=== PATIENT | female | born 1935 | race Caucasian/White ===

== ENCOUNTER → 2016-03-23 | Outpatient (CLI) | payer OTHER ==
[~2016-03-23] MED LIST: ASPI-808 PO; BENA10TA2 PO; BETAXOLOL; BNZ20T; CHOL10003 PO; IBUP-1773 PO; METO-270 PO
--- NOTE | 2016-03-23 14:13 | Diagnostic Imaging Report ---
PROCEDURE: CT abdomen and pelvis without contrast. TECHNIQUE: Multiple contiguous axial images were obtained through the abdomen and pelvis without the use of intravenous contrast. INDICATION: Gross hematuria. FINDINGS: The previous CT chest and abdomen exam performed on 05/03/2007 failed to show any sign of a renal mass or of an acute abnormality of either kidney. On this study, the kidneys appear similar to the prior exam. There is perinephric stranding about both kidneys but there is no evidence for hydronephrosis. There is no evidence for nephrolithiasis and there is no solid renal mass identified with certainty. In the interval since the previous study however, a very small 5 mm hyperdense nodule has developed along the anterior aspect of the inferior pole of the right kidney. This finding is most likely a benign process but ultrasound would be recommended to better characterize this density. There is no sign of urolithiasis. The urinary bladder is not well distended and consequently difficult to assess. There is no obvious bladder mass evident. The uterus is not enlarged. There are few diverticula in the sigmoid colon but there is no evidence for acute diverticulitis. As noted on the prior exam, the patient has undergone a right hemicolectomy. The anastomosis seems unchanged when compared to the previous study. Also, as noted on the prior exam, there has been a prior cholecystectomy. The proximal biliary tree is somewhat prominent but not significantly changed when compared to the prior study. There is no evidence for choledocholithiasis. The pancreas, the adrenals, the spleen, the aorta, and inferior vena cava show no sign of an acute abnormality. The stomach is not well distended and consequently difficult to assess. The lung bases are clear. The bone window show no evidence for fracture or for destructive lesion. IMPRESSION: 1. There is no sign of a solid renal mass or of hydronephrosis of either kidney to account for the patient's gross hematuria. The bladder is not well distended and consequently difficult to evaluate. There is no obvious bladder mass evident. If further study of the bladder is desired, then cystoscopy would be recommended. 2. The small 5 mm hyperdense nodule along the anterior aspect of the inferior pole of the right kidney is most likely a benign process. Ultrasound would be recommended for further study. 3. There is no acute abnormality of the abdomen or pelvis identified. Dictated by: Dictated on workstation # [id number]
== END ==
LOC: RAD 12:37
PROVIDERS: ATTEND Urology
DX: R31.0 Gross hematuria (principal)
CPT/HCPCS: 74176

== ENCOUNTER → 2016-03-29 | Outpatient (CLI) | payer OTHER ==
--- NOTE | 2016-03-29 15:21 | Diagnostic Imaging Report ---
Ultrasound of the right kidney. INDICATION: Focal lesion seen on CT scan in the right kidney. FINDINGS: The right kidney is 10.3 cm in length. There is an exophytic lesion from the lower pole of the right kidney measuring 0.7 cm in size with through transmission and no internal vascularity with color Doppler demonstrated likely related to a cyst. No hydronephrosis. IMPRESSION: A 0.7 cm exophytic lesion from the lower pole of the right kidney is likely a cyst. Dictated by: Dictated on workstation # [id number]
== END ==
LOC: RAD 11:27
PROVIDERS: ATTEND Urology
DX: N28.1 Cyst of kidney, acquired (principal)
CPT/HCPCS: 76775

== ENCOUNTER → 2016-04-11 | Outpatient (CLI) | payer OTHER ==
--- NOTE | 2016-04-11 14:42 | Diagnostic Imaging Report ---
EXAMINATION: Transabdominal and transvaginal pelvic ultrasound. INDICATION: Vaginal bleeding. FINDINGS: The uterus is 5.3 x 3.6 x 3.1 CM. There is significant endometrial thickening measuring 2.5 CM in thickness with internal vascularity seen concerning for endometrial carcinoma, hyperplasia or a polyp. The ovaries are obscured by bowel gas. IMPRESSION: The endometrial thickening and hypervascularity are concerning for endometrial cancer, hyperplasia or underlying polyp. Report was faxed to office of Margarita Earl by buddy at 2:41 p.m. Dictated by: Dictated on workstation # [id number]
== END ==
LOC: RAD 10:15
PROVIDERS: ATTEND Nurse Practitioner Family
DX: R93.5 Abnormal findings on diagnostic imaging of other abdominal regions, including retroperitoneum (principal); N93.9 Abnormal uterine and vaginal bleeding, unspecified
CPT/HCPCS: 76830; 76856

== ENCOUNTER 2016-05-01 12:21 | Outpatient (CLI) | payer OTHER ==
[~2016-05-01] VITALS: Ht 157.5 cm; Wt 78.5 kg
[~2016-05-01 12:21] MED LIST changes: -ASPI-808 PO; -BENA10TA2 PO; -CHOL10003 PO; -IBUP-1773 PO; -METO-270 PO
[2016-05-01] MEDS ORDERED: CHOL10003 PO (12:44)
[2016-05-01] MEDS ORDERED: METO-270 PO (12:44)
[2016-05-01] MEDS ORDERED: BENA10TA2 PO (12:44)
[2016-05-01] MEDS ORDERED: ASPI-808 PO (12:44)
[2016-05-01 13:04] VITALS: BP 150/86
[2016-05-01 14:04] LABS: BASOPHILS % (AUTO) 1 % (0-10); EOSINOPHILS # (AUTO) 0.3 10^3/uL (0.0-0.3); EOSINOPHILS % (AUTO) 4 % (0-10); LYMPHOCYTES # (AUTO) 1.4 X 10^3 (1.0-4.0); LYMPHOCYTES % (AUTO) 21 % (12-44); MEAN CORPUSCULAR HEMOGLOBIN 31 PG (25-34); MEAN CORPUSCULAR HGB CONC 34 G/DL (32-36); MEAN CORPUSCULAR VOLUME 91 FL (80-99); MEAN PLATELET VOLUME 10.6 FL (7.4-10.4); MONOCYTES # (AUTO) 0.6 X 10^3 (0.0-1.0); MONOCYTES % (AUTO) 9 % (0-12); NEUTROPHILS # (AUTO) 4.4 X 10^3 (1.8-7.8); NEUTROPHILS % (AUTO) 66 % (42-75); PLATELET COUNT 262 10^3/uL (130-400); RED BLOOD COUNT 4.13 10^6/uL (4.35-5.85); RED CELL DISTRIBUTION WIDTH 12.8 % (10.0-14.5); WHITE BLOOD COUNT 6.7 10^3/uL (4.3-11.0)
== END 2016-05-01 14:00 | disposition home or self-care (01) ==
LOC: PREOP 12:21
PROVIDERS: ATTEND Obstetrics & Gynecology
DX: Z01.812 Encounter for preprocedural laboratory examination (principal); Z11.2 Encounter for screening for other bacterial diseases; N95.0 Postmenopausal bleeding; R93.8 Abnormal findings on diagnostic imaging of other specified body structures
CPT/HCPCS: 36415; 85025; 86850; 86900; 86901; 87081

== ENCOUNTER 2016-05-04 08:05 | Day surgery (SDC) | payer OTHER ==
[~2016-05-04] VITALS: Ht 157.5 cm; Wt 78.5 kg
[~2016-05-04 08:05] MED LIST changes: +ASPI-808 PO; +BENA10TA2 PO; +CHOL10003 PO; +METO-270 PO
--- OUTSIDE RECORDS SUMMARY | 2016-05-04 08:16 | XMS REPORT | Continuity of Care Document ---
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 Medications Current Home Medications Medication Dose Units Route Directions Days/Qty Instructions Start Date Aspirin 325 Mg 325 Mg Oral Daily 05/01/16 Benazepril Hcl 10 Mg 10 Mg Oral Daily 05/01/16 Cholecalciferol (Vitamin D3) 1,000 Unit 1,000 Unit Oral Daily Metoprolol Succinate 25 Mg 25 Mg Oral Bedtime 05/01/16 Past Home Medications Medication Directions Ordered Status Benazepril Hcl 20 Mg Tablet, 03/12/07 Discontinued [Betaxolol] , 03/12/07 Discontinued Social History Social History Problem Response Recorded Date/Time Alcohol Use Denies Use 05/01/2016 12:35pm Recreational Drug Use No 05/01/2016 12:35pm Recent Foreign Travel No 05/01/2016 12:33pm Recent Infectious Disease Exposure No 05/01/2016 12:33pm Sexually Transmitted Disease No 05/01/2016 12:35pm HIV/AIDS No 05/01/2016 12:35pm Smoking Status Never a Smoker 05/01/2016 12:35pm Recent Hopitalizations No 05/01/2016 12:35pm Sexually Transmitted Disease No 05/01/2016 12:35pm Query Response Start Date Stop Date Smoking Status Never a Smoker Hospital Discharge Instructions No hospital discharge instructions. Plan of Care Discharge Date 05/01/16 2:00pm Prescriptions See Medication Section Functional Status No functional status results. Allergies, Adverse Reactions, Alerts Allergen Type Severity Reaction Status Last Updated Eorrged-Kfc-Ocn Reductase Inhibitors ([id number]) Allergy Intermediate MUSCLE WEAKNESS Active 05/01/16 Niacin Allergy Unknown FLUSHED/ALMOST PASSED Active 05/01/16 Immunizations No immunization records. Vital Signs Acute Vital Signs Vital Response Date/Time Pulse Rate (adult) 85 bpm (60 - 90) 05/01/2016 1:04pm Respiratory Rate 16 bpm (12 - 24) 05/01/2016 1:04pm O2 Sat by Pulse Oximetry 98 % (88 - 100) 05/01/2016 1:04pm Blood Pressure 150/86 mm Hg 05/01/2016 1:04pm Blood Pressure Mean 107 mm Hg 05/01/2016 1:04pm Pain Numeric Pain Scale 0-No Pain 05/01/2016 1:04pm Height (Feet) 5 feet 05/01/2016 12:33pm Height (Inches) 2.00 inches 05/01/2016 12:33pm Height (Calculated Centimeters) 157.813834 cm 05/01/2016 12:33pm Weight (Pounds) 173 pounds 05/01/2016 12:33pm Weight (Ounces) 0.0 oz 05/01/2016 12:33pm Weight (Calculated Grams) 67897.48 gm 05/01/2016 12:33pm Weight (Calculated Kilograms) 78.657552 kilograms 05/01/2016 12:33pm Calculated BMI 31.6 05/01/2016 12:33pm Results Pending Laboratory Results Test Name Collection Date/Time Pending Microbiology Results Procedure Source Collection Date/Time Procedures No known history of procedures. Encounters Encounter Location Arrival/Admit Date Discharge/Depart Date Attending Provider Registered Clinic [facility] 05/01/16 12:21pm BLAIR SILVEIRA DO Registered Clinic [facility] 04/11/16 10:15am GILMAR PATE APRN
--- OUTSIDE RECORDS SUMMARY | 2016-05-04 08:17 | XMS REPORT | Continuity of Care Document ---
Author Author [facility] Organization [facility] Address Unknown Phone Unavailable Care Team Providers Care User Support Analyst Supervisor Name Role Phone MONCHO SAN MD PCP Insurance Providers Payer Name Policy Number Subscriber Name Relationship [facility] [id number] Sherine Barragan 18 Self / Same As Patient Advance Directives Directive Response Recorded Date/Time Advance Directives Yes 05/01/16 12:35pm Health Care Power of Yeast Supervisor No 05/01/16 12:35pm Organ Donor No 03/12/07 [...] Allergen Type Severity Reaction Status Last Updated Yrhdqxi-Rvp-Cbd Reductase Inhibitors ([id number]) Allergy Intermediate MUSCLE WEAKNESS Active 05/01/16 Niacin [...] 2.00 inches 05/01/2016 12:33pm Height (Calculated Centimeters) 157.411491 cm 05/01/2016 12:33pm Weight (Pounds) 173 pounds 05/01/2016 12:33pm Weight (Ounces) 0.0 oz 05/01/2016 12:33pm Weight (Calculated Grams) 64545.48 gm 05/01/2016 12:33pm Weight (Calculated Kilograms) 78.413983 kilograms 05/01/2016 12:33pm Calculated BMI 31.6 05/01/2016 12:33pm Results Pending Laboratory Results Test Name Collection Date/Time Pending Microbiology Results Procedure Source Collection Date/Time Procedures No known history of procedures. Encounters Encounter Location Arrival/Admit Date Discharge/Depart Date Attending Provider Registered Clinic [facility] 05/01/16 12:21pm BLAIR SILVEIRA DO Registered Clinic [facility] 04/11/16 10:15am GILMAR PATE APRN
[2016-05-04 08:25] VITALS: BP 177/99
[2016-05-04] MEDS ORDERED: LACTATED RINGERS 1,000 ML IV SCH (08:25)
[2016-05-04] MEDS ORDERED: ONDANSETRON 4 MG/2 ML (SDV) Z0FRAN ONE (10:53)
[2016-05-04] MEDS ORDERED: fentaNYL INJECTION 100 MCG/2 ML AMP ONE (10:53)
[2016-05-04] MEDS ORDERED: LIDOCAINE PF 2% 10 ML (XYLOCAINE) AMP ONE (10:53)
[2016-05-04] MEDS ORDERED: SEVOFLURANE (ULTANE) 15 ML INHAL SOLN ONE (10:53)
[2016-05-04] MEDS ORDERED: proPOfol 200 MG/20 ML (DIPRIVAN) VIAL IV ONE (10:53)
[2016-05-04] MEDS ORDERED: LACTATED RINGERS 1,000 ML IV ONE (10:53)
[2016-05-04] MEDS ORDERED: LACTATED RINGERS 1,000 ML IV PRN (11:03)
[2016-05-04] MEDS ORDERED: D5 LR IV SOLUTION 1,000 ML IV SCH (11:09)
--- NOTE | 2016-05-04 11:09 | Progress Note-Pre Operative ---
Pre-Operative Progress Note H&P Reviewed The H&P was reviewed, patient examined and no changes noted. Date H&P Reviewed: May 04, 2016 Time H&P Reviewed: 10:30 Pre-Operative Diagnosis: PMB BLAIR SILVEIRA DO May 04, 2016 11:09 am
[2016-05-04] MEDS ORDERED: IBUP-1773 PO (11:11)
--- NOTE | 2016-05-04 11:12 | Discharge Inst-Women's Service ---
Discharge Inst-Women's Serv Depart Medication/Instructions New, Converted or Re-Newed RX: RX on Chart Consults/Follow Up Additional Follow Up: Yes Orders/Referrals Dr. Silveira 2 week follow up Activity Activity: Activity as Tolerated Driving Instructions: You May Drive NO SMOKING: NO SMOKING Nothing Inside Vagina: No Douching, No [place], No Tampons Diet Discharge Diet: No Restrictions Symptoms to Report to : Bleeding Excessive, Pain Increased, Fever Over 101 Degrees F, Vaginal Bleeding Increase, Questions/Concerns For Any Problems or Questions: Contact Your Physician BLAIR SILVEIRA DO May 04, 2016 11:12 am
[2016-05-04] MEDS ORDERED: BUPIVACAINE 0.25% 30 ML (SENSORCAINE) VIAL ONE (11:13)
[2016-05-04] MEDS ORDERED: ONDANSETRON 4 MG/2 ML (SDV) Z0FRAN IVP PRN ×2 (11:15→12:00)
[2016-05-04] MEDS ORDERED: KETOROLAC 30 MG/ML VIAL IVP ONE (11:15)
[2016-05-04] MEDS ORDERED: ESMOLOL 100 MG/10 ML (BREVIBLOC) VIAL ONE (11:25)
[2016-05-04] MEDS ORDERED: MEPERIDINE (DEMEROL) INJ 50 MG/ML IVP PRN (12:00)
[2016-05-04] MEDS: morphine INJ 10 MG/ML 1ML (SYR OR VIAL) IVP PRN ×2 (12:08→12:18)
[2016-05-04 12:45] VITALS: BP 167/69
[2016-05-04 13:15] VITALS: BP 174/85
[2016-05-04 13:23] VITALS: BP 174/85
--- NOTE | 2016-05-04 14:09 | OPERATIVE REPORT ---
PROCEDURE PHYSICIAN: BLAIR SILVEIRA DATE OF PROCEDURE: 05/04/2016 PREOPERATIVE DIAGNOSIS: Postmenopausal bleeding. POSTOPERATIVE DIAGNOSES: Postmenopausal bleeding. PROCEDURE: D&C with removal of urethral polyp. SURGEON: Dr. Blair Silveira. ANESTHESIA: LMA. ESTIMATED BLOOD LOSS: Minimal. URINE OUTPUT: 50 mL, clear at the end of the procedure. FLUIDS: In 1200 mL lactated ringer solution. FINDINGS: A urethral red lesion, which appears to be a polyp. Normal appearing endometrial tissue. A small amount was collected on endometrial curettings. SPECIMEN SENT: Urethral polyp and endometrial curettings. INDICATIONS FOR THE PROCEDURE: This 80-year-old female is a consultation in my office for postmenopausal bleeding episodes. She was counseled extensively in my office about what this could mean and the underlying causes which could in fact be malignancy or hyperplasia. I discussed with the patient and recommended proceeding with diagnostic measures in the form of D&C. This could also be curative as well if she continued to have bleeding. The risk of the procedure was discussed with the patient in detail including risk of bleeding, infection, perforation, damage to the uterus. After everything was discussed with the patient she was agreeable to proceed. Consent was obtained in the preoperative area and the patient was taken to the operating room. OPERATIVE REPORT IN DETAIL: Once in the operating room, general anesthesia was found to be adequate. She was placed in dorsal lithotomy position, prepped and draped in the normal sterile fashion. A timeout is performed. I first empty the patient's bladder and when I do so, I am able to see this red lesion protruding from the urethra. I grasp it using a long Allis clamp and I am able to remove it by twisting it and pulling. Once it is then twisted around several times the lesion does pop-off. There is a significant amount of bleeding noted from it which is made hemostatic using silver nitrate after which there is no bleeding noted and urethral patency is confirmed using straight catheterization. I then used a weighted speculum to retract the posterior wall of the vagina which allows me to grasp the cervix using a long Allis clamp. I gently dilate the cervix using Hegar dilators after performing a paracervical block at 3 and 9 o'clock positions using 0.25% Marcaine. Care was taken to infiltrate before injecting. A total of 10 mL are used. Once I dilate the cervix I collect endometrial curettings which is not to seen to be an overt amount of tissue. There is no active bleeding noted from that spot either, after which I remove all other instruments from the patient's vagina. There is an area of tearing due to vaginal atrophy on the posterior vaginal fourchette which is made hemostatic using silver nitrate. Other than that, the patient tolerated the procedure well and was taken to recovery area in stable condition. Lap and sponge count correct at the end of the procedure. Instrument count is correct as well. Job ID: [id number] Dictated Date: 05/04/2016 11:50:07 Campus Security Officer Date: 05/04/2016 13:39:40 / zaida
== END 2016-05-04 13:20 | disposition home or self-care (01) ==
LOC: SDC 08:05
PROVIDERS: ATTEND Obstetrics & Gynecology
DX: N95.0 Postmenopausal bleeding (principal); N36.2 Urethral caruncle
CPT/HCPCS: 88305; 94664

== ENCOUNTER → 2016-06-07 | Outpatient (CLI) | payer OTHER ==
[~2016-06-07] MED LIST changes: +IBUP-1773 PO
--- NOTE | 2016-06-08 20:23 | Diagnostic Imaging Report ---
Bilateral screening mammogram. The current study was also evaluated with a Computer Aided Detection (CAD) system. INDICATION: Screening. No current complaints stated on the questionnaire. COMPARISON: 03/02/15. FINDINGS: The breasts are composed of heterogeneously dense parenchyma which may decrease mammographic sensitivity. There are benign-appearing calcifications seen. Allowing for technique and positional differences, no suspicious change is seen. IMPRESSION: Dense breasts with no definite change. ACR BI-RADS Category 2: Benign findings. Result letter will be mailed to the patient. Note: At least 10% of breast cancer is not imaged by mammography. Dictated by: Dictated on workstation # [id number]
== END ==
LOC: RAD 10:51
PROVIDERS: ATTEND Nurse Practitioner Family
DX: C54.1 Malignant neoplasm of endometrium (principal)
CPT/HCPCS: 77067

== ENCOUNTER 2016-08-21 11:12 | Outpatient (RCR) | payer MEDICARE, OTHER ==
[~2016-08-21 11:12] MED LIST changes: -METO-270 PO; +METO-387 PO
[2016-11-23] MEDS ORDERED: HYDR-3816 PO (13:52)
== END 2016-08-30 10:55 | disposition home or self-care (01) ==
LOC: CR 11:12
PROVIDERS: ATTEND Internal Medicine Critical Care Medicine
DX: Z48.812 Encounter for surgical aftercare following surgery on the circulatory system (principal); Z95.5 Presence of coronary angioplasty implant and graft
CPT/HCPCS: 93798

== ENCOUNTER → 2016-11-02 | Outpatient (CLI) | payer MEDICARE ==
[~2016-11-02] MED LIST changes: +BARIUM SUSPENSION 2.1% (VANILLA SILQ) 450 ML PO ONE; +CATHETER FLUSH 10 ML SYR IV PRN; +IOHEXOL 350 MG/ML 100 ML (OMNIPAQUE 350) VIAL IV ONE; +METO-270 PO; -METO-387 PO; +NS 100 ML (IVPB) BAG IV ONE
--- NOTE | 2016-11-02 09:52 | Diagnostic Imaging Report ---
PROCEDURE: CT chest with contrast, CT abdomen and pelvis with and without contrast. TECHNIQUE: Pre and post intravenous contrast axial imaging of the abdomen and pelvis and post contrast axial imaging of the chest were performed. INDICATION: Uterine cancer. The previous CT abdomen/pelvis exam of 03/23/2016, noted that the uterus was not enlarged. Reportedly, in the interval since the prior exam, the patient has undergone a hysterectomy, and a diagnosis of uterine carcinoma has been established. On this exam there is a very small amount of free fluid low in the pelvis. This is nonspecific in appearance. There is no pelvic mass or free fluid collection noted. The urinary bladder is grossly unremarkable. As noted on the prior exam there are few diverticula in the sigmoid colon, but there is no evidence for acute diverticulitis. The appendix is not well visualized, but there are no indirect signs of acute appendicitis. The liver is of lower density than usually seen. This does suggest fatty metamorphosis. There is no focal mass involving the liver. The spleen, pancreas, adrenals, aorta, and inferior vena cava and kidneys show no sign of an acute abnormality. The 5-mm hyperdense nodule along the anterior aspect of the inferior pole of the right kidney seen on the previous exam is again evident and does not appear to have changed significantly. Most likely this is a benign process. The gallbladder is surgically absent. The stomach is partially filled with oral contrast and consequently difficult to assess. There is no obvious gastric abnormality evident. Images through the thorax show that the heart size is mildly enlarged. There are coronary artery calcifications evident. The aorta is not abnormally dilated, and there is no sign of a dissection. There is no defect within the pulmonary arteries to indicate a pulmonary embolus. The lungs are generally clear and well aerated. There is no mediastinal or hilar adenopathy. The thyroid gland is unremarkable. There is no obvious breast mass. The bone windows show no sign of a fracture or of a destructive lesion. IMPRESSION: 1. In the interval since the prior exam the patient has undergone a hysterectomy. There is no pelvic mass or adenopathy noted. There is a small amount of nonspecific free fluid in the pelvis however. 2. The remainder of the abdomen/ pelvis is stable when compared with the prior study. No new abnormality has developed, and there is no sign of metastatic disease. 3. There is no acute cardiopulmonary abnormality identified, and there is no evidence for metastatic disease to the thorax either. 4. The heart is mildly enlarged, and there are coronary artery calcifications evident. Dictated by: Dictated on workstation # [id number]
== END ==
LOC: RAD 08:24
PROVIDERS: ATTEND Internal Medicine Hematology & Oncology
DX: C55 Malignant neoplasm of uterus, part unspecified (principal); I25.10 Atherosclerotic heart disease of native coronary artery without angina pectoris; Z90.710 Acquired absence of both cervix and uterus
CPT/HCPCS: 71260; 74178

== ENCOUNTER 2016-11-17 10:38 | Outpatient (RCR) | payer MEDICARE ==
[2016-11-01 10:45] LABS: BASOPHILS % (AUTO) 1 % (0-10); EOSINOPHILS # (AUTO) 0.2 10^3/uL (0.0-0.3); EOSINOPHILS % (AUTO) 3 % (0-10); LYMPHOCYTES # (AUTO) 1.6 X 10^3 (1.0-4.0); LYMPHOCYTES % (AUTO) 25 % (12-44); MEAN CORPUSCULAR HEMOGLOBIN 30 PG (25-34); MEAN CORPUSCULAR HGB CONC 33 G/DL (32-36); MEAN CORPUSCULAR VOLUME 91 FL (80-99); MONOCYTES # (AUTO) 0.6 X 10^3 (0.0-1.0); MONOCYTES % (AUTO) 9 % (0-12); NEUTROPHILS % (AUTO) 62 % (42-75); PLATELET COUNT 240 10^3/uL (130-400); RED BLOOD COUNT 4.09 10^6/uL (4.35-5.85); RED CELL DISTRIBUTION WIDTH 12.5 % (10.0-14.5); WHITE BLOOD COUNT 6.5 10^3/uL (4.3-11.0)
[2016-11-01 11:03] LABS: ALBUMIN 3.9 GM/DL (3.2-4.5); BILIRUBIN,TOTAL 0.5 MG/DL (0.1-1.0); CALCIUM 9.4 MG/DL (8.5-10.1); CREATININE SERUM 1.02 MG/DL (0.60-1.30); POTASSIUM 3.8 MMOL/L (3.6-5.0)
[~2016-11-17 10:38] MED LIST changes: -BARIUM SUSPENSION 2.1% (VANILLA SILQ) 450 ML PO ONE; -CATHETER FLUSH 10 ML SYR IV PRN; -IOHEXOL 350 MG/ML 100 ML (OMNIPAQUE 350) VIAL IV ONE; -NS 100 ML (IVPB) BAG IV ONE
[2016-11-21] MEDS ORDERED: MULT-228 PO ×2 (09:38)
[2016-11-23] MEDS ORDERED: HYDR-3816 PO ×2 (13:52)
== END 2016-11-23 15:17 | disposition home or self-care (01) ==
LOC: ONC 10:38
PROVIDERS: ATTEND Internal Medicine Hematology & Oncology
DX: C54.1 Malignant neoplasm of endometrium (principal); I48.91 Unspecified atrial fibrillation; I25.10 Atherosclerotic heart disease of native coronary artery without angina pectoris; I10 Essential (primary) hypertension; E66.9 Obesity, unspecified; Z68.30 Body mass index [BMI] 30.0-30.9, adult; Z90.710 Acquired absence of both cervix and uterus; Z79.82 Long term (current) use of aspirin; Z79.899 Other long term (current) drug therapy
CPT/HCPCS: 36415; 80053; 85025; 99213; 99214

== ENCOUNTER 2016-11-21 05:38 | Outpatient (CLI) | payer MEDICARE ==
[~2016-11-21] VITALS: Ht 157.5 cm; Wt 73.9 kg
[2016-11-21] MEDS ORDERED: MULT-228 PO (09:38)
[2016-11-23] MEDS ORDERED: HYDR-3816 PO (13:52)
== END 2016-11-21 11:57 ==
LOC: PREOP 05:38
PROVIDERS: ATTEND Surgery
DX: Z01.818 Encounter for other preprocedural examination (principal); C54.1 Malignant neoplasm of endometrium

== ENCOUNTER 2016-11-23 10:44 | Day surgery (SDC) | payer MEDICARE ==
[~2016-11-23] VITALS: Ht 157.5 cm; Wt 73.9 kg
[~2016-11-23 10:44] MED LIST changes: +MULT-228 PO
[2016-11-23] MEDS ORDERED: ceFAZolin 1 GM/NS 50 ML IVPB IV ONE ×2 (11:15)
[2016-11-23] MEDS ORDERED: CATHETER FLUSH 10 ML SYR IV PRN (11:15)
[2016-11-23] MEDS ORDERED: HEParin (CENTRAL IV FLUSH) 500 UNIT/5 ML SYR ONE (11:54)
[2016-11-23] MEDS ORDERED: BUP/EPI 0.5% 1:200,000 (MARCAINE) 10ML VIAL IJ ONE ×2 (11:55)
[2016-11-23 11:56] VITALS: BP 131/87
[2016-11-23] MEDS ORDERED: LACTATED RINGERS 1,000 ML IV PRN (11:58)
[2016-11-23] MEDS ORDERED: fentaNYL INJECTION 100 MCG/2 ML AMP ONE (11:59)
[2016-11-23] MEDS ORDERED: MIDAZOLAM 2 MG/2 ML (VERSED) VIAL ONE (11:59)
--- NOTE | 2016-11-23 12:12 | Progress Note-Pre Operative ---
Pre-Operative Progress Note H&P Reviewed The H&P was reviewed, patient examined and no changes noted. Date Seen by Provider: Nov 23, 2016 Time Seen by Provider: 12:00 Date H&P Reviewed: Nov 23, 2016 Time H&P Reviewed: 12:00 Pre-Operative Diagnosis: endometrial cancer CELIO AUSTIN MD Nov 23, 2016 12:12 pm
[2016-11-23] MEDS ORDERED: ONDANSETRON 4 MG/2 ML (SDV) Z0FRAN IVP PRN (12:15)
[2016-11-23] MEDS ORDERED: HYDROcodone/APAP 5 MG/325 MG (LORTAB) TAB PO ONE (12:15)
[2016-11-23] MEDS ORDERED: morphine INJ 10 MG/ML 1ML (SYR OR VIAL) IVP PRN (12:15)
[2016-11-23] MEDS ORDERED: ACETAMINOPHEN 325 MG TABLET/CAPLET (TYLENOL) PO PRN (12:15)
[2016-11-23] MEDS ORDERED: LACTATED RINGERS 1,000 ML IV ONE (12:58)
[2016-11-23] MEDS ORDERED: PROPOFOL INJECTION 50 ML IV ONE (12:58)
[2016-11-23] MEDS ORDERED: proPOfol 200 MG/20 ML (DIPRIVAN) VIAL IV ONE (13:45)
--- NOTE | 2016-11-23 13:51 | Progress Note-Post Operative ---
Post-Operative Progess Note Surgeon (s)/Can Maker (s) Surgeon CELIO AUSTIN MD Can Maker: tin sawant FORESTRY EXTENSION SPECIALIST Pre-Operative Diagnosis endometrial cancer Post-Operative Diagnosis same Procedure & Operative Findings Date of Procedure 11/23/16 Procedure Performed/Findings placement left groshong implantable catheter under flouroscopy. Anesthesia Type MAC with local Estimated Blood Loss Estimated blood loss (mL): minimal Specimens/Packing Specimens Removed none CELIO AUSTIN MD Nov 23, 2016 1:51 pm
[2016-11-23] MEDS ORDERED: HYDR-3816 PO ×2 (13:52)
--- NOTE | 2016-11-23 13:57 | Discharge Inst-Surgical ---
D/C Lap Instructions-GEOVANNA New, Converted, or Re-Newed RX: RX on Chart Follow Up PRN Activity as tolerated Regular Diet Symptoms to Report: Fever over 101 degree F, Nausea/Vomiting Infection Signs and Symptoms to report: Increased redness, Foul odor of wound, Increased drainage Bathing instructions: May shower Operative Area Clean/Dry; Keep incision clean/dry If any problems/questions: Contact your physician or go to Emergency Room CELIO AUSTIN MD Nov 23, 2016 1:57 pm
[2016-11-23 14:25] VITALS: BP 165/88
--- NOTE | 2016-11-23 14:32 | Diagnostic Imaging Report ---
INDICATION: Status post central line placement COMPARISON: 03/13/2007 FINDINGS: Single frontal view of the chest demonstrates normal heart size and pulmonary vascularity. The lungs are well aerated and clear. No large pleural effusion or pneumothorax is seen. The visualized osseous structures show no acute abnormalities. Left subclavian central venous catheter is present with the tip in the high SVC. IMPRESSION: 1. No acute cardiopulmonary process. 2. Left subclavian central venous catheter with tip in the high SVC. Dictated by: Dictated on workstation # [id number]
[2016-11-23 14:55] VITALS: BP 151/81
[2016-11-23 15:25] VITALS: BP 150/82
[2016-11-23 15:40] VITALS: BP 150/82
--- NOTE | 2016-11-23 16:34 | Diagnostic Imaging Report ---
EXAMINATION: Intraoperative view of the chest. INDICATION: Port placement. FLUOROSCOPY TIME: 10 seconds of fluoroscopy time was provided. IMPRESSION: The provided image demonstrates a left subclavian port placed with the tip at the SVC level. Dictated by: Dictated on workstation # [id number]
--- NOTE | 2016-11-23 23:46 | OPERATIVE REPORT ---
DATE OF SERVICE: 11/23/2016 PRIMARY CARE PHYSICIAN: Dr. Desiree Felix. PREOPERATIVE DIAGNOSIS: Endometrial adenocarcinoma. POSTOPERATIVE DIAGNOSIS: Endometrial adenocarcinoma. PROCEDURE: Placement of left subclavian Groshong implantable catheter under fluoroscopy. SURGEON: Dr. Austin. ANIMAL HUMANE AGENT SUPERVISOR: Vinayak Davey APRN. ANESTHESIA: Monitored anesthesia care with local. ESTIMATED BLOOD LOSS: Minimal. FINDINGS: Catheter tip at superior vena cava - right atrial junction. DISPOSITION: The patient tolerated the procedure well. INDICATIONS: The patient is a 80-year-old female who reports that around January 2016, she developed an episode of vaginal bleeding which was a new finding for her. She underwent further evaluation for this and eventually was seen by FIRE EXTINGUISHER REPAIRER. A biopsy was taken and this did confirm adenocarcinoma of the endometrium. During this process, she also developed cardiac issues requiring cardiac catheterization and stent placement as well as anticoagulation therapy. This did delay her surgery. Eventually, she did undergo a laparoscopic total hysterectomy. She has also been seen by oncology. At this time, they do recommend a chemotherapy which will be started within the next few weeks. For this, she will require Groshong implantable catheter. DESCRIPTION OF PROCEDURE: The patient was brought to the operating room, laid supine on the table. After adequate IV pain and sedative medications and monitored anesthesia care, the neck and chest were prepped and draped in standard surgical fashion. A 1% lidocaine with epinephrine was then used to anesthetize the overlying skin in the left subclavian region and just inferior to this. The left subclavian vein was then cannulated with drawing the venous blood. The guidewire was then inserted under fluoroscopy. The cannulated needle removed and a skin incision made using a 15 blade. The dilator and sheath were then introduced over the guidewire. The dilator and the guidewire were then removed and the Groshong implantable catheter was placed under direct visualization and the sheath removed. The catheter tip was placed at the superior vena cava - right atrial junction. The inner wire within the catheter was then removed. The catheter cut down the size from the port placed onto the catheter. The skin incision was then extended laterally and the subcutaneous chest reservoir was then created. A plane between the subcutaneous fat and the anterior pectoralis fascia was created using blunt dissection as well as electrocautery with the visualization of good hemostasis. The port was then placed in the reservoir and sutured to the fascia using interrupted 3-0 Vicryl sutures. The subcutaneous tissue was then reapproximated using 3-0 Vicryl interrupted sutures. Skin was closed using 4-0 Monocryl running subcuticular suture. The wound was then cleaned and covered with Dermabond. The patient tolerated the procedure well. We will get a post-procedure chest x-ray and once placement was confirmed, the catheter may be accessed and used at any time. Job ID: [id number] DocumentID: [id number] Dictated Date: 11/23/2016 14:06:24 Folded Cloth Taper Date: 11/23/2016 23:45:50 Dictated By: CELIO AUSTIN MD
== END 2016-11-23 15:40 | disposition home or self-care (01) ==
LOC: SDC 10:44
PROVIDERS: ATTEND Surgery
DX: C54.1 Malignant neoplasm of endometrium (principal); I25.10 Atherosclerotic heart disease of native coronary artery without angina pectoris; I48.91 Unspecified atrial fibrillation; I10 Essential (primary) hypertension; Z90.710 Acquired absence of both cervix and uterus; Z95.1 Presence of aortocoronary bypass graft; Z79.82 Long term (current) use of aspirin; Z79.899 Other long term (current) drug therapy
CPT/HCPCS: 71010; 87081

== ENCOUNTER 2017-01-29 09:13 | Outpatient (RCR) | payer MEDICARE ==
[2016-11-30 09:55] LABS: BASOPHILS % (AUTO) 0 % (0-10); EOSINOPHILS % (AUTO) 0 % (0-10); HEMATOCRIT 36 % (35-52); LYMPHOCYTES # (AUTO) 0.6 X 10^3 (1.0-4.0); LYMPHOCYTES % (AUTO) 9 % (12-44); MEAN CORPUSCULAR HEMOGLOBIN 31 PG (25-34); MEAN CORPUSCULAR HGB CONC 34 G/DL (32-36); MEAN CORPUSCULAR VOLUME 91 FL (80-99); MEAN PLATELET VOLUME 10.3 FL (7.4-10.4); MONOCYTES # (AUTO) 0.1 X 10^3 (0.0-1.0); MONOCYTES % (AUTO) 1 % (0-12); NEUTROPHILS # (AUTO) 6.8 X 10^3 (1.8-7.8); NEUTROPHILS % (AUTO) 91 % (42-75); PLATELET COUNT 248 10^3/uL (130-400); RED BLOOD COUNT 3.93 10^6/uL (4.35-5.85); RED CELL DISTRIBUTION WIDTH 12.3 % (10.0-14.5); WHITE BLOOD COUNT 7.5 10^3/uL (4.3-11.0)
[2016-11-30 10:10] LABS: ALBUMIN 3.9 GM/DL (3.2-4.5); BILIRUBIN,TOTAL 0.3 MG/DL (0.1-1.0); CALCIUM 9.6 MG/DL (8.5-10.1); CREATININE SERUM 0.9 MG/DL (0.60-1.30); POTASSIUM 3.9 MMOL/L (3.6-5.0); TOTAL PROTEIN 7.2 GM/DL (6.4-8.2)
[2016-12-07 12:36] LABS: BASOPHILS % (AUTO) 0 % (0-10); EOSINOPHILS % (AUTO) 0 % (0-10); HEMATOCRIT 36 % (35-52); HEMOGLOBIN 11.7 G/DL (11.5-16.0); LYMPHOCYTES # (AUTO) 0.4 X 10^3 (1.0-4.0); LYMPHOCYTES % (AUTO) 6 % (12-44); MEAN CORPUSCULAR HEMOGLOBIN 30 PG (25-34); MEAN CORPUSCULAR HGB CONC 33 G/DL (32-36); MEAN CORPUSCULAR VOLUME 91 FL (80-99); MEAN PLATELET VOLUME 10.3 FL (7.4-10.4); MONOCYTES % (AUTO) 0 % (0-12); NEUTROPHILS # (AUTO) 6.4 X 10^3 (1.8-7.8); NEUTROPHILS % (AUTO) 94 % (42-75); PLATELET COUNT 277 10^3/uL (130-400); RED CELL DISTRIBUTION WIDTH 12.2 % (10.0-14.5); WHITE BLOOD COUNT 6.8 10^3/uL (4.3-11.0)
[2016-12-07 12:53] LABS: CALCIUM 9.5 MG/DL (8.5-10.1); CREATININE SERUM 0.96 MG/DL (0.60-1.30); POTASSIUM 4.2 MMOL/L (3.6-5.0)
[2016-12-14 09:48] LABS: BASOPHILS % (AUTO) 1 % (0-10); EOSINOPHILS % (AUTO) 1 % (0-10); HEMATOCRIT 36 % (35-52); LYMPHOCYTES # (AUTO) 0.4 X 10^3 (1.0-4.0); LYMPHOCYTES % (AUTO) 20 % (12-44); MEAN CORPUSCULAR HEMOGLOBIN 31 PG (25-34); MEAN CORPUSCULAR HGB CONC 34 G/DL (32-36); MEAN CORPUSCULAR VOLUME 92 FL (80-99); MEAN PLATELET VOLUME 10.1 FL (7.4-10.4); MONOCYTES % (AUTO) 1 % (0-12); NEUTROPHILS # (AUTO) 1.6 X 10^3 (1.8-7.8); NEUTROPHILS % (AUTO) 78 % (42-75); PLATELET COUNT 301 10^3/uL (130-400); RED BLOOD COUNT 3.88 10^6/uL (4.35-5.85); RED CELL DISTRIBUTION WIDTH 12.2 % (10.0-14.5)
[2016-12-14 10:02] LABS: CALCIUM 9.7 MG/DL (8.5-10.1); CREATININE SERUM 1.02 MG/DL (0.60-1.30); POTASSIUM 4.3 MMOL/L (3.6-5.0)
[2016-12-21 10:49] LABS: BASOPHILS # (AUTO) 0.1 10^3/uL (0.0-0.1); BASOPHILS % (AUTO) 2 % (0-10); EOSINOPHILS # (AUTO) 0.2 10^3/uL (0.0-0.3); EOSINOPHILS % (AUTO) 5 % (0-10); HEMATOCRIT 34 % (35-52); HEMOGLOBIN 11.6 G/DL (11.5-16.0); LYMPHOCYTES % (AUTO) 27 % (12-44); MEAN CORPUSCULAR HEMOGLOBIN 31 PG (25-34); MEAN CORPUSCULAR HGB CONC 34 G/DL (32-36); MEAN CORPUSCULAR VOLUME 92 FL (80-99); MEAN PLATELET VOLUME 9.8 FL (7.4-10.4); MONOCYTES # (AUTO) 0.8 X 10^3 (0.0-1.0); MONOCYTES % (AUTO) 20 % (0-12); NEUTROPHILS # (AUTO) 1.8 X 10^3 (1.8-7.8); NEUTROPHILS % (AUTO) 46 % (42-75); PLATELET COUNT 277 10^3/uL (130-400); RED BLOOD COUNT 3.75 10^6/uL (4.35-5.85); RED CELL DISTRIBUTION WIDTH 13.4 % (10.0-14.5); WHITE BLOOD COUNT 3.9 10^3/uL (4.3-11.0)
[2016-12-21 11:12] LABS: BUN/CREATININE RATIO 18; CALCIUM 9.2 MG/DL (8.5-10.1); CARBON DIOXIDE 23 MMOL/L (21-32); CHLORIDE 110 MMOL/L (98-107); CREATININE SERUM 0.88 MG/DL (0.60-1.30); GFR ESTIMATED > 60; GLUCOSE 118 MG/DL (70-105); POTASSIUM 3.4 MMOL/L (3.6-5.0); SODIUM 142 MMOL/L (135-145)
[2017-01-01 09:43] LABS: BASOPHILS % (AUTO) 0 % (0-10); EOSINOPHILS % (AUTO) 0 % (0-10); HEMATOCRIT 36 % (35-52); HEMOGLOBIN 11.9 G/DL (11.5-16.0); LYMPHOCYTES # (AUTO) 0.5 X 10^3 (1.0-4.0); LYMPHOCYTES % (AUTO) 9 % (12-44); MEAN CORPUSCULAR HEMOGLOBIN 31 PG (25-34); MEAN CORPUSCULAR HGB CONC 34 G/DL (32-36); MEAN CORPUSCULAR VOLUME 92 FL (80-99); MONOCYTES % (AUTO) 1 % (0-12); NEUTROPHILS # (AUTO) 5.1 X 10^3 (1.8-7.8); NEUTROPHILS % (AUTO) 90 % (42-75); PLATELET COUNT 223 10^3/uL (130-400); RED BLOOD COUNT 3.84 10^6/uL (4.35-5.85); RED CELL DISTRIBUTION WIDTH 13.7 % (10.0-14.5); WHITE BLOOD COUNT 5.7 10^3/uL (4.3-11.0)
[2017-01-01 10:01] LABS: BILIRUBIN,TOTAL 0.4 MG/DL (0.1-1.0); CALCIUM 9.4 MG/DL (8.5-10.1); CREATININE SERUM 0.97 MG/DL (0.60-1.30); MAGNESIUM 1.9 MG/DL (1.8-2.4); POTASSIUM 4.5 MMOL/L (3.6-5.0); TOTAL PROTEIN 6.8 GM/DL (6.4-8.2)
[2017-01-08 10:02] LABS: BASOPHILS % (AUTO) 1 % (0-10); EOSINOPHILS # (AUTO) 0.3 10^3/uL (0.0-0.3); EOSINOPHILS % (AUTO) 6 % (0-10); HEMATOCRIT 34 % (35-52); HEMOGLOBIN 11.5 G/DL (11.5-16.0); LYMPHOCYTES # (AUTO) 1.1 X 10^3 (1.0-4.0); LYMPHOCYTES % (AUTO) 23 % (12-44); MEAN CORPUSCULAR HEMOGLOBIN 32 PG (25-34); MEAN CORPUSCULAR HGB CONC 34 G/DL (32-36); MEAN CORPUSCULAR VOLUME 93 FL (80-99); MEAN PLATELET VOLUME 9.6 FL (7.4-10.4); MONOCYTES # (AUTO) 0.3 X 10^3 (0.0-1.0); MONOCYTES % (AUTO) 7 % (0-12); NEUTROPHILS % (AUTO) 63 % (42-75); PLATELET COUNT 234 10^3/uL (130-400); RED BLOOD COUNT 3.65 10^6/uL (4.35-5.85); RED CELL DISTRIBUTION WIDTH 13.4 % (10.0-14.5); WHITE BLOOD COUNT 4.8 10^3/uL (4.3-11.0)
[2017-01-08 10:16] LABS: BUN/CREATININE RATIO 19; CALCIUM 9.2 MG/DL (8.5-10.1); CARBON DIOXIDE 24 MMOL/L (21-32); CHLORIDE 108 MMOL/L (98-107); CREATININE SERUM 0.84 MG/DL (0.60-1.30); GFR ESTIMATED > 60; GLUCOSE 96 MG/DL (70-105); POTASSIUM 4.6 MMOL/L (3.6-5.0); SODIUM 139 MMOL/L (135-145)
[2017-01-15 09:25] LABS: BASOPHILS % (AUTO) 1 % (0-10); EOSINOPHILS # (AUTO) 0.1 10^3/uL (0.0-0.3); EOSINOPHILS % (AUTO) 2 % (0-10); HEMATOCRIT 32 % (35-52); HEMOGLOBIN 10.8 G/DL (11.5-16.0); LYMPHOCYTES # (AUTO) 1.3 X 10^3 (1.0-4.0); LYMPHOCYTES % (AUTO) 32 % (12-44); MEAN CORPUSCULAR HEMOGLOBIN 32 PG (25-34); MEAN CORPUSCULAR HGB CONC 34 G/DL (32-36); MEAN CORPUSCULAR VOLUME 93 FL (80-99); MEAN PLATELET VOLUME 9.7 FL (7.4-10.4); MONOCYTES # (AUTO) 0.4 X 10^3 (0.0-1.0); MONOCYTES % (AUTO) 9 % (0-12); NEUTROPHILS # (AUTO) 2.3 X 10^3 (1.8-7.8); NEUTROPHILS % (AUTO) 57 % (42-75); PLATELET COUNT 291 10^3/uL (130-400); RED BLOOD COUNT 3.43 10^6/uL (4.35-5.85); RED CELL DISTRIBUTION WIDTH 13.3 % (10.0-14.5); WHITE BLOOD COUNT 4.1 10^3/uL (4.3-11.0)
[2017-01-15 09:42] LABS: CALCIUM 9.1 MG/DL (8.5-10.1); CREATININE SERUM 1.01 MG/DL (0.60-1.30); POTASSIUM 4.3 MMOL/L (3.6-5.0)
[2017-01-22 11:01] LABS: BASOPHILS % (AUTO) 1 % (0-10); EOSINOPHILS # (AUTO) 0.1 10^3/uL (0.0-0.3); EOSINOPHILS % (AUTO) 2 % (0-10); HEMATOCRIT 32 % (35-52); HEMOGLOBIN 10.7 G/DL (11.5-16.0); LYMPHOCYTES # (AUTO) 1.3 X 10^3 (1.0-4.0); LYMPHOCYTES % (AUTO) 36 % (12-44); MEAN CORPUSCULAR HEMOGLOBIN 32 PG (25-34); MEAN CORPUSCULAR HGB CONC 34 G/DL (32-36); MEAN CORPUSCULAR VOLUME 94 FL (80-99); MEAN PLATELET VOLUME 9.7 FL (7.4-10.4); MONOCYTES # (AUTO) 0.4 X 10^3 (0.0-1.0); MONOCYTES % (AUTO) 11 % (0-12); NEUTROPHILS # (AUTO) 1.8 X 10^3 (1.8-7.8); NEUTROPHILS % (AUTO) 50 % (42-75); PLATELET COUNT 314 10^3/uL (130-400); RED BLOOD COUNT 3.36 10^6/uL (4.35-5.85); RED CELL DISTRIBUTION WIDTH 13.7 % (10.0-14.5); WHITE BLOOD COUNT 3.7 10^3/uL (4.3-11.0)
[2017-01-22 11:25] LABS: BUN/CREATININE RATIO 26; CALCIUM 9.1 MG/DL (8.5-10.1); CARBON DIOXIDE 22 MMOL/L (21-32); CHLORIDE 110 MMOL/L (98-107); CREATININE SERUM 0.84 MG/DL (0.60-1.30); GFR ESTIMATED > 60; GLUCOSE 103 MG/DL (70-105); POTASSIUM 4.2 MMOL/L (3.6-5.0); SODIUM 139 MMOL/L (135-145)
[~2017-01-29] VITALS: Ht 154.9 cm; Wt 75.3 kg
[~2017-01-29 09:13] MED LIST changes: +ALTEPLASE 2 MG (CATHFLO) CANCER CENTER IV ONE; +CARBOPLATIN 140 MG in D5W 50 ML IV(CANCER CTR) 50 ML IV SCH; +CARBOPLATIN IV SCH; +CYANOCOBALAMIN INJ 1000 MCG/ML (CANCER CENTER) ONE; +D5W IV SCH; +DEXAMETHASONE IV ONE; +FAMOTIDINE 20MG/2ML IV (CANCER CTR) IV SCH; +HYDR-3816 PO; -METO-270 PO; +METO-387 PO; +NS IV 1000 ML (CANCER CTR) IV SCH; +PACLITAXEL 110 MG in NORMAL SALINE (CANCER CENTER) 250 ML IV SCH; +PACLITAXEL 140 MG in NORMAL SALINE (CANCER CENTER) 250 ML IV SCH; +PALONOSETRON 0.25 MG, DEXAMETHASONE 10 MG/NS 50 ML IVPB IV PRN; +PALONOSETRON HCL IV ONE; +[UNRECOGNIZED DRUG - OTHER] IV ONE; +diphenhydrAMINE 25 MG TAB (BENADRYL) CANCER CENTER PO SCH
== END 2017-02-26 | disposition home or self-care (01) ==
LOC: ONC 09:13
PROVIDERS: ATTEND Internal Medicine Hematology & Oncology
DX: Z51.11 Encounter for antineoplastic chemotherapy (principal); C54.1 Malignant neoplasm of endometrium; I48.91 Unspecified atrial fibrillation; I25.10 Atherosclerotic heart disease of native coronary artery without angina pectoris; I10 Essential (primary) hypertension; E66.9 Obesity, unspecified; Z68.30 Body mass index [BMI] 30.0-30.9, adult; Z90.710 Acquired absence of both cervix and uterus; Z79.82 Long term (current) use of aspirin; Z79.899 Other long term (current) drug therapy
CPT/HCPCS: 36415; 36591; 36593; 80048; 80053; 83735; 85025; 87324; 87449; 96374; 96375; 96413; 96417

== ENCOUNTER 2017-05-28 12:50 | Outpatient (RCR) | payer MEDICARE ==
[~2017-05-28 12:50] MED LIST changes: -ALTEPLASE 2 MG (CATHFLO) CANCER CENTER IV ONE; -CARBOPLATIN 140 MG in D5W 50 ML IV(CANCER CTR) 50 ML IV SCH; -CARBOPLATIN IV SCH; -CYANOCOBALAMIN INJ 1000 MCG/ML (CANCER CENTER) ONE; -D5W IV SCH; -DEXAMETHASONE IV ONE; -FAMOTIDINE 20MG/2ML IV (CANCER CTR) IV SCH; +HYDR-34 PO; -HYDR-3816 PO; -NS IV 1000 ML (CANCER CTR) IV SCH; -PACLITAXEL 110 MG in NORMAL SALINE (CANCER CENTER) 250 ML IV SCH; -PACLITAXEL 140 MG in NORMAL SALINE (CANCER CENTER) 250 ML IV SCH; -PALONOSETRON 0.25 MG, DEXAMETHASONE 10 MG/NS 50 ML IVPB IV PRN; -PALONOSETRON HCL IV ONE; -[UNRECOGNIZED DRUG - OTHER] IV ONE; -diphenhydrAMINE 25 MG TAB (BENADRYL) CANCER CENTER PO SCH
== END 2017-06-03 | disposition home or self-care (01) ==
LOC: ONC 12:50
PROVIDERS: ATTEND Internal Medicine Hematology & Oncology
DX: C54.1 Malignant neoplasm of endometrium (principal); I48.91 Unspecified atrial fibrillation; I25.10 Atherosclerotic heart disease of native coronary artery without angina pectoris; I10 Essential (primary) hypertension; E66.9 Obesity, unspecified; Z68.30 Body mass index [BMI] 30.0-30.9, adult; Z90.710 Acquired absence of both cervix and uterus; Z79.82 Long term (current) use of aspirin; Z79.899 Other long term (current) drug therapy; Z45.2 Encounter for adjustment and management of vascular access device
CPT/HCPCS: 99213

== ENCOUNTER → 2017-05-31 | Outpatient (CLI) | payer MEDICARE ==
[~2017-05-31] MED LIST changes: +BARIUM SUSPENSION 2.1% (VANILLA SILQ) 450 ML PO ONE; +CATHETER FLUSH 10 ML SYR IV PRN; +IOHEXOL 350 MG/ML 100 ML (OMNIPAQUE 350) VIAL IV ONE; +NS 250 ML (IVPB) BAG IV ONE
--- NOTE | 2017-05-31 15:32 | Diagnostic Imaging Report ---
PROCEDURE: CT chest, abdomen, and pelvis with contrast. TECHNIQUE: Multiple contiguous axial images were obtained through the chest, abdomen, and pelvis after the administration of intravenous contrast. INDICATION: Endometrial adenocarcinoma. FINDINGS: The previous CT chest, abdomen, and pelvis exam of 11/02/2016 noted postsurgical changes consistent with a prior hysterectomy. On this exam, the images of the pelvis again show that the uterus is surgically absent. There is no pelvic mass or free fluid collection evident. The urinary bladder is only partially filled and consequently difficult to assess. There is no obvious bladder abnormality evident. There is diverticulosis of the sigmoid and descending colon, but there is no sign of acute diverticulitis. The appendix was not well-visualized, but there are no indirect signs of acute appendicitis. The previous study did show a small 5 mm hypodense nodule along the anterior aspect of the inferior pole of the left kidney. That finding is again evident and appears stable. This may represent a small cyst. The right kidney is no different than on the prior exam. The liver is homogeneous and not enlarged. The spleen, pancreas, adrenals, aorta, and inferior vena cava show no sign of an acute abnormality. The gallbladder is surgically absent. The hiatal hernia seen previously is again evident and no different. The stomach itself is partially filled with oral contrast and difficult to assess. The images through the thorax show that the lungs are clear and well aerated. There is no sign of an acute abnormality, and there is no parenchymal lung mass identified. The heart is enlarged, and there are coronary artery calcifications evident. The heart is stable when compared to the prior study. The aorta and the pulmonary arteries are unchanged when compared to the prior exam. There is no mediastinal or hilar adenopathy. The thyroid gland is generally unremarkable. The bone window show no evidence for a fracture or for a destructive lesion. IMPRESSION: 1. The appearance of the chest, abdomen, and pelvis is stable when compared to the prior exam. No new abnormality has developed. In particular, there is no sign of metastatic disease related to the patient's diagnosis of endometrial carcinoma. 2. The small 5 mm low-density lesion involving the left kidney seen previously appears stable. Most likely, this is a benign process such as a cyst. 3. There is cardiomegaly and coronary artery disease. 4. The gallbladder and uterus are surgically absent. Dictated by: Dictated on workstation # [id number]
== END ==
LOC: RAD 13:01
PROVIDERS: ATTEND Internal Medicine Hematology & Oncology
DX: C54.1 Malignant neoplasm of endometrium (principal); N28.9 Disorder of kidney and ureter, unspecified; Z90.49 Acquired absence of other specified parts of digestive tract; Z90.711 Acquired absence of uterus with remaining cervical stump
CPT/HCPCS: 71260; 74177

== ENCOUNTER 2017-06-05 13:58 | Outpatient (RCR) | payer MEDICARE ==
[~2017-06-05 13:58] MED LIST changes: -BARIUM SUSPENSION 2.1% (VANILLA SILQ) 450 ML PO ONE; -BENA10TA2 PO; +BENA10TA7 PO; -CATHETER FLUSH 10 ML SYR IV PRN; -IOHEXOL 350 MG/ML 100 ML (OMNIPAQUE 350) VIAL IV ONE; -NS 250 ML (IVPB) BAG IV ONE
[2017-07-21] MEDS ORDERED: NITR100C PO (20:31)
== END 2017-09-03 | disposition home or self-care (01) ==
LOC: ONC 13:58
PROVIDERS: ATTEND Internal Medicine Hematology & Oncology
DX: C54.1 Malignant neoplasm of endometrium (principal); I48.91 Unspecified atrial fibrillation; I25.10 Atherosclerotic heart disease of native coronary artery without angina pectoris; I10 Essential (primary) hypertension; E66.9 Obesity, unspecified; Z68.30 Body mass index [BMI] 30.0-30.9, adult; Z90.710 Acquired absence of both cervix and uterus; Z79.82 Long term (current) use of aspirin; Z79.899 Other long term (current) drug therapy
CPT/HCPCS: 99213

== ENCOUNTER 2017-07-21 19:29 | Emergency (ER) | payer MEDICARE ==
[~2017-07-21] VITALS: Ht 157.5 cm; Wt 79.4 kg
[~2017-07-21 19:29] MED LIST changes: +BENA10TA2 PO; -BENA10TA7 PO
--- NOTE | 2017-07-21 19:50 | ED Fall/Injury ---
General Stated Complaint: FELL,BACK PAIN Source: patient, other (friend) Exam Limitations: no limitations History of Present Illness Date Seen by Provider: July 21, 2017 Time Seen by Provider: 19:36 Initial Comments The patient presents to the ER by private conveyance with a chief complaint that she had a fall approximately 1-1/2 hours ago. She was getting into her bathtub and fell landing her right ribs and side against the wall that time. She has never had a fall before. She does not have any dysuria, imbalance, mental fogginess. She denies that she lost consciousness or struck her head. She took Tylenol and about an hour prior that she had taken her daily 325 mg aspirin. She says the pain is more than what she is used to and she is concerned she might a cracked a rib she wanted checked out. Allergies and Home Medications Allergies Coded Allergies: Rmwftqx-Yxc-Jwm Reductase Inhibitor (Verified Allergy, Intermediate, MUSCLE WEAKNESS, 05/01/16) niacin (Verified Allergy, Unknown, FLUSHED/ALMOST PASSED, 05/01/16) Home Medications Aspirin 325 Mg Tablet, 325 MG PO DAILY, (Reported) Benazepril HCl 10 Mg Tablet, 10 MG PO DAILY, (Reported) Cholecalciferol (Vitamin D3) 1,000 Unit Tablet, 1,000 UNIT PO DAILY, (Reported) Hydrocodone Bit/Acetaminophen 1 Each Tablet, 1-2 EACH PO Q6H Prescribed by: CELIO AUSTIN on 11/23/16 1352 Metoprolol Succinate 25 Mg Tab.er.24h, 25 MG PO HS, (Reported) Multivitamin 1 Each Tab.chew, 1 EACH PO BID, (Reported) Patient Home Medication List Home Medication List Reviewed: Yes Review of Systems Constitutional: No chills, No diaphoresis Eyes: Denies Blindness, Denies Blurred Vision Ears, Nose, Mouth, Throat: denies ear pain, denies ear discharge, denies nose pain, denies nose discharge Respiratory: No cough, No phlegm, No short of breath, No wheezing Cardiovascular: chest pain (right lower ribs and right flank); No Hx of Intervention, No palpitations Gastrointestinal: abdominal pain (and right flank); No constipation, No diarrhea, No nausea, No vomiting Genitourinary: No discharge, No dysuria Musculoskeletal: No neck pain; other (and right rib pain) Skin: No pruritus, No rash; other (negative for ecchymoses) Psychiatric/Neurological: Denies Headache, Denies Numbness, Denies Paresthesia Past Ngdlnhe-Nxlqdv-Dkukiv Hx Patient Social History Alcohol Use: Denies Use Recreational Drug Use: No Smoking Status: Never a Smoker Recent Hopitalizations: No Immunizations Up To Date Date of Pneumonia Vaccine: Dec 06, 2015 Date of Influenza Vaccine: Nov 25, 2016 Seasonal Allergies Seasonal Allergies: No Past Medical History Gallbladder, Hysterectomy, Oophorectomy Atrial Fibrillation, Heart Attack, Hypertension Reproductive Disorders: No 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 Sexually Transmitted Disease: No HIV/AIDS: No Loss of Vision: Bilateral Hearing Impairment: Denies Did You Recieve Any Treatments: Yes What Type of Treatment Did You: Surgical Intervention Adverse Reaction/Blood Tranf: No (N/A) Physical Exam Vital Signs Vital Signs - First Documented 07/21/17 19:33 Temp 97.9 Pulse 85 Resp 20 B/P (MAP) 184/97 (126) Pulse Ox 96 O2 Delivery Room Air Capillary Refill : General Appearance: WD/WN, no apparent distress HEENT: PERRL/EOMI, normal ENT inspection, TMs normal, pharynx normal Neck: non-tender, full range of motion, supple, normal inspection Cardiovascular: normal peripheral pulses, regular rate, rhythm Respiratory: lungs clear, normal breath sounds, no respiratory distress, no accessory muscle use, other (tenderness to right ribs) Peripheral Pulses: 2+ Radial Pulses (R), 2+ Radial Pulses (L) Gastrointestinal: normal bowel sounds, soft, tenderness (right upper quadrant) Back: normal inspection, no CVA tenderness, no vertebral tenderness Extremities: normal range of motion, non-tender, normal inspection Neurologic/Psychiatric: alert, normal mood/affect, oriented x 3 Skin: normal color, warm/dry Lymphatic: no adenopathy Jed Coma Score Best Eye Response: (4) Open Spontaneously Best Verbal Response: (5) Oriented Best Motor Response: (6) Obeys Commands Jed Total: 15 Progress/Results/Core Measures Results/Orders Lab Results Laboratory Tests Test 07/21/17 19:46 Range/Units Urine Color YELLOW Urine Clarity CLEAR Urine pH 5 5-9 Urine Specific [place] 1.025 H 1.016-1.022 Urine Protein 2+ H NEGATIVE Urine Glucose (UA) NEGATIVE NEGATIVE Urine Ketones NEGATIVE NEGATIVE Urine Nitrite NEGATIVE NEGATIVE Urine Bilirubin NEGATIVE NEGATIVE Urine Urobilinogen NORMAL NORMAL MG/DL Urine Leukocyte Esterase 3+ H NEGATIVE Urine RBC (Auto) NEGATIVE NEGATIVE Urine RBC NONE /HPF Urine WBC 25-50 H /HPF Urine Squamous Epithelial Cells 2-5 /HPF Urine Crystals NONE /LPF Urine Bacteria FEW H /HPF Urine Casts NONE /LPF Urine Mucus LARGE H /LPF Urine Culture Indicated YES My Orders Orders - BRENT DIEZ Ibuprofen Tablet (Motrin Tablet) (07/21/17 19:45) Ua Culture If Indicated (07/21/17 19:43) Chest Pa/Lat (2 View) (07/21/17 19:43) Urine Culture (07/21/17 19:46) Medications Given in ED Current Medications Medications Dose Ordered Sig/Juan Carlos Route Start Time Stop Time Status Last Admin Dose Admin Ibuprofen 800 mg ONCE ONCE PO 07/21/17 19:45 07/21/17 19:46 DC 07/21/17 19:51 800 MG Vital Signs/I&O 07/21/17 19:33 Temp 97.9 Pulse 85 Resp 20 B/P (MAP) 184/97 (126) Pulse Ox 96 O2 Delivery Room Air Progress Progress Note : Time: 19:47 Progress Note We have discussed the risks benefits and alternatives to doing CT imaging of her head and the patient would prefer just to do observation. We have discussed the increased risk by being on aspirin and age over 65. We'll obtain 2 view chest x-ray to evaluate her ribs as well as we have offered her pain medicine in addition to her Tylenol. She would prefer ibuprofen of all the choices we gave her. We will obtain urinalysis to evaluate her genitourinary system make sure there is no chance of a bruised, broken kidney. Diagnostic Imaging Diagonstic Imaging: Xray Plain Films/CT/US/NM/MRI: chest (2v) Comments No acute osseous abdomen mildly's. No acute cardiopulmonary processes noted. NAME: RYLAND BARRAGAN [facility] MED REC#: [id number] PT STATUS: REG ER : 1935 PHYSICIAN: BRENT DIEZ MD ADMIT DATE: 07/21/17/ER Draft Date of Exam:07/21/17 CHEST PA/LAT (2 VIEW) INDICATION: Fell and hit the right side of the chest EXAMINATION: PA and lateral views of the chest. FINDINGS: The heart size and vascularity are normal. Lungs are clear. There is no effusion. There is no acute bony abnormality. IMPRESSION: No acute abnormality is seen. There is no change from 11/15/2016. Dictated on workstation # [id number] Dict: 07/21/172001 Trans: 07/21/172005 [facility] [id number] Interpreted by: BLAISE HA MD Electronically signed by: Reviewed: Reviewed by Me Departure Impression Primary Impression: Fall Qualified Codes: W19.XXXA - Unspecified fall, initial encounter Additional Impressions: UTI (urinary tract infection) Qualified Codes: N30.00 - Acute cystitis without hematuria Rib pain on right side Disposition: HOME, SELF-CARE Condition: Stable Departure-Patient Inst. Decision time for Depature: 20:18 Referrals: KADIE AYERS MD (PCP/Family) Primary Care Physician Patient Instructions: Bruised Rib (DC), How to Do Kegel Exercises Add. Discharge Instructions: Apply ice to your right ribs for 20 minutes every 4 hours for the first 3 days. Use 1000 mg of Tylenol/acetaminophen every 8 hours as needed for pain. You can also use 800 mg of ibuprofen every 8 hours as needed for pain. Heating pads and distraction may also be useful. For the next week you should use the incentive' s spirometer every 4 hours by inhaling through it 10 times as demonstrated. If your pain gets worse or you begin to have a productive cough, fevers or chills or other worrisome symptoms you should present to your doctor. 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 Drink plenty of fluids. BRENT DIEZ July 21, 2017 19:50
[2017-07-21] MEDS: IBUPROFEN 800 MG (MOTRIN) TAB PO ONE (19:51)
[2017-07-21 20:01] LABS: BILIRUBIN,URINE NEGATIVE (NEGATIVE); GLUCOSE, URINE (UA) NEGATIVE (NEGATIVE); KETONES,URINE NEGATIVE (NEGATIVE); LEUKOCYTE ESTERASE ,URINE 3+ (NEGATIVE); NITRITE,URINE NEGATIVE (NEGATIVE); PH,URINE 5 (5-9); PROTEIN,URINE 2+ (NEGATIVE); UROBILINOGEN,URINE NORMAL (NORMAL)
[2017-07-21 20:02] LABS: BACTERIA,URINE FEW /HPF; CLARITY,URINE CLEAR; COLOR,URINE YELLOW; WBC,URINE 25-50 /HPF
--- NOTE | 2017-07-21 20:07 | Diagnostic Imaging Report ---
INDICATION: Fell and hit the right side of the chest EXAMINATION: PA and lateral views of the chest. FINDINGS: The heart size and vascularity are normal. Lungs are clear. There is no effusion. There is no acute bony abnormality. IMPRESSION: No acute abnormality is seen. There is no change from 11/15/2016. Dictated by: Dictated on workstation # [id number]
[2017-07-21] MEDS ORDERED: NITR100C PO (20:31)
[2017-07-21 20:32] VITALS: BP 177/90
== END 2017-07-21 20:32 | disposition home or self-care (01) ==
LOC: EDUNIT# 19:29 → ER 19:30
DX: R07.81 Pleurodynia (principal); N39.0 Urinary tract infection, site not specified; R40.2142 Coma scale, eyes open, spontaneous, at arrival to emergency department; R40.2252 Coma scale, best verbal response, oriented, at arrival to emergency department; R40.2362 Coma scale, best motor response, obeys commands, at arrival to emergency department; I48.91 Unspecified atrial fibrillation; I25.2 Old myocardial infarction; I10 Essential (primary) hypertension; Z90.710 Acquired absence of both cervix and uterus; Z88.8 Allergy status to other drugs, medicaments and biological substances; Z88.1 Allergy status to other antibiotic agents; Z79.82 Long term (current) use of aspirin; W18.2XXA Fall in (into) shower or empty bathtub, initial encounter
CPT/HCPCS: 71046; 81000; 87088; 94664

== ENCOUNTER → 2017-09-12 | Outpatient (CLI) | payer MEDICARE ==
[~2017-09-12] MED LIST changes: -BENA10TA2 PO; +BENA10TA7 PO; +NITR100C PO
--- NOTE | 2017-09-12 16:49 | Diagnostic Imaging Report ---
INDICATION: Routine screening. COMPARISON: 06/07/2016 and 03/02/2015. TECHNIQUE: 2D and 3D bilateral screening mammography was performed with CAD. FINDINGS: Both breasts remain heterogeneously dense, limiting the sensitivity of mammography. The parenchymal pattern is stable. There are benign calcifications bilaterally. No mass or malignant appearing microcalcifications are seen. The axillae are unremarkable. IMPRESSION: No mammographic features suspicious for malignancy are identified. ACR BI-RADS Category 2: Benign findings. Result letter will be mailed to the patient. Note: At least 10% of breast cancer is not imaged by mammography. Dictated by: Dictated on workstation # [id number]
== END ==
LOC: RAD 13:59
PROVIDERS: ATTEND Obstetrics & Gynecology
DX: Z12.31 Encounter for screening mammogram for malignant neoplasm of breast (principal)
CPT/HCPCS: 77067

== ENCOUNTER → 2017-12-20 | Outpatient (CLI) | payer MEDICARE ==
[~2017-12-20] MED LIST changes: +IOHEXOL 350 MG/ML 100 ML (OMNIPAQUE 350) VIAL IV ONE; +NS 250 ML (IVPB) BAG IV ONE
--- NOTE | 2017-12-20 11:43 | Diagnostic Imaging Report ---
PROCEDURE: CT chest, abdomen, and pelvis with contrast. TECHNIQUE: Multiple contiguous axial images were obtained through the chest, abdomen, and pelvis after the administration of intravenous contrast. INDICATION: Endometrial carcinoma with elevated tumor markers. COMPARISON: Comparison is made with prior CT from 05/31/2017. FINDINGS: CT chest: No axillary lymphadenopathy is seen. No definite mediastinal or hilar lymphadenopathy is identified. Coronary arterial opacifications are present. No pericardial or pleural fluid is detected. No parenchymal mass, nodule or infiltrate is seen. IMPRESSION: Stable CT chest without evidence of thoracic lymphadenopathy or pulmonary metastatic disease. CT abdomen and pelvis: The intrahepatic and extrahepatic bile ducts remain prominent. No definite obstructing lesion is seen. Gallbladder is surgically absent. No discrete liver mass is detected. The pancreas and spleen appear stable. No adrenal mass is identified. The kidneys are unremarkable. Aorta is calcified but not aneurysmal. No central, retroperitoneal or mesenteric lymphadenopathy is detected. There appear to be post surgical changes of right hemicolectomy. Bowel loops are normal caliber. There is no ascites. No inguinal or iliac lymphadenopathy is identified. The uterus is surgically absent. The bladder is unremarkable. IMPRESSION: Overall stable CT of the abdomen and pelvis when compared with prior CT from 05/31/2017. No abdominal or pelvic lymphadenopathy or evidence of metastatic disease is identified. Dictated by: Dictated on workstation # [id number]
== END ==
LOC: RAD 10:02
PROVIDERS: ATTEND Internal Medicine Hematology & Oncology
DX: C54.1 Malignant neoplasm of endometrium (principal)
CPT/HCPCS: 71260; 74177

== ENCOUNTER 2017-12-26 13:36 | Outpatient (RCR) | payer MEDICARE ==
[2017-11-26 09:50] LABS: BASOPHILS % (AUTO) 1 % (0-10); EOSINOPHILS # (AUTO) 0.2 10^3/uL (0.0-0.3); EOSINOPHILS % (AUTO) 3 % (0-10); HEMATOCRIT 39 % (35-52); HEMOGLOBIN 13.1 G/DL (11.5-16.0); LYMPHOCYTES # (AUTO) 1.2 X 10^3 (1.0-4.0); LYMPHOCYTES % (AUTO) 19 % (12-44); MEAN CORPUSCULAR HEMOGLOBIN 31 PG (25-34); MEAN CORPUSCULAR HGB CONC 34 G/DL (32-36); MEAN CORPUSCULAR VOLUME 92 FL (80-99); MEAN PLATELET VOLUME 10.2 FL (7.4-10.4); MONOCYTES # (AUTO) 0.6 X 10^3 (0.0-1.0); MONOCYTES % (AUTO) 9 % (0-12); NEUTROPHILS # (AUTO) 4.2 X 10^3 (1.8-7.8); NEUTROPHILS % (AUTO) 68 % (42-75); PLATELET COUNT 274 10^3/uL (130-400); RED BLOOD COUNT 4.25 10^6/uL (4.35-5.85); RED CELL DISTRIBUTION WIDTH 13.6 % (10.0-14.5); WHITE BLOOD COUNT 6.1 10^3/uL (4.3-11.0)
[2017-11-26 10:14] LABS: ALBUMIN 4.2 GM/DL (3.2-4.5); BILIRUBIN,TOTAL 0.5 MG/DL (0.1-1.0); CALCIUM 9.6 MG/DL (8.5-10.1); CREATININE SERUM 0.96 MG/DL (0.60-1.30); TOTAL PROTEIN 7.2 GM/DL (6.4-8.2)
[2017-12-20 10:00] LABS: BASOPHILS % (AUTO) 1 % (0-10); EOSINOPHILS # (AUTO) 0.2 10^3/uL (0.0-0.3); EOSINOPHILS % (AUTO) 4 % (0-10); HEMATOCRIT 40 % (35-52); LYMPHOCYTES # (AUTO) 1.4 X 10^3 (1.0-4.0); LYMPHOCYTES % (AUTO) 22 % (12-44); MEAN CORPUSCULAR HEMOGLOBIN 30 PG (25-34); MEAN CORPUSCULAR HGB CONC 32 G/DL (32-36); MEAN CORPUSCULAR VOLUME 92 FL (80-99); MEAN PLATELET VOLUME 10.5 FL (7.4-10.4); MONOCYTES # (AUTO) 0.6 X 10^3 (0.0-1.0); MONOCYTES % (AUTO) 10 % (0-12); NEUTROPHILS # (AUTO) 4.1 X 10^3 (1.8-7.8); NEUTROPHILS % (AUTO) 64 % (42-75); PLATELET COUNT 233 10^3/uL (130-400); RED BLOOD COUNT 4.37 10^6/uL (4.35-5.85); RED CELL DISTRIBUTION WIDTH 12.9 % (10.0-14.5); WHITE BLOOD COUNT 6.3 10^3/uL (4.3-11.0)
[2017-12-20 10:21] LABS: ALBUMIN 4.3 GM/DL (3.2-4.5); CALCIUM 9.7 MG/DL (8.5-10.1); CREATININE SERUM 1.05 MG/DL (0.60-1.30); POTASSIUM 4.2 MMOL/L (3.6-5.0); TOTAL PROTEIN 7.3 GM/DL (6.4-8.2)
[~2017-12-26 13:36] MED LIST changes: -IOHEXOL 350 MG/ML 100 ML (OMNIPAQUE 350) VIAL IV ONE; -NS 250 ML (IVPB) BAG IV ONE
== END 2018-02-24 | disposition home or self-care (01) ==
LOC: ONC 13:36
PROVIDERS: ATTEND Internal Medicine Hematology & Oncology
DX: C54.1 Malignant neoplasm of endometrium (principal); I48.91 Unspecified atrial fibrillation; I25.10 Atherosclerotic heart disease of native coronary artery without angina pectoris; I10 Essential (primary) hypertension; N28.9 Disorder of kidney and ureter, unspecified; E66.9 Obesity, unspecified; Z68.30 Body mass index [BMI] 30.0-30.9, adult; Z90.710 Acquired absence of both cervix and uterus; Z79.82 Long term (current) use of aspirin; Z79.899 Other long term (current) drug therapy; Z90.49 Acquired absence of other specified parts of digestive tract; Z90.711 Acquired absence of uterus with remaining cervical stump
CPT/HCPCS: 36415; 80053; 85025; 86304; 99213

== ENCOUNTER 2018-06-25 10:26 | Outpatient (RCR) | payer MEDICARE ==
[2018-06-18 10:52] LABS: BASOPHILS % (AUTO) 0 % (0-10); EOSINOPHILS # (AUTO) 0.2 10^3/uL (0.0-0.3); EOSINOPHILS % (AUTO) 3 % (0-10); HEMATOCRIT 40 % (35-52); LYMPHOCYTES # (AUTO) 1.2 X 10^3 (1.0-4.0); LYMPHOCYTES % (AUTO) 19 % (12-44); MEAN CORPUSCULAR HEMOGLOBIN 30 PG (25-34); MEAN CORPUSCULAR HGB CONC 33 G/DL (32-36); MEAN CORPUSCULAR VOLUME 91 FL (80-99); MEAN PLATELET VOLUME 10.6 FL (7.4-10.4); MONOCYTES # (AUTO) 0.5 X 10^3 (0.0-1.0); MONOCYTES % (AUTO) 8 % (0-12); NEUTROPHILS # (AUTO) 4.6 X 10^3 (1.8-7.8); NEUTROPHILS % (AUTO) 70 % (42-75); PLATELET COUNT 227 10^3/uL (130-400); RED CELL DISTRIBUTION WIDTH 13.6 % (10.0-14.5); WHITE BLOOD COUNT 6.5 10^3/uL (4.3-11.0)
[2018-06-18 11:17] LABS: BILIRUBIN,TOTAL 0.6 MG/DL (0.1-1.0); CALCIUM 9.8 MG/DL (8.5-10.1); CREATININE SERUM 0.98 MG/DL (0.60-1.30); POTASSIUM 3.6 MMOL/L (3.6-5.0); TOTAL PROTEIN 6.8 GM/DL (6.4-8.2)
== END 2018-09-16 | disposition home or self-care (01) ==
LOC: ONC 10:26
PROVIDERS: ATTEND Internal Medicine Hematology & Oncology
DX: C54.1 Malignant neoplasm of endometrium (principal); I48.91 Unspecified atrial fibrillation; I25.10 Atherosclerotic heart disease of native coronary artery without angina pectoris; I10 Essential (primary) hypertension; N28.9 Disorder of kidney and ureter, unspecified; E66.9 Obesity, unspecified; Z68.30 Body mass index [BMI] 30.0-30.9, adult; Z90.710 Acquired absence of both cervix and uterus; Z79.82 Long term (current) use of aspirin; Z79.899 Other long term (current) drug therapy; Z90.49 Acquired absence of other specified parts of digestive tract; Z90.711 Acquired absence of uterus with remaining cervical stump
CPT/HCPCS: 36415; 80053; 85025; 86304; 99213

== ENCOUNTER → 2018-10-24 | Outpatient (CLI) | payer MEDICARE ==
[~2018-10-24] MED LIST changes: -BENA10TA7 PO; +BENA10TA9 PO
--- NOTE | 2018-10-25 20:28 | Diagnostic Imaging Report ---
Digital mammogram bilateral screening with 3 D tomosynthesis and CAD This study was compared to the prior exams of 09/12/2017, 06/07/2016 and 03/02/15. At this time, there are no current complaints. The current study was also evaluated with a Computer Aided Detection (CAD) system. 3-D tomosynthesis was also performed and reviewed. FINDINGS: The fibroglandular tissue in both breasts is heterogeneously dense. This does limit the sensitivity of this exam. Overall, there does not appear to have been any significant change when compared to the prior study. No primary or secondary sign of malignancy is noted. IMPRESSION: There is no radiographic evidence for malignancy. ACR BI-RADS Category 1: Negative. Result letter will be mailed to the patient. Note: At least 10% of breast cancer is not imaged by mammography. Dictated by: Dictated on workstation # [id number]
== END ==
LOC: RAD 13:39
PROVIDERS: ATTEND Obstetrics & Gynecology
DX: Z12.31 Encounter for screening mammogram for malignant neoplasm of breast (principal)
CPT/HCPCS: 77067

== ENCOUNTER 2018-12-26 09:34 | Outpatient (RCR) | payer MEDICARE ==
[2018-12-17 11:04] LABS: BASOPHILS % (AUTO) 1 % (0-10); EOSINOPHILS # (AUTO) 0.2 10^3/uL (0.0-0.3); EOSINOPHILS % (AUTO) 3 % (0-10); HEMATOCRIT 41 % (35-52); HEMOGLOBIN 13.2 G/DL (11.5-16.0); LYMPHOCYTES # (AUTO) 1.1 X 10^3 (1.0-4.0); LYMPHOCYTES % (AUTO) 18 % (12-44); MEAN CORPUSCULAR HEMOGLOBIN 30 PG (25-34); MEAN CORPUSCULAR HGB CONC 33 G/DL (32-36); MEAN CORPUSCULAR VOLUME 91 FL (80-99); MEAN PLATELET VOLUME 9.9 FL (7.4-10.4); MONOCYTES # (AUTO) 0.6 X 10^3 (0.0-1.0); MONOCYTES % (AUTO) 10 % (0-12); NEUTROPHILS # (AUTO) 4.2 X 10^3 (1.8-7.8); NEUTROPHILS % (AUTO) 69 % (42-75); PLATELET COUNT 228 10^3/uL (130-400); WHITE BLOOD COUNT 6.1 10^3/uL (4.3-11.0)
[2018-12-17 11:22] LABS: ALBUMIN 4.1 GM/DL (3.2-4.5); BILIRUBIN,TOTAL 0.4 MG/DL (0.1-1.0); CALCIUM 9.5 MG/DL (8.5-10.1); CREATININE SERUM 1.05 MG/DL (0.60-1.30); TOTAL PROTEIN 7.1 GM/DL (6.4-8.2)
[~2018-12-26 09:34] MED LIST changes: -METO-387 PO; +MTP25TSR PO
== END 2019-03-17 | disposition home or self-care (01) ==
LOC: ONC 09:34
PROVIDERS: ATTEND Internal Medicine Hematology & Oncology
DX: C54.1 Malignant neoplasm of endometrium (principal); I25.10 Atherosclerotic heart disease of native coronary artery without angina pectoris; I10 Essential (primary) hypertension; R32 Unspecified urinary incontinence; D50.9 Iron deficiency anemia, unspecified; Z90.710 Acquired absence of both cervix and uterus; Z85.038 Personal history of other malignant neoplasm of large intestine; Z79.899 Other long term (current) drug therapy; Z86.79 Personal history of other diseases of the circulatory system; Z87.448 Personal history of other diseases of urinary system; Z90.49 Acquired absence of other specified parts of digestive tract; Z98.890 Other specified postprocedural states
CPT/HCPCS: 36415; 80053; 85025; 86304; 99213

== ENCOUNTER 2019-12-02 11:17 | Emergency (ER) | payer MEDICARE ==
[~2019-12-02] VITALS: Ht 157 cm; Wt 77.0 kg
[~2019-12-02 11:17] MED LIST changes: +BENA10TA66 PO; -BENA10TA9 PO
[2019-12-02] MEDS ORDERED: HYDROCHLOROTHIAZIDE 25 MG (HCTZ) TAB PO ONE (12:00)
[2019-12-02] MEDS ORDERED: lisINopril 10 MG (PRINIVIL) TABLET PO ONE (12:00)
[2019-12-02] MEDS ORDERED: meTOproloL SUCCINATE 50 MG (TOPROL XL) TAB PO SCH (12:00)
[2019-12-02 12:12] LABS: MAGNESIUM 1.8 MG/DL (1.6-2.4)
--- NOTE | 2019-12-02 12:16 | ED Cardiac General ---
History of Present Illness General Chief Complaint: Cardiac/General Problems Stated Complaint: BP ISSUES Nursing Triage Note: PT ARRIVERS TO ER FROM DR FRANCO TODAY WITH HIGH BLOOD PRESSURE. DR FRANCO DID NOT SEND HER HERE, BUT DID NOTE HER HIGH BLOOD PRESSURE. SHE CALLED DR GARCIA HER CANCER DCOTOR FOR HER BLOOD WORK FOR NEXT WEEKS APPOINTMENT. THEY TOLD HER TO COME TO THE ER FOR HER BLOOD PRESSURE. SHE HAS RECENTLY SEEN DR ARANGO FOR THE FIRST TIME AND SHE SAID HE IS PUTTING HER ON A NEW BP MED, BUT MIKE HAS NOT HAD THE MEDICATION SENT TO HER YET. SHE IS STILL TAKING HER CURRENT METOPROLOL (SHAYAN BAEZ MED STUDENT) Source: patient, old records Exam Limitations: no limitations (SENIA DOVER MD) History of Present Illness Date Seen by Provider: Dec 02, 2019 Time Seen by Provider: 11:40 Initial Comments Sherine Russell is a 83 yo F with history of IA, 3x stent placement 2016 and endometrial cancer in remission s/p total hysterectomy who presents with complaint of hypertension. The patient notes slight LLE edema over the past month or two for which she had an US showing no DVT or blockage. She reports she was seen for the first time by the conservation scientist Dr. Arango 5 days ago, 11/27/19 and he found her BP elevated. Per the pt's visit documents, 200/[address] Arango prescribed 20mg benazepril, 100mg metoprolol, and added 25mg of HCTZ and 5mg of eliquis. The patient states she will get these new medications by mail later today and has been continuing her former regimen of 50mg metoprolol and 10mg benazepril. She states she was rushing to medical appointments this morning. Dr. Franco her OB noted elevated BP and when having labs drawn for her upcoming oncology appointment the nurse found BP 187/102 and referred her to the ER. The patient denies headaches, vision changes, fever, chills, SOB, chest pain, abdominal pain, and nausea. 1 to 2 soft drinks per day but denies herbal supplements, decongestant use, and other caffeine intake. (SHAYAN BAEZ MED STUDENT) Allergies and Home Medications Allergies Coded Allergies: Vdpecqi-Hdf-Kue Reductase Inhibitor (Verified Allergy, Intermediate, MUSCLE WEAKNESS, 05/01/16) niacin (Verified Allergy, Unknown, FLUSHED/ALMOST PASSED, 05/01/16) Home Medications Aspirin 325 Mg Tablet, 325 MG PO DAILY, (Reported) Benazepril HCl 10 Mg Tablet, 10 MG PO DAILY, (Reported) Cholecalciferol (Vitamin D3) 1,000 Unit Tablet, 1,000 UNIT PO DAILY, (Reported) Hydrocodone Bit/Acetaminophen 1 Each Tablet, 1-2 EACH PO Q6H Prescribed by: CELIO AUSTIN on 11/23/16 1352 Metoprolol Succinate 25 Mg Tab.er.24h, 25 MG PO HS, (Reported) Multivitamin 1 Each Tab.chew, 1 EACH PO BID, (Reported) Nitrofurantoin Macrocrystal 100 Mg Capsule, 100 MG PO BID Prescribed by: BRENT DIEZ on 07/21/172030 Patient Home Medication List Home Medication List Reviewed: Yes (SENIA DOVER MD) Review of Systems Review of Systems Constitutional: No chills, No fever EENTM: No Blurred Vision, No Double Vision, No Eye Pain Respiratory: Denies Cough, Denies Shortness of Air Cardiovascular: Denies Chest Pain; Edema (slight LLE) Gastrointestinal: Denies Abdomen Distended, Denies Abdominal Pain, Denies Nausea Skin: No change in color, No rash Psychiatric/Neurological: Denies Headache (SHAYAN BAEZ STUDENT) Past Njovfej-Wozxyr-Mezsfl Hx Past Med/Social Hx: Reviewed Nursing Past Med/Soc Hx (SENIA DOVER MD) Patient Social History Alcohol Use: Rarely Uses Smoking Status: Never a Smoker 2nd Hand Smoke Exposure: No Recent Foreign Travel: No Contact w/Someone Who Travel: No Recent Infectious Disease Expo: No Recent Hopitalizations: No (SHAYAN BAEZ STUDENT) Immunizations Up To Date Date of Pneumonia Vaccine: Dec 06, 2015 Date of Influenza Vaccine: Nov 25, 2016 (SHAYAN BAEZ) Seasonal Allergies Seasonal Allergies: No (SHAYAN BAEZ) Past Medical History Surgeries: Yes ( BOWEL RESECTION,CATARACTS,VAG.CYSTS,D&C,MELANOMA,BREAST BIOPSIES X6) Gallbladder, Hysterectomy, Oophorectomy Respiratory: No Cardiac: Yes (MITRAL VALVE REGURGITATION, STENTS X3 JUNE 2016) Atrial Fibrillation, Heart Attack, Hypertension Neurological: No Reproductive Disorders: No 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 Sexually Transmitted Disease: No HIV/AIDS: No Genitourinary: No Gastrointestinal: Yes (BOWEL RESECTION) Musculoskeletal: No Endocrine: No HEENT: No Loss of Vision: Bilateral Hearing Impairment: Denies Cancer: Yes (ENDOMETRIAL CA) Did You Recieve Any Treatments: Yes What Type of Treatment Did You: Surgical Intervention Psychosocial: No Integumentary: No Blood Disorders: No Adverse Reaction/Blood Tranf: No (N/A) (SHAYAN BAEZ STUDENT) Physical Exam Vital Signs Vital Signs - First Documented 12/02/19 11:30 Temp 36.0 Pulse 117 Resp 18 B/P (MAP) 168/118 (135) Pulse Ox 97 O2 Delivery Room Air (SENIA DOVER MD) Vital Signs Capillary Refill : Less Than 3 Seconds (SHAYAN BAEZ STUDENT) Height, Weight, BMI Height: 5'2.00" Weight: 175lbs. 0.0oz. [id number]; 31.00 BMI Method:Stated General Appearance: No Apparent Distress, WD/WN, Anxious HEENT: PERRL/EOMI, TMs Normal Respiratory: Lungs Clear, Normal Breath Sounds, No Accessory Muscle Use, No Respiratory Distress Cardiovascular: Regular Rate, Rhythm, No Gallop, No JVD, Normal Peripheral Pulses, Other (1+ LLE edema) Gastrointestinal: Non Tender, Soft Neurologic/Psychiatric: Alert, Oriented x3, Normal Mood/Affect Skin: Normal Color, Warm/Dry (SHAYAN BAEZ STUDENT) Progress/Results/Core Measures Results/Orders Lab Results Laboratory Tests Test 12/02/19 11:02 12/02/19 12:07 Range/Units Magnesium Level 1.8 1.6-2.4 MG/DL Troponin I < 0.028 < 0.028 <0.028 NG/ML B-Type Natriuretic Peptide 220.2 H <100.0 PG/ML TSH [place] Testing 1.42 0.35-4.94 UIU/ML (SENIA DOVER MD) My Orders Orders - SENIA DOVER MD BNP (12/02/19 11:51) Thyroid Analyzer (12/02/19 11:51) Troponin I (12/02/19 11:51) Ed Iv/Invasive Line Start (12/02/19 11:51) Ekg Tracing (12/02/19 11:51) Monitor-Rhythm Ecg Trace Only (12/02/19 11:51) Magnesium (12/02/19 11:51) Lisinopril Tablet (Zestril Tablet) (12/02/19 12:00) Hydrochlorothiazide Cap/Tablet (Hctz Cap (12/02/19 12:00) Metoprolol Succinate (Xl) Tab (Toprol Xl (12/02/19 12:00) Troponin I (12/02/19 12:07) (SENIA DOVER MD) Medications Given in ED Current Medications Medications Dose Ordered Sig/Juan Carlos Route Start Time Stop Time Status Last Admin Dose Admin Hydrochlorothiazide 25 mg ONCE ONCE PO 12/02/19 12:00 12/02/19 12:01 DC 12/02/19 12:20 25 MG Lisinopril 10 mg ONCE ONCE PO 12/02/19 12:00 12/02/19 12:01 DC 12/02/19 12:20 10 MG (SENIA DOVER MD) Vital Signs/I&O 12/02/19 12/02/19 11:30 13:32 Temp 36.0 36.8 Pulse 117 87 Resp 18 17 B/P (MAP) 168/118 (135) 174/105 Pulse Ox 97 99 O2 Delivery Room Air (SENIA DOVER MD) Blood Pressure Mean: 135 Progress Progress Note : Time: 12:15 Progress Note Sherine is a pleasant but anxious 83 yo F who is awaiting medication deliveries to improve her BP management. She was referred to the ER today for elevated blood pressure at her check-up appointments. She presents in stable condition currently without symptoms of organ damage. Afebrile but tachycardic with BP 187/102 here. We will give medications to bring her BP down today and evaluate for ACS with EKG and troponin, possible CHF development with BNP, and thyroid dysfunction with TSH. She has followup with [facility] planned in a month and is expected to begin her new home medications tomorrow morning. She has already had a workup of the left leg swelling with Dr. Hall which included US showing no DVT. -Sylvester Baez, medical student (SHAYAN BAEZ MED STUDENT) Initial ECG Impression Date: Dec 02, 2019 Initial ECG Impression Time: 11:54 Initial ECG Rate: 99 Initial ECG Rhythm: A Fib/Flutter Comment Rate controlled atrial fibrillation with no ST elevation or depression. (SENIA DOVER MD) Departure Impression Primary Impression: Hypertension Qualified Codes: I10 - Essential (primary) hypertension Additional Impression: Anxiety Disposition: 01 HOME, SELF-CARE Condition: Stable Departure-Patient Inst. Decision time for Depature: 13:16 (SENIA DOVER MD) Referrals: KADIE AYERS MD (PCP/Family) Primary Care Physician Patient Instructions: High Blood Pressure in Adults Add. Discharge Instructions: 1. You do not need to make any changes or take any additional medications today. 2. If your new medications arrived, take them as prescribed. Use the new doses of benazepril and metoprolol when the new medication arrives and stop the old benazepril and metoprolol doses. 3. If the new medication does not arrive tomorrow, take 2 benazepril to total 20 mg and 2 metoprolol to total 100 mg. Change these medications to the new medications as prescribed when they arrive. 4. Have your blood pressure checked at Dr. Hall's clinic or Dr. Arango's clinic sometime in the next week. 5. Return to the emergency room if you have worsening symptoms or develop new symptoms such as chest pain, headache, changes in vision, etc. 6. When your Eliquis arrives, use of Eliquis instead of aspirin. Check with Dr. Arango to determine if he wants you to take both Eliquis and aspirin at your follow-up appointment. 7. A copy of this note will be sent to Dr. Hall and to Dr. Arango. All discharge instructions reviewed with patient and/or family. Voiced understanding. This patient was personally interviewed and examined by me along with Sylvester Baez, MS3. I have reviewed his documentation including history, physical, and assessments and concur except were otherwise noted. Patient presents with primary concern about hypertension and was referred here by laboratory staff after noting the hypertension at the time of blood draw. She had her medication dosages changed by Dr. Arango but has not made those changes yet because the medications were sent to a mail-in pharmacy. She anticipates receiving his medications today. The changes were to double her benazepril and metoprolol as well as adding hydrochlorothiazide. She is on samples of Eliquis. She has history of atrial fibrillation and coronary artery disease. Dr. Arango is her primary conservation scientist. Dr. Hall is her primary care provider. She was given benazepril 10 mg, metoprolol 50 mg, and hydrochlorothiazide 25 mg in the ER to reflect the changes made at her cardiology appointment. Labs were added to the labs that she had drawn this morning. They were unremarkable. Patient was advised to get her blood pressure checked in the clinic setting sometime in the next week. See discharge instructions for further discussion. It was noted the patient is quite anxious and also has some difficulty with memory. She did repeat herself often. Early dementia may be a factor. Exam: Gen.: Alert, oriented, anxious Heart: Irregular rhythm, normal rate, no murmur Lungs: Clear to auscultation bilaterally Extremities: Mild edema, left greater than right, nontender Neuropsych: Anxious, no focal deficits, some difficulty with memory and repeats self during discussion Skin: Warm and dry without rashes (SENIA DOVER MD) Copy Copies To 1: TAI ARANGO MD Copies To 2: MONCHO HALL MD, PETER MED STUDENT Dec 02, 2019 12:16 SENIA DOVER MD Dec 02, 2019 13:21
[2019-12-02 12:33] LABS: TSH (THYROID ANALYZER) 1.42 UIU/ML (0.35-4.94)
[2019-12-02 13:32] VITALS: BP 174/105
== END 2019-12-02 13:38 | disposition home or self-care (01) ==
LOC: EDUNIT# 11:17 → ER 11:19
DX: I10 Essential (primary) hypertension (principal); F41.9 Anxiety disorder, unspecified; I25.2 Old myocardial infarction; Z85.42 Personal history of malignant neoplasm of other parts of uterus; Z95.5 Presence of coronary angioplasty implant and graft; Z79.82 Long term (current) use of aspirin; Z88.8 Allergy status to other drugs, medicaments and biological substances
CPT/HCPCS: 36415; 83735; 83880; 84443; 84484; 93005; 93041

== ENCOUNTER → 2019-12-08 | Outpatient (CLI) | payer MEDICARE, OTHER | LOC: CARD 12:00 | PROVIDERS: ATTEND Internal Medicine Cardiovascular Disease | DX: C54.1 Malignant neoplasm of endometrium (principal); I48.0 Paroxysmal atrial fibrillation; E78.2 Mixed hyperlipidemia; I10 Essential (primary) hypertension | CPT/HCPCS: 93306 ==

== ENCOUNTER → 2019-12-17 | Outpatient (CLI) | payer MEDICARE ==
[~2019-12-17] VITALS: Ht 157 cm; Wt 78.0 kg
[~2019-12-17] MED LIST changes: +CATHETER FLUSH 10 ML SYR IV PRN; +REGADENOSON 0.4 MG/5 ML SYR (LEXISCAN) IV ONE
[2019-12-17 09:26] VITALS: BP 151/108
--- NOTE | 2019-12-17 12:35 | Cardiology Stress Test Report ---
Stress Test Report Date of Procedure/Referring: Date of Procedure: Dec 17, 2019 PCP Tai Arango MD Admitting Physician Desiree Felix MD Indications: atrial fibrillation Baseline Heart Rate: 86 Baseline Blood Pressure: Blood Pressure Systolic: 151 Blood Pressure Diastolic: 108 Baseline Vitals Vital Signs Date Time Temp Pulse Resp B/P (MAP) Pulse Ox O2 Delivery O2 Flow Rate FiO2 12/17/19 09:26 86 151/108 (122) 98 Baseline EKG: Baseline EKG: atrial fibrillation, pvc Summary After explaining the procedure to the patient, she signed a consent and then brought to the stress nuclear laboratory. Patient received 0.4 mg Lexiscan for stress test, ECG, heart rate and blood pressure were monitored continuously. Resting and stress dose of radio tracer were injected, imaging was acquired and reviewed in short axis, horizontal long axis and vertical long axis views. TID: 1.07 SSS: 4 SDS: 2 EF: 73 1. Patient tolerated lexiscan well 2. Baseline atrial fibrillation persisted during test 3. Breast attenuation with mild decrease uptake at the anteroapical segment, overall no significant ischemia or infarction 4. Normal left ventricular size with contractility, ejection fraction 73 percent, gated images are unreliable due to underlying atrial fibrillation TAI ARANGO MD Dec 17, 2019 12:34
== END ==
LOC: CARD 07:42
PROVIDERS: ATTEND Internal Medicine Cardiovascular Disease
DX: I48.0 Paroxysmal atrial fibrillation (principal); I10 Essential (primary) hypertension; E78.2 Mixed hyperlipidemia; C54.1 Malignant neoplasm of endometrium
CPT/HCPCS: 78452; 93017; A9502

== ENCOUNTER 2020-01-19 13:41 | Outpatient (RCR) | payer MEDICARE ==
[2019-12-02 11:08] LABS: BASOPHILS % (AUTO) 1 % (0-10); EOSINOPHILS # (AUTO) 0.1 10^3/uL (0.0-0.3); EOSINOPHILS % (AUTO) 2 % (0-10); HEMATOCRIT 39 % (35-52); HEMOGLOBIN 13.2 g/dL (11.5-16.0); LYMPHOCYTES # (AUTO) 0.9 10^3/uL (1.0-4.0); LYMPHOCYTES % (AUTO) 14 % (12-44); MEAN CORPUSCULAR HEMOGLOBIN 31 pg (25-34); MEAN CORPUSCULAR HGB CONC 34 g/dL (32-36); MEAN CORPUSCULAR VOLUME 90 fL (80-99); MEAN PLATELET VOLUME 10.4 fL (9.0-12.2); MONOCYTES # (AUTO) 0.5 10^3/uL (0.0-1.0); MONOCYTES % (AUTO) 8 % (0-12); NEUTROPHILS # (AUTO) 4.9 10^3/uL (1.8-7.8); NEUTROPHILS % (AUTO) 76 % (42-75); PLATELET COUNT 232 10^3/uL (130-400); WHITE BLOOD COUNT 6.5 10^3/uL (4.3-11.0)
[2019-12-02 11:25] LABS: ALBUMIN 4.1 GM/DL (3.2-4.5); CALCIUM 9.2 MG/DL (8.5-10.1); CREATININE SERUM 0.99 MG/DL (0.60-1.30); POTASSIUM 3.2 MMOL/L (3.6-5.0)
[2020-01-12 13:42] LABS: BASOPHILS % (AUTO) 1 % (0-10); EOSINOPHILS # (AUTO) 0.1 10^3/uL (0.0-0.3); EOSINOPHILS % (AUTO) 2 % (0-10); HEMATOCRIT 41 % (35-52); HEMOGLOBIN 13.7 g/dL (11.5-16.0); LYMPHOCYTES # (AUTO) 1.4 10^3/uL (1.0-4.0); LYMPHOCYTES % (AUTO) 19 % (12-44); MEAN CORPUSCULAR HEMOGLOBIN 31 pg (25-34); MEAN CORPUSCULAR HGB CONC 33 g/dL (32-36); MEAN CORPUSCULAR VOLUME 92 fL (80-99); MEAN PLATELET VOLUME 10.5 fL (9.0-12.2); MONOCYTES # (AUTO) 0.6 10^3/uL (0.0-1.0); MONOCYTES % (AUTO) 9 % (0-12); NEUTROPHILS % (AUTO) 70 % (42-75); PLATELET COUNT 242 10^3/uL (130-400); WHITE BLOOD COUNT 7.2 10^3/uL (4.3-11.0)
[2020-01-12 14:07] LABS: ALBUMIN 4.1 GM/DL (3.2-4.5); BILIRUBIN,TOTAL 0.6 MG/DL (0.1-1.0); CALCIUM 9.4 MG/DL (8.5-10.1); CREATININE SERUM 1.34 MG/DL (0.60-1.30); POTASSIUM 3.5 MMOL/L (3.6-5.0); TOTAL PROTEIN 7.3 GM/DL (6.4-8.2)
[~2020-01-19 13:41] MED LIST changes: -CATHETER FLUSH 10 ML SYR IV PRN; -REGADENOSON 0.4 MG/5 ML SYR (LEXISCAN) IV ONE
== END 2020-03-01 | disposition home or self-care (01) ==
LOC: ONC 13:41
PROVIDERS: ATTEND Internal Medicine Hematology & Oncology
DX: C54.1 Malignant neoplasm of endometrium (principal); I10 Essential (primary) hypertension; I25.10 Atherosclerotic heart disease of native coronary artery without angina pectoris; D63.0 Anemia in neoplastic disease; R32 Unspecified urinary incontinence; Z90.710 Acquired absence of both cervix and uterus; Z98.890 Other specified postprocedural states; Z90.49 Acquired absence of other specified parts of digestive tract; Z82.49 Family history of ischemic heart disease and other diseases of the circulatory system; Z80.8 Family history of malignant neoplasm of other organs or systems
CPT/HCPCS: 80053 ×2; 85025 ×2; 86304 ×2; G0463; 99213

== ENCOUNTER 2020-09-15 10:30 | Emergency (ER) | payer MEDICARE ==
[~2020-09-15] VITALS: Ht 157 cm; Wt 75.0 kg
--- NOTE | 2020-09-15 11:29 | ED Lower Extremity ---
General Chief Complaint: Lower Extremity Stated Complaint: L LEG CELLULITIS, CONFUSION Nursing Triage Note: AMB TO ED ACCOMPIED BY DR ZAVALA NURSE FOR L LEG SWELLING AND REDESS STARTED HER ON CEFDINIR YESTERDAY AND TO HAVE FOLLOW UP TODAY. DR MONTERO WANTED HER SEEN IN ED DUE TO CONFUSION THINKS SHE MAY BE SEPTIC Source: patient Exam Limitations: no limitations History of Present Illness Date Seen by Provider: Sep 15, 2020 Time Seen by Provider: 10:39 Initial Comments Patient to the ER by private conveyance from Dr. Hall's office where she was being seen for checkup and for increased swelling and weeping from her left leg. She says she thinks the swelling and weeping is due to being on the hydrochlorothiazide which is noted to be a water pill and she suspects it is adding water to her system. She has been taking the medication up until today. She also states she is been having worsening confusion because the nurse insisted that she talk to her yesterday but the patient does not recall the conversation. Patient is a history of coronary disease, dementia, hypertension. Patient is having some pain and swelling in her left leg and has it wrapped today and was started on an antibiotic but has not picked it up yet. She was sent over from the clinic because of her increasing confusion and concern she might be septic. No mention of any fevers. Patient is a difficult historian with pressured speech and very cyclical conversation. Allergies and Home Medications Allergies Coded Allergies: Pdwpknx-Vgb-Cdd Reductase Inhibitor (Verified Allergy, Intermediate, MUSCLE WEAKNESS, 05/01/16) niacin (Verified Allergy, Unknown, FLUSHED/ALMOST PASSED, 05/01/16) Home Medications Aspirin 325 Mg Tablet, 325 MG PO DAILY, (Reported) Benazepril HCl 10 Mg Tablet, 10 MG PO DAILY, (Reported) Cholecalciferol (Vitamin D3) 1,000 Unit Tablet, 1,000 UNIT PO DAILY, (Reported) Hydrocodone Bit/Acetaminophen 1 Each Tablet, 1-2 EACH PO Q6H Prescribed by: CELIO AUSTIN on 11/23/16 1352 Metoprolol Succinate 25 Mg Tab.er.24h, 25 MG PO HS, (Reported) Multivitamin 1 Each Tab.chew, 1 EACH PO BID, (Reported) Nitrofurantoin Macrocrystal 100 Mg Capsule, 100 MG PO BID Prescribed by: BRENT DIEZ on 07/21/172030 Patient Home Medication List Home Medication List Reviewed: Yes Review of Systems Constitutional: No chills, No fever, No malaise, No weakness EENTM: No hearing loss, No ear pain, No eye pain Respiratory: No cough, No short of breath Cardiovascular: No chest pain, No edema Gastrointestinal: No abdominal pain, No constipation, No diarrhea Genitourinary: No dysuria, No frequency Control/STD Prophylaxis: None Musculoskeletal: No back pain, No joint pain All Other Systems Reviewed Negative Unless Noted: Yes Past Tuopdyl-Hignbk-Fwimsz Hx Patient Social History Tobacco Use?: No Smoking Status: Never a Smoker Use of E-Cig and/or Vaping dev: No Use of E-Cig and/or Vaping Chilo: Never a User Substance use?: No Pt feels they are or have been: No Immunizations Up To Date Tetanus Booster (TDap): Unknown Influenza Vaccine Up-to-Date: Yes; Up-to-Date First/Initial COVID19 Vaccinat: UNKNOW DATE Second COVID19 Vaccination Cruz: UNKNOW DATE Seasonal Allergies Seasonal Allergies: No Past Medical History Surgeries: Yes ( BOWEL RESECTION,CATARACTS,VAG.CYSTS,D&C,MELANOMA,BREAST BIOPSIES X6) Gallbladder, Hysterectomy, Oophorectomy Respiratory: No Cardiac: Yes (MITRAL VALVE REGURGITATION, STENTS X3 JUNE 2016) Atrial Fibrillation, Heart Attack, Hypertension Neurological: No Reproductive Disorders: No 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 Sexually Transmitted Disease: No HIV/AIDS: No Genitourinary: No Gastrointestinal: Yes (BOWEL RESECTION) Musculoskeletal: No Endocrine: No HEENT: No Loss of Vision: Bilateral Hearing Impairment: Denies Cancer: Yes (ENDOMETRIAL CA) Did You Recieve Any Treatments: Yes What Type of Treatment Did You: Surgical Intervention Psychosocial: No Integumentary: No Blood Disorders: No Adverse Reaction/Blood Tranf: No (N/A) Physical Exam Vital Signs Vital Signs - First Documented 09/15/20 10:38 Temp 35.8 Pulse 107 Resp 18 B/P (MAP) 194/100 (131) Pulse Ox 96 O2 Delivery Room Air Capillary Refill : Less Than 3 Seconds Height, Weight, BMI Height: 5'2.00" Weight: 175lbs. 0.0oz. [id number]; 30.00 BMI Method:Stated General Appearance: WD/WN, no apparent distress HEENT: PERRL/EOMI, pharynx normal Neck: full range of motion, normal inspection Cardiovascular: normal peripheral pulses, regular rate, rhythm Respiratory: lungs clear, normal breath sounds, no respiratory distress, no accessory muscle use Gastrointestinal: normal bowel sounds, non tender, soft Back: normal inspection, no CVA tenderness Legs: left leg soft tissue tenderness, left leg swelling (Edema bilateral legs left worse than right with erythema warmth and tenderness on the left lower extremity. Mild weeping) Progress/Results/Core Measures Results/Orders Lab Results Laboratory Tests Test 09/15/20 11:55 09/15/20 13:33 Range/Units White Blood Count 5.7 4.3-11.0 10^3/uL Red Blood Count 4.21 3.80-5.11 10^6/uL Hemoglobin 12.7 11.5-16.0 g/dL Hematocrit 39 35-52 % Mean Corpuscular Volume 93 80-99 fL Mean Corpuscular Hemoglobin 30 25-34 pg Mean Corpuscular Hemoglobin Concent 33 32-36 g/dL Red Cell Distribution Width 12.4 10.0-14.5 % Platelet Count 257 130-400 10^3/uL Mean Platelet Volume 10.3 9.0-12.2 fL Immature Granulocyte % (Auto) 0 % Neutrophils (%) (Auto) 72 42-75 % Lymphocytes (%) (Auto) 16 12-44 % Monocytes (%) (Auto) 10 0-12 % Eosinophils (%) (Auto) 2 0-10 % Basophils (%) (Auto) 1 0-10 % Neutrophils # (Auto) 4.1 1.8-7.8 10^3/uL Lymphocytes # (Auto) 0.9 L 1.0-4.0 10^3/uL Monocytes # (Auto) 0.5 0.0-1.0 10^3/uL Eosinophils # (Auto) 0.1 0.0-0.3 10^3/uL Basophils # (Auto) 0.0 0.0-0.1 10^3/uL Immature Granulocyte # (Auto) 0.0 0.0-0.1 10^3/uL Prothrombin Time 18.1 H 12.2-14.7 SEC INR Comment 1.5 H 0.8-1.4 Activated Partial Thromboplast Time 36 H 24-35 SEC Sodium Level 144 135-145 MMOL/L Potassium Level 3.7 3.6-5.0 MMOL/L Chloride Level 108 H 98-107 MMOL/L Carbon Dioxide Level 23 21-32 MMOL/L Anion Gap 13 5-14 MMOL/L Blood Urea Nitrogen 13 7-18 MG/DL Creatinine 1.06 0.60-1.30 MG/DL Estimat Glomerular Filtration Rate 50 BUN/Creatinine Ratio 12 Glucose Level 107 H 70-105 MG/DL Lactic Acid Level 1.28 0.50-2.00 MMOL/L Calcium Level 9.7 8.5-10.1 MG/DL Corrected Calcium 9.5 8.5-10.1 MG/DL Total Bilirubin 1.1 H 0.1-1.0 MG/DL Aspartate Amino Transf (AST/SGOT) 16 5-34 U/L Alanine Aminotransferase (ALT/SGPT) 14 0-55 U/L Alkaline Phosphatase 80 40-136 U/L B-Type Natriuretic Peptide 296.9 H <100.0 PG/ML Total Protein 7.2 6.4-8.2 GM/DL Albumin 4.2 3.2-4.5 GM/DL Urine Color YELLOW Urine Clarity CLEAR Urine pH 6.0 5-9 Urine Specific [place] 1.020 1.016-1.022 Urine Protein NEGATIVE NEGATIVE Urine Glucose (UA) NEGATIVE NEGATIVE Urine Ketones TRACE H NEGATIVE Urine Nitrite NEGATIVE NEGATIVE Urine Bilirubin NEGATIVE NEGATIVE Urine Urobilinogen 0.2 < = 1.0 MG/DL Urine Leukocyte Esterase TRACE H NEGATIVE Urine RBC (Auto) NEGATIVE NEGATIVE Urine RBC NONE /HPF Urine WBC 5-10 H /HPF Urine Squamous Epithelial Cells RARE /HPF Urine Crystals NONE /LPF Urine Bacteria TRACE /HPF Urine Casts NONE /LPF Urine Mucus NEGATIVE /LPF Urine Culture Indicated YES My Orders Orders - BRENT DIEZ Cbc With Automated Diff (09/15/20 11:23) Comprehensive Metabolic Panel (09/15/20 11:23) Blood Culture (09/15/20 11:23) Sputum Culture (09/15/20 11:23) Urinalysis (09/15/20 11:23) Urine Culture (09/15/20 11:23) Protime With Inr (09/15/20 11:23) Partial Thromboplastin Time (09/15/20 11:23) Chest 1 View, Ap/Pa Only (09/15/20 11:23) Ed Iv/Invasive Line Start (09/15/20 11:23) Ed Iv/Invasive Line Start (09/15/20 11:23) Vital Signs Adult Sepsis Patie Q15M (09/15/20 11:23) O2 (09/15/20 11:23) Remove Rings In Anticipation O (09/15/20 11:23) Lactic Acid Analyzer (09/15/20 11:23) Cefazolin Injection (Ancef Injection) (09/15/20 11:30) BNP (09/15/20 11:23) Urine Culture (09/15/20 13:33) Fentanyl Inj (Sublimaze Injection) (09/15/20 14:30) Medications Given in ED Current Medications Medications Dose Ordered Sig/Juan Carlos Route Start Time Stop Time Status Last Admin Dose Admin Cefazolin Sodium 1000 mg/Sterile Water 10 ml @ 200 mls/hr ONCE ONCE IV 09/15/20 11:30 09/15/20 11:32 DC 09/15/20 13:25 200 MLS/HR Vital Signs/I&O 09/15/20 10:38 Temp 35.8 Pulse 107 Resp 18 B/P (MAP) 194/100 (131) Pulse Ox 96 O2 Delivery Room Air Blood Pressure Mean: 131 Progress Progress Note #1: Time: 11:29 Progress Note Septic work-up with cefazolin as our antibiotic of choice. We will hold off giving any IV fluids check a BMP and reassess. Difficult ascertain if she is truly confused/delirious or this is her baseline personality as she remembers details of conversations and items both near and distant history. Does seem like she is convinced the water pills, hydrochlorothiazide are causing her edema and weeping. Her left leg looks like it is a little cellulitic with probably some stasis edema but no significant breakdown. She already has a plan to start cefdinir by her primary care doctor. Progress Note #2: Time: 13:46 Progress Note After reviewing her labs and chest x-ray she is at her baseline BNP. We are still trying to get a urinalysis out of her. She does not appear to be in heart failure. The edema is likely from dependent edema. Diuretics are not likely to help her in this case. She already has compression Wojciech wrap and cefdinir set up for her. After we review the urinalysis we will reach out to the primary care provider. Progress Note #3: Time: 14:54 Progress Note Just resting the patient's blood pressure came down from 190s to 160s which is acceptable. Patient is alert and oriented x3. She has a UTI which may be causing some delirium however she seems to remember the details of her previous encounter. She would be well covered with cefdinir for her cellulitis as well as a UTI. Aseptic Vitals. Discussed the case with Dr. Hall over phone and she got a hold of the nurse to come give her a ride back to the clinic to get her car. Dr. Hall states she already sent cefdinir so we encouraged the patient to pick it up. Diagnostic Imaging Diagonstic Imaging: Xray Plain Films/CT/US/NM/MRI: chest Comments [facility] [place], [place] NAME: RYLAND BARRAGAN [facility] REC#: [id number] PT STATUS: REG ER : 1935 PHYSICIAN: BRENT DIEZ MD ADMIT DATE: 09/15/20/ER Draft Date of Exam:09/15/20 CHEST 1 VIEW, AP/PA ONLY Indication: Left leg swelling, redness FINDINGS: The heart size and pulmonary vascularity are within normal limits. The lungs are clear. No failure, effusion or pneumothorax. No interval change from comparison of June 2017. IMPRESSION: Stable unremarkable frontal chest. Dictated on workstation # [id number] Dict: 09/15/20 1241 Trans: 09/15/20 1243 [facility] [id number] Interpreted by: MATEO MICHAEL Electronically signed by: Reviewed: Reviewed by Me Departure Impression Primary Impression: Cellulitis Qualified Codes: L03.116 - Cellulitis of left lower limb Additional Impressions: UTI (urinary tract infection) Qualified Codes: N30.00 - Acute cystitis without hematuria Hypertension Qualified Codes: I10 - Essential (primary) hypertension Disposition: HOME, SELF-CARE Condition: Stable Departure-Patient Inst. Decision time for Depature: 15:00 Referrals: MONCHO HALL MD (PCP/Family) Primary Care Physician Patient Instructions: High Blood Pressure (DC), Cellulitis (Skin Infection), Adult ED, Urinary Tract Infection, Adult ED Add. Discharge Instructions: You have a bladder infection as well as an infection in your leg. Cefdinir should treat both. Start it tomorrow 09/16/2020. Cefdinir 1 capsule twice a day with food. Continue taking your other medications as prescribed. Hydrochlorothiazide/HCTZ is a water pill but it will not contribute to improvement or worsening of the swelling in your leg. The swelling is caused in this case by a combination of infection and incompetent veins. Follow-up in 1 to 2 weeks with your primary care provider. Return to the ER if you are having worsening symptoms. All discharge instructions reviewed with patient and/or family. Voiced understanding. BRENT DIEZ Sep 15, 2020 11:29
[2020-09-15] MEDS ORDERED: ceFAZolin INJECTION 1,000 MG in WATER (STERILE) FOR INJECTION 10 ML IV ONE (11:30)
[2020-09-15 12:13] LABS: BASOPHILS % (AUTO) 1 % (0-10); EOSINOPHILS # (AUTO) 0.1 10^3/uL (0.0-0.3); EOSINOPHILS % (AUTO) 2 % (0-10); HEMATOCRIT 39 % (35-52); HEMOGLOBIN 12.7 g/dL (11.5-16.0); LYMPHOCYTES # (AUTO) 0.9 10^3/uL (1.0-4.0); LYMPHOCYTES % (AUTO) 16 % (12-44); MEAN CORPUSCULAR HEMOGLOBIN 30 pg (25-34); MEAN CORPUSCULAR HGB CONC 33 g/dL (32-36); MEAN CORPUSCULAR VOLUME 93 fL (80-99); MEAN PLATELET VOLUME 10.3 fL (9.0-12.2); MONOCYTES # (AUTO) 0.5 10^3/uL (0.0-1.0); MONOCYTES % (AUTO) 10 % (0-12); NEUTROPHILS # (AUTO) 4.1 10^3/uL (1.8-7.8); NEUTROPHILS % (AUTO) 72 % (42-75); PLATELET COUNT 257 10^3/uL (130-400); WHITE BLOOD COUNT 5.7 10^3/uL (4.3-11.0)
[2020-09-15 12:24] LABS: INR 1.5 (0.8-1.4); PROTHROMBIN TIME PATIENT 18.1 SEC (12.2-14.7)
[2020-09-15 12:25] LABS: ALBUMIN 4.2 GM/DL (3.2-4.5)
[2020-09-15 12:26] LABS: POTASSIUM 3.7 MMOL/L (3.6-5.0)
[2020-09-15 12:27] LABS: CALCIUM 9.7 MG/DL (8.5-10.1)
[2020-09-15 12:28] LABS: TOTAL PROTEIN 7.2 GM/DL (6.4-8.2)
[2020-09-15 12:30] LABS: BILIRUBIN,TOTAL 1.1 MG/DL (0.1-1.0)
[2020-09-15 12:32] LABS: CREATININE SERUM 1.06 MG/DL (0.60-1.30)
--- NOTE | 2020-09-15 12:44 | Diagnostic Imaging Report ---
Indication: Left leg swelling, redness FINDINGS: The heart size and pulmonary vascularity are within normal limits. The lungs are clear. No failure, effusion or pneumothorax. No interval change from comparison of June 2017. IMPRESSION: Stable unremarkable frontal chest. Dictated by: Dictated on workstation # [id number]
[2020-09-15 13:52] LABS: BILIRUBIN,URINE NEGATIVE (NEGATIVE); CLARITY,URINE CLEAR; COLOR,URINE YELLOW; GLUCOSE, URINE (UA) NEGATIVE (NEGATIVE); KETONES,URINE TRACE (NEGATIVE); LEUKOCYTE ESTERASE ,URINE TRACE (NEGATIVE); NITRITE,URINE NEGATIVE (NEGATIVE); PROTEIN,URINE NEGATIVE (NEGATIVE)
[2020-09-15 14:02] LABS: BACTERIA,URINE TRACE /HPF; SQUAMOUS EPITHELIAL CELL,UR RARE /HPF
[2020-09-15] MEDS ORDERED: fentaNYL INJ 100 MCG/2 ML AMP IVP ONE (14:30)
[2020-09-15] MEDS ORDERED: cefTRIAXone 1,000 MG in WATER (STERILE) FOR INJECTION 10 ML IV ONE (15:15)
[2020-09-15 15:18] VITALS: BP 176/88
== END 2020-09-15 15:18 | disposition home or self-care (01) ==
LOC: EDUNIT# 10:30 → ER 10:32
DX: L03.116 Cellulitis of left lower limb (principal); N39.0 Urinary tract infection, site not specified; I10 Essential (primary) hypertension; I25.2 Old myocardial infarction; Z79.82 Long term (current) use of aspirin
CPT/HCPCS: 36415; 71045; 80053; 81000; 83605; 83880; 85025; 85610; 85730; 87040; 87088

== ENCOUNTER → 2020-09-22 | Outpatient (CLI) | payer MEDICARE | LOC: CARD 10:00 | PROVIDERS: ATTEND Family Medicine | DX: I08.1 Rheumatic disorders of both mitral and tricuspid valves (principal); I11.9 Hypertensive heart disease without heart failure; I25.10 Atherosclerotic heart disease of native coronary artery without angina pectoris; R60.0 Localized edema | CPT/HCPCS: 93306 ==

== ENCOUNTER 2020-12-30 13:13 | Outpatient (RCR) | payer MEDICARE ==
[2020-12-27 10:48] LABS: HEMATOCRIT 41 % (35-52); MEAN CORPUSCULAR HEMOGLOBIN 30 pg (25-34); MEAN CORPUSCULAR HGB CONC 32 g/dL (32-36); MEAN CORPUSCULAR VOLUME 93 fL (80-99); MEAN PLATELET VOLUME 10.5 fL (9.0-12.2); PLATELET COUNT 260 10^3/uL (130-400); WHITE BLOOD COUNT 6.6 10^3/uL (4.3-11.0)
[2020-12-27 11:02] LABS: ALBUMIN 4.2 GM/DL (3.2-4.5); BILIRUBIN,TOTAL 0.7 MG/DL (0.1-1.0); CALCIUM 9.4 MG/DL (8.5-10.1); CREATININE SERUM 1.05 MG/DL (0.60-1.30); POTASSIUM 3.6 MMOL/L (3.6-5.0); TOTAL PROTEIN 7.3 GM/DL (6.4-8.2)
[2021-02-07] MEDS ORDERED: MTP100TCR PO (14:31)
[2021-02-07] MEDS ORDERED: AMLO-250 PO (14:32)
[2021-02-07] MEDS ORDERED: BENA1TAB15 PO (14:32)
[2021-02-07] MEDS ORDERED: RIVA20TA PO (14:33)
[2021-02-07] MEDS ORDERED: CHOL500050 PO (14:34)
[2021-02-10] MEDS ORDERED: HYDR-34 PO (12:13)
[2021-02-10] MEDS ORDERED: FERR325T24 PO (12:13)
[2021-02-10] MEDS ORDERED: SENN1TAB76 PO (12:13)
[2021-02-10] MEDS ORDERED: ACHD5005 PO (14:02)
== END 2021-02-25 | disposition home or self-care (01) ==
LOC: ONC 13:13
PROVIDERS: ATTEND Internal Medicine Hematology & Oncology
DX: C54.1 Malignant neoplasm of endometrium (principal); I10 Essential (primary) hypertension; I25.10 Atherosclerotic heart disease of native coronary artery without angina pectoris; D63.0 Anemia in neoplastic disease; Z90.710 Acquired absence of both cervix and uterus; Z98.890 Other specified postprocedural states; Z90.49 Acquired absence of other specified parts of digestive tract; Z82.49 Family history of ischemic heart disease and other diseases of the circulatory system; Z80.8 Family history of malignant neoplasm of other organs or systems
CPT/HCPCS: 80053; 85027; 99213

== ENCOUNTER 2021-02-05 16:22 | Inpatient (IN) | payer MEDICARE ==
[~2021-02-05] VITALS: Ht 157 cm; Wt 71.2 kg
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
[2021-02-05] MEDS ORDERED: ONDANSETRON 4 MG/2 ML (SDV) Z0FRAN IVP ONE (17:00)
[2021-02-05] MEDS ORDERED: fentaNYL INJ 100 MCG/2 ML AMP IVP ONE (17:00)
[2021-02-05 17:36] LABS: BASOPHILS # (AUTO) 0.1 10^3/uL (0.0-0.1); BASOPHILS % (AUTO) 1 % (0-10); EOSINOPHILS # (AUTO) 0.1 10^3/uL (0.0-0.3); EOSINOPHILS % (AUTO) 1 % (0-10); HEMATOCRIT 44 % (35-52); HEMOGLOBIN 14.4 g/dL (11.5-16.0); LYMPHOCYTES # (AUTO) 1.2 10^3/uL (1.0-4.0); LYMPHOCYTES % (AUTO) 11 % (12-44); MEAN CORPUSCULAR HEMOGLOBIN 30 pg (25-34); MEAN CORPUSCULAR HGB CONC 33 g/dL (32-36); MEAN CORPUSCULAR VOLUME 92 fL (80-99); MEAN PLATELET VOLUME 10.7 fL (9.0-12.2); MONOCYTES # (AUTO) 0.8 10^3/uL (0.0-1.0); MONOCYTES % (AUTO) 8 % (0-12); NEUTROPHILS # (AUTO) 8.7 10^3/uL (1.8-7.8); NEUTROPHILS % (AUTO) 79 % (42-75); PLATELET COUNT 226 10^3/uL (130-400); WHITE BLOOD COUNT 10.9 10^3/uL (4.3-11.0)
[2021-02-05 17:45] LABS: POTASSIUM 3.5 MMOL/L (3.6-5.0)
[2021-02-05 17:46] LABS: CALCIUM 10.2 MG/DL (8.5-10.1)
[2021-02-05 17:51] LABS: CREATININE SERUM 1.39 MG/DL (0.60-1.30)
[2021-02-05] MEDS ORDERED: fentaNYL INJ 100 MCG/2 ML AMP IVP PRN (18:00)
--- NOTE | 2021-02-05 18:00 | Diagnostic Imaging Report ---
INDICATION: Fall with left hip fracture. EXAMINATION: AP pelvis and AP and lateral views of the left hip were obtained at 5:44 p.m. FINDINGS: There is osteopenia. There is an acute intertrochanteric fracture of the left proximal femur, with varus angulation. There are underlying degenerative findings of the hip joints on both sides, of moderate severity. IMPRESSION: Acute intertrochanteric fracture of left proximal femur, with varus angulation. Underlying osteopenia and mild degenerative changes. Dictated by: Dictated on workstation # [id number]
--- NOTE | 2021-02-05 18:01 | Diagnostic Imaging Report ---
INDICATION: Fall, preop for left hip fracture surgery. EXAMINATION: Frontal chest was obtained at 5:43 p.m. COMPARISON: 09/15/2020. FINDINGS: There is cardiomegaly. Mediastinal silhouette is unremarkable. The lungs appear clear. There is no pneumothorax or pleural fluid collection. IMPRESSION: Cardiomegaly with no acute process in the chest. Dictated by: Dictated on workstation # [id number]
[2021-02-05 20:00] VITALS: BP 138/79
[2021-02-05] MEDS ORDERED: ONDANSETRON 4 MG/2 ML (SDV) Z0FRAN IV PRN (20:00)
[2021-02-05] MEDS ORDERED: fentaNYL INJ 100 MCG/2 ML AMP IV PRN (20:00)
[2021-02-05 20:04] VITALS: BP 136/102
[2021-02-05] MEDS ORDERED: RT-ALBUTEROL SULF 2.5 MG/3 ML PRE-MIX VIAL INH PRN (20:15)
[2021-02-05] MEDS: ALPRAZolam 0.25 MG (XANAX) TAB PO PRN (20:44)
[2021-02-05] MEDS: NS IV 1000 ML 1,000 ML IV SCH (20:44)
[2021-02-05] MEDS ORDERED: HYDROmorphone 2 MG/ML VIAL (DILAUDID) IVP PRN (22:15)
[2021-02-06] VITALS (16 sets, daily range): BP systolic 86–163; BP diastolic 48–86
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
[2021-02-06] MEDS: MULTIVIT W/MINERALS TAB (THERAGRAN M) PO SCH (05:29)
[2021-02-06] MEDS: NS IV 1000 ML 1,000 ML IV SCH ×2 (06:18→17:08)
[2021-02-06] MEDS ORDERED: ONDANSETRON 4 MG/2 ML (SDV) Z0FRAN IVP PRN ×2 (07:15→07:45)
[2021-02-06] MEDS ORDERED: MEPERIDINE (DEMEROL) INJ 50 MG/ML IVP ONE (07:15)
[2021-02-06] MEDS ORDERED: fentaNYL INJ 100 MCG/2 ML AMP IVP ONE (07:15)
[2021-02-06] MEDS ORDERED: LACTATED RINGERS 1,000 ML IV PRN (07:15)
[2021-02-06] MEDS ORDERED: morphine INJ 10 MG/ML 1ML (SYR OR VIAL) IVP ONE (07:15)
[2021-02-06] MEDS ORDERED: fentaNYL INJ 100 MCG/2 ML AMP ONE (07:25)
[2021-02-06] MEDS ORDERED: ONDANSETRON 4 MG/2 ML (SDV) Z0FRAN ONE (07:25)
[2021-02-06] MEDS ORDERED: LIDOCAINE PF 2% 5 ML (XYLOCAINE) VIAL ONE (07:25)
[2021-02-06] MEDS ORDERED: MIDAZOLAM 2 MG/2 ML (VERSED) VIAL ONE (07:25)
[2021-02-06] MEDS ORDERED: SEVOFLURANE (ULTANE) 15 ML INHAL SOLN ONE ×2 (07:25→08:48)
[2021-02-06] MEDS ORDERED: proPOfol 200 MG/20 ML (DIPRIVAN) VIAL IV ONE (07:25)
[2021-02-06] MEDS ORDERED: NALOXONE 0.4 MG/ML 1 ML (NARCAN) VIAL IV PRN (07:45)
[2021-02-06] MEDS ORDERED: fentaNYL INJ 100 MCG/2 ML AMP IVP PRN (07:45)
[2021-02-06] MEDS ORDERED: ceFAZolin 2 GM IV Premixed 50 ML IV ONE (07:50)
--- NOTE | 2021-02-06 07:51 | Progress Note-Pre Operative ---
Pre-Operative Progress Note H&P Reviewed The H&P was reviewed, patient examined and no changes noted. Date Seen by Provider: Feb 06, 2021 Time Seen by Provider: 07:45 Date H&P Reviewed: Feb 06, 2021 Time H&P Reviewed: 07:11 Pre-Operative Diagnosis: left intertrochanteric femur fracture closed, displaced BLAIR MOYA MD Feb 06, 2021 07:51
--- NOTE | 2021-02-06 07:52 | Progress Note-Post Operative ---
Post-Operative Progess Note Surgeon (s)/Sinter Machine Operator (s) Surgeon BLAIR MOYA MD Sinter Machine Operator: Riley Jeffers Pre-Operative Diagnosis left intertrochanteric femur fracture closed, displaced Post-Operative Diagnosis left intertrochanteric femur fracture closed, displaced two part Procedure & Operative Findings Date of Procedure 02/06/21 Procedure Performed/Findings L hip IM nail Anesthesia Type GETA Estimated Blood Loss Estimated blood loss (mL): 100 ml Specimens/Packing Specimens Removed none Packing: none BLAIR MOYA MD Feb 06, 2021 07:52
[2021-02-06] MEDS ORDERED: diphenhydrAMINE 50 MG/ML INJ (BENADRYL) IVP PRN (08:00)
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
[2021-02-06] MEDS ORDERED: BUPIVACAINE 0.25% 30 ML (SENSORCAINE) VIAL ONE (08:48)
[2021-02-06] MEDS ORDERED: ROCURONIUM 50 MG/5 ML (ZEMURON) VIAL IV ONE (08:48)
[2021-02-06] MEDS ORDERED: lisINopril 10 MG (PRINIVIL) TABLET PO SCH (09:00)
--- NOTE | 2021-02-06 09:13 | Diagnostic Imaging Report ---
EXAM: FLUOROSCOPY UP TO 1 HOUR INDICATION: Left hip fracture. ORIF. COMPARISON: Pelvis and left hip radiographs 02/05/2021. FINDINGS/ IMPRESSION: Two intraoperative fluoroscopic images demonstrate interval placement of a left femoral intramedullary gilma with dynamic hip screw fixation. Please see procedure report for further details. Fluoroscopy time 38 seconds. Dictated by: Dictated on workstation # [id number]
[2021-02-06] MEDS ORDERED: morphine INJ 10 MG/ML 1ML (SYR OR VIAL) ONE (09:17)
[2021-02-06] MEDS: HYDROcodone/APAP 7.5 MG/325 MG (LORTAB, LORCET PLUS) TABLET PO PRN ×2 (10:16→23:50)
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
[2021-02-06] MEDS: ceFAZolin 2 GM IV Premixed 50 ML IV SCH ×2 (17:08→23:43)
[2021-02-07] MEDS: NS IV 1000 ML 1,000 ML IV SCH ×3 (03:10→16:45)
[2021-02-07 04:22] VITALS: BP 106/55
[2021-02-07 05:49] LABS: HEMOGLOBIN 8.7 g/dL (11.5-16.0)
[2021-02-07] MEDS: MULTIVIT W/MINERALS TAB (THERAGRAN M) PO SCH (05:55)
[2021-02-07 06:03] LABS: POTASSIUM 3.9 MMOL/L (3.6-5.0)
[2021-02-07 06:04] LABS: CALCIUM 7.9 MG/DL (8.5-10.1)
[2021-02-07 06:09] LABS: CREATININE SERUM 1.2 MG/DL (0.60-1.30)
--- NOTE | 2021-02-07 07:50 | Progress Note ---
Standard Progress Note Progress Notes/Assess & Plan Date Seen by a Provider: Feb 07, 2021 Time Seen by a Provider: 07:49 Progress/Assessment & Plan confused to date no complaints Laboratory Tests Test 02/06/21 18:36 02/07/21 05:44 Range/Units Glucometer 142 H 70-110 MG/DL Hemoglobin 8.7 #L 11.5-16.0 g/dL Hematocrit 27 L 35-52 % Sodium Level 138 135-145 MMOL/L Potassium Level 3.9 3.6-5.0 MMOL/L Chloride Level 108 H 98-107 MMOL/L Carbon Dioxide Level 23 21-32 MMOL/L Anion Gap 7 5-14 MMOL/L Blood Urea Nitrogen 17 7-18 MG/DL Creatinine 1.20 0.60-1.30 MG/DL Estimat Glomerular Filtration Rate 43 BUN/Creatinine Ratio 14 Glucose Level 91 70-105 MG/DL Calcium Level 7.9 L 8.5-10.1 MG/DL Vital Signs Date Time Temp Pulse Resp B/P (MAP) Pulse Ox O2 Delivery O2 Flow Rate FiO2 02/07/21 04:22 36.4 82 16 106/55 (72) 98 Nasal Cannula 2.00 02/07/21 01:12 70 02/06/21 23:46 36.6 94 18 110/53 (72) 98 Nasal Cannula 2.00 02/06/21 21:34 91 20 107/54 (71) 97 Nasal Cannula 2.00 02/06/21 21:16 Nasal Cannula 2.00 02/06/21 21:12 97 Nasal Cannula 2.00 02/06/21 19:52 36.3 90 20 86/48 (61) 97 Nasal Cannula 2.00 02/06/21 17:00 84 02/06/21 16:58 97 Nasal Cannula 2.00 02/06/21 15:59 36.8 117 20 101/49 (66) 97 Nasal Cannula 2.00 02/06/21 12:45 103 02/06/21 11:43 36.4 94 20 112/59 (76) 97 Nasal Cannula 2.00 02/06/21 11:00 94 Nasal Cannula 2.00 02/06/21 10:15 95 Nasal Cannula 2.00 02/06/21 10:11 36.8 90 12 137/62 (87) 85 Room Air 02/06/21 10:00 Room Air 02/06/21 10:00 36.3 18 136/78 (97) 94 Room Air 02/06/21 09:50 18 133/62 (85) 94 Room Air 02/06/21 09:49 Room Air 02/06/21 09:45 Room Air 02/06/21 09:40 18 132/73 (92) 97 OxyMask 1 02/06/21 09:37 OxyMask 3 02/06/21 09:36 OxyMask 4 02/06/21 09:30 18 143/78 (99) 100 OxyMask 4 02/06/21 09:30 OxyMask 4 02/06/21 09:20 18 155/78 (103) 100 OxyMask 6 02/06/21 09:20 OxyMask 6 02/06/21 09:10 18 163/78 (106) 100 OxyMask 6 02/06/21 09:08 OxyMask 6 02/06/21 09:08 36.5 16 160/86 (110) 97 OxyMask 6 02/06/21 07:57 36.7 86 20 118/57 (77) 97 Room Air I & O 02/07/21 07:00 Intake Total 630 ml Output Total 885 ml Balance -255 ml L hip dressing intact. Intact DF and PF of toes and ankle with grossly intact sensation throughout. 2 plus DP pulse s/p L hip Im gilma PT/OT ARU? BLAIR MOYA MD Feb 07, 2021 07:50
[2021-02-07 08:13] VITALS: BP 94/48
[2021-02-07] MEDS: ASPIRIN E.C. 81 MG (ECOTRIN) TAB PO SCH ×2 (08:51→08:53)
[2021-02-07] MEDS: HYDROcodone/APAP 7.5 MG/325 MG (LORTAB, LORCET PLUS) TABLET PO PRN (08:52)
[2021-02-07] MEDS: ENOXAPARIN 40 MG/0.4 ML (LOVENOX) SYR SC SCH (08:52)
--- NOTE | 2021-02-07 08:54 | Physical Therapy Evaluation ---
PT Evaluation-General Medical Diagnosis Admission Date Feb 05, 2021 at 18:23 Medical Diagnosis: left hip IM gilma Onset Date: Feb 05, 2021 Therapy Diagnosis Therapy Diagnosis: impaired mobility, strength, endurance Height/Weight Height (Feet): 5 Height (Inches): 2.00 Weight (Pounds): 175 Weight (Ounces): 0.0 Precautions Precautions/Isolations: Fall Prevention, Standard Precautions Weight Bear Status Right Lower Extremity: Right Full Weight Bearing Left Lower Extremity: Left Partial Weight Bearing Referral Physician: Zeyad Reason for Referral: Evaluation/Treatment Medical History Additional Medical History Past Medical History Surgeries: Gallbladder, Hysterectomy, Oophorectomy Atrial Fibrillation, Heart Attack, Hypertension 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 9-Eocsngrozu-mqueepr completes the activity by him/herself with no assistance from a helper. 5-Set-up or Clean-up Assistance-helper sets up or cleans up; patient completes activity. [place] assists only prior to or following the activity. 4-Supervision or Touching Assistance-helper provides verbal cues and/or touching/steadying and/or contact guard assistance as patient completes activi ty. Assistance may be provided throughout the activity or intermittently. 3-Partial/Moderate Assistance-helper does LESS THAN HALF the effort. [place] lifts, holds or supports trunk or limbs, but provides less than half the effort. 2-Substantial/Maximal Assistance-helper does MORE THAN HALF the effort. [place] lifts or holds trunk or limbs and provides more than half the effort. 4-Yibwjpwrf-fztqeu does ALL the effort. Patient does none of the effort to complete the activity. Or, the assistance of 2 or more helpers is required for the patient to complete the activity. If activity was not attempted, code reason: 7-Patient Refused. 9-Not Applicable-not attempted and the patient did not perform the activity before the current illness, exacerbation or injury. 10-Not Attempted due to Environmental Limitations-(lack of equipment, weather restraints, etc.). 88-Not Attempted due to Medical Conditions or Safety Concerns. Bed Mobility: 6 Transfers (B,C,W/C): 6 Gait: 6 Stairs: 6 Indoor Mobility (Ambulation): Independent Stairs: Independent PT Evaluation-Current Subjective Patient sitting EOB pre tx, agrees to PT, has no pain at rest but severe pain with activity. Pt/Family Goals to be independent at home Objective Patient Orientation: Person, Place, Situation Attachments: James Catheter, IV Sensory Hearing: Functional Sensation Right Lower Extremit: Intact Sensation Left Lower Extremity: Intact Transfers Sit to Stand (QC): 4 Chair/Zoj-yf-Ebsiu Xfer(QC): 4 Gait Does the Patient Walk?: Yes Mode of Locomotion: Walk Anticipated Mode of Locomotion: Walk Distance: 2' Gait Assistive Device: FWW Comments/Gait Description slow, compliant with PWB Balance Sitting Static: Normal Sitting Dynamic: Normal Standing Static: Fair Standing Dynamic: Fair Treatment BLE seated exercises x15 (AP, LAQ) Assessment/Needs Patient in recliner post tx, has nurse call, phone, tray, all needs met. Patient has impaired mobility, strength, endurance. Compliant with PWB. Rehab Potential: Fair PT Long-Term Goals Long-Term Goals PT Agent Spa Desk Goals Time Frame: Feb 14, 2021 Roll Left & Right (QC): 4 Sit to Lying (QC): 4 Lying-Sitting on Side/Bed(QC): 4 Sit to Stand (QC): 4 (SBA) Chair/Ayl-ho-Titmv Xfer(QC): 4 (SBA) Walk 10 feet (QC): 4 (SBA) Walk 50ft with 2 Turns (QC): 4 (SBA) PT Plan Problem List Problem List: Activity Tolerance, Functional Strength, Safety, Balance, Gait, Transfer, Bed Mobility, ROM Treatment/Plan Treatment Plan: Continue Plan of Care Treatment Plan: Bed Mobility, Education, Functional Activity Zafar, Functional Strength, Gait, Safety, Therapeutic Exercise, Transfers Treatment Duration: Feb 14, 2021 Frequency: 11 times per week Estimated Hrs Per Day: .25 hour per day Patient and/or Family Agrees t: Yes Safety Risks/Education Patient Education: Gait Training, Transfer Techniques, Correct Positioning, Safety Issues Teaching Recipient: Patient Teaching Methods: Demonstration, Discussion Response to Teaching: Reinforcement Needed Time/GCodes Time In: 817 Time Out: 831 Total Billed Treatment Time: 14 Total Billed Treatment 1 visit BETTY Boone' CHRIS GOLD PT Feb 07, 2021 08:54
[2021-02-07 11:17] VITALS: BP 81/51
--- NOTE | 2021-02-07 13:35 | Physical Therapy Daily Note ---
PT Daily Note-Current Subjective Patient in recliner pre tx, agrees to PT, has no pain at rest but does with activity. Appearance Patient in recliner post tx with nurse call, phone, tray, all needs met. Mental Status Patient Orientation: Person, Place, Situation Attachments: James Catheter, IV Transfers SCALE: Activities may be completed with or without assistive devices. 7-Sohrxojytb-zdrqtxj completes the activity by him/herself with no assistance from a helper. 5-Set-up or Clean-up Assistance-helper sets up or cleans up; patient completes activity. [place] assists only prior to or following the activity. 4-Supervision or Touching Assistance-helper provides verbal cues and/or touching/steadying and/or contact guard assistance as patient completes activity. Assistance may be provided throughout the activity or intermittently. 3-Partial/Moderate Assistance-helper does LESS THAN HALF the effort. [place] lifts, holds or supports trunk or limbs, but provides less than half the effort. 2-Substantial/Maximal Assistance-helper does MORE THAN HALF the effort. [place] lifts or holds trunk or limbs and provides more than half the effort. 9-Wbyivkhmz-xoirty does ALL the effort. Patient does none of the effort to complete the activity. Or, the assistance of 2 or more helpers is required for the patient to complete the activity. If activity was not attempted, code reason: 7-Patient Refused. 9-Not Applicable-not attempted and the patient did not perform the activity before the current illness, exacerbation or injury. 10-Not Attempted due to Environmental Limitations-(lack of equipment, weather restraints, etc.). 88-Not Attempted due to Medical Conditions or Safety Concerns. Sit to Stand (QC): 3 Chair/Rnq-rh-Opxsf Xfer(QC): 4 cues for hand placement and positioning Weight Bearing Right Lower Extremity: Right Full Weight Bearing Left Lower Extremity: Left Partial Weight Bearing Gait Training Distance: 6' Gait Persons Needed: 1 Gait Assistive Device: FWW 3' forward and 3' back, cues for PWB on LLE Exercises Seated Therapy Exercises: Ankle pumps, Long arc quads Seated Reps: 15 Treatments ambulation, LE exercise Assessment Current Status: Fair Progress patient able to take some steps this afternoon PT Assisted Goals Assisted Goals PT Assisted Goals Time Frame: Feb 14, 2021 Roll Left & Right (QC): 4 Sit to Lying (QC): 4 Lying-Sitting on Side/Bed(QC): 4 Sit to Stand (QC): 4 (SBA) Chair/Xgd-wy-Jjqfy Xfer(QC): 4 (SBA) Walk 10 feet (QC): 4 (SBA) Walk 50ft with 2 Turns (QC): 4 (SBA) PT Plan Problem List Problem List: Activity Tolerance, Functional Strength, Safety, Balance, Gait, Transfer, Bed Mobility, ROM Treatment/Plan Treatment Plan: Continue Plan of Care Treatment Plan: Bed Mobility, Education, Functional Activity Zafar, Functional Strength, Gait, Safety, Therapeutic Exercise, Transfers Treatment Duration: Feb 14, 2021 Frequency: 11 times per week Estimated Hrs Per Day: .25 hour per day Patient and/or Family Agrees t: Yes Safety Risks/Education Patient Education: Gait Training, Transfer Techniques, Reviewed Precautions, Correct Positioning, Safety Issues Teaching Recipient: Patient Teaching Methods: Demonstration, Discussion Response to Teaching: Reinforcement Needed Time/GCodes Time In: 1317 Time Out: 1327 Total Billed Treatment Time: 10 Total Billed Treatment 1 visit FA CHRIS GARBER PT Feb 07, 2021 13:35
--- NOTE | 2021-02-07 14:07 | Anesthesia-General Post-Op ---
General Patient Condition Mental Status/LOC: Same as Preop Cardiovascular: Satisfactory Nausea/Vomiting: Absent Respiratory: Satisfactory Pain: Controlled Complications: Absent Post Op Complications Complications None Follow Up Care/Instructions Patient Instructions None needed. Anesthesia/Patient Condition Patient Condition Patient is doing well, no complaints, stable vital signs, no apparent adverse anesthesia problems. No complications reported per nursing. SHASHA BA CRNA Feb 07, 2021 14:07
[2021-02-07] MEDS ORDERED: MTP100TCR PO (14:31)
[2021-02-07] MEDS ORDERED: AMLO-250 PO (14:32)
[2021-02-07] MEDS ORDERED: BENA1TAB15 PO (14:32)
[2021-02-07] MEDS ORDERED: RIVA20TA PO (14:33)
[2021-02-07] MEDS ORDERED: CHOL500050 PO (14:34)
[2021-02-07] MEDS ORDERED: NS IV 1000 ML 1,000 ML IV SCH (15:00)
--- NOTE | 2021-02-07 15:07 | Physical Therapy Daily Note ---
PT Daily Note-Current Subjective Pt concerned about her heart medication. Pharmacy came to the room and was helpling to answer her questions. Transfers SCALE: Activities may be completed with or without assistive devices. 9-Digijcssqg-dnehsns completes the activity by him/herself with no assistance from a helper. 5-Set-up or Clean-up Assistance-helper sets up or cleans up; patient completes activity. [place] assists only prior to or following the activity. 4-Supervision or Touching Assistance-helper provides verbal cues and/or touching/steadying and/or contact guard assistance as patient completes activity. Assistance may be provided throughout the activity or intermittently. 3-Partial/Moderate Assistance-helper does LESS THAN HALF the effort. [place] lifts, holds or supports trunk or limbs, but provides less than half the effort. 2-Substantial/Maximal Assistance-helper does MORE THAN HALF the effort. [place] lifts or holds trunk or limbs and provides more than half the effort. 8-Bmuazjgbw-reqbqe does ALL the effort. Patient does none of the effort to comp lete the activity. Or, the assistance of 2 or more helpers is required for the patient to complete the activity. If activity was not attempted, code reason: 7-Patient Refused. 9-Not Applicable-not attempted and the patient did not perform the activity before the current illness, exacerbation or injury. 10-Not Attempted due to Environmental Limitations-(lack of equipment, weather restraints, etc.). 88-Not Attempted due to Medical Conditions or Safety Concerns. Lying to Sitting/Side of Bed(Q: 3 Sit to Stand (QC): 4 Chair/Qwq-gv-Peihd Xfer(QC): 3 Weight Bearing Right Lower Extremity: Right Full Weight Bearing Left Lower Extremity: Left Partial Weight Bearing Gait Training Gait Assistive Device: FWW Ambulate forward and backward 5 feet. Difficulty maintaining PWB status. Exercises Supine Ex: LE Protocol Supine Reps: 10 PT Manager Lean Goals [facility] Goals PT [facility] Goals Time Frame: Feb 14, 2021 Roll Left & Right (QC): 4 Sit to Lying (QC): 4 Lying-Sitting on Side/Bed(QC): 4 Sit to Stand (QC): 4 (SBA) Chair/Rck-vy-Dcirr Xfer(QC): 4 (SBA) Walk 10 feet (QC): 4 (SBA) Walk 50ft with 2 Turns (QC): 4 (SBA) PT Plan Treatment/Plan Treatment Plan: Continue Plan of Care Treatment Plan: Bed Mobility, Education, Functional Activity Zafar, Functional Strength, Gait, Safety, Therapeutic Exercise, Transfers Treatment Duration: Feb 14, 2021 Frequency: 11 times per week Estimated Hrs Per Day: .25 hour per day Patient and/or Family Agrees t: Yes Time/GCodes Time In: 1350 Time Out: 1410 Total Billed Treatment Time: 20 Total Billed Treatment visit, ex 10 min, gt 10 min JULIO CESAR YANCEY PT Feb 07, 2021 15:07
[2021-02-07 15:34] LABS: BASOPHILS % (AUTO) 0 % (0-10); EOSINOPHILS # (AUTO) 0.1 10^3/uL (0.0-0.3); EOSINOPHILS % (AUTO) 1 % (0-10); HEMATOCRIT 29 % (35-52); HEMOGLOBIN 9.3 g/dL (11.5-16.0); LYMPHOCYTES # (AUTO) 1.2 X 10^3 (1.0-4.0); LYMPHOCYTES % (AUTO) 13 % (12-44); MEAN CORPUSCULAR HEMOGLOBIN 31 pg (25-34); MEAN CORPUSCULAR HGB CONC 33 g/dL (32-36); MEAN CORPUSCULAR VOLUME 95 fL (80-99); MEAN PLATELET VOLUME 10.7 fL (9.0-12.2); MONOCYTES # (AUTO) 1.1 X 10^3 (0.0-1.0); MONOCYTES % (AUTO) 12 % (0-12); NEUTROPHILS # (AUTO) 6.9 X 10^3 (1.8-7.8); NEUTROPHILS % (AUTO) 75 % (42-75); PLATELET COUNT 171 10^3/uL (130-400); WHITE BLOOD COUNT 9.3 10^3/uL (4.3-11.0)
[2021-02-07 15:42] LABS: POTASSIUM 3.7 MMOL/L (3.6-5.0)
[2021-02-07 15:43] LABS: CALCIUM 8.2 MG/DL (8.5-10.1)
[2021-02-07 15:48] LABS: CREATININE SERUM 1.12 MG/DL (0.60-1.30)
[2021-02-07 16:00] VITALS: BP 118/56
--- NOTE | 2021-02-07 16:05 | Progress Note ---
Subjective Subjective/Events-last exam Seen at 1137 am. States she is feeling pretty well, had a lot of pain with PT though. Objective Exam Last Set of Vital Signs Vital Signs Date Time Temp Pulse Resp B/P (MAP) Pulse Ox O2 Delivery O2 Flow Rate FiO2 02/07/21 12:06 96 02/07/21 11:17 36.2 20 81/51 (61) 96 Room Air 02/07/21 08:15 2.00 02/05/21 20:04 21 Capillary Refill : NONELess Than 3 Seconds I&O Intake and Output 02/07/21 00:00 Intake Total 430 ml Output Total 945 ml Balance -515 ml Intake Oral 380 ml IV Total 50 ml Output Urine Total 945 ml General: Alert, Oriented X3, No Acute Distress Lungs: Clear to Auscultation, Normal Air Movement Heart: Regular Rate, No Murmurs Neuro: Normal Speech Psych/Mental Status: Mood NL Results/Procedures Lab Laboratory Tests 02/06/21 18:36: Glucometer 142H 02/07/21 05:44: Hemoglobin 8.7#L, Hematocrit 27L, Sodium Level 138, Potassium Level 3.9, Chloride Level 108H, Carbon Dioxide Level 23, Anion Gap 7, Blood Urea Nitrogen 17, Creatinine 1.20, Estimat Glomerular Filtration Rate 43, BUN/Creatinine Ratio 14, Glucose Level 91, Calcium Level 7.9L 02/07/21 15:25: Hemoglobin 9.3L, Hematocrit 29L, Sodium Level 139, Potassium Level 3.7, Chloride Level 108H, Carbon Dioxide Level 22, Anion Gap 9, Blood Urea Nitrogen 17, Creatinine 1.12, Estimat Glomerular Filtration Rate 46, BUN/Creatinine Ratio 15, Glucose Level 98, Calcium Level 8.2L, White Blood Count 9.3, Red Blood Count 3.00L, Mean Corpuscular Volume 95, Mean Corpuscular Hemoglobin 31, Mean Corpuscular Hemoglobin Concent 33, Red Cell Distribution Width 13.5, Platelet Count 171, Mean Platelet Volume 10.7, Immature Granulocyte % (Auto) 0, Neutrophils (%) (Auto) 75, Lymphocytes (%) (Auto) 13, Monocytes (%) (Auto) 12, Eosinophils (%) (Auto) 1, Basophils (%) (Auto) 0, Neutrophils # (Auto) 6.9, Lymphocytes # (Auto) 1.2, Monocytes # (Auto) 1.1H, Eosinophils # (Auto) 0.1, Basophils # (Auto) 0.0, Immature Granulocyte # (Auto) 0.0 Microbiology 02/05/21 MRSA Screen - Final, Complete MRSA not isolated Assessment/Plan Assessment/Plan (1) Atrial fibrillation Status: Chronic Assessment & Plan: On rivaroxaban at home, holding due to surgery, will resume when okay with Surgery (2) Intertrochanteric fracture of left hip Status: Acute Assessment & Plan: s/p repair per Ortho on 02/06. Qualifiers: Qualified Codes: S72.145A - Nondisplaced intertrochanteric fracture of left femur, initial encounter for closed fracture (3) Hypertension Status: Acute Assessment & Plan: Currently hypotensive, holding home medications Qualifiers: Qualified Codes: I10 - Essential (primary) hypertension (4) JACQUI (acute kidney injury) Status: Resolved (5) Hypotension Status: Acute Assessment & Plan: Increase IVF rate, monitor closely, is asymptomatic. (6) History of endometrial cancer Status: Chronic (7) Coronary artery disease Status: Chronic REBEKAH WILBURN MD Feb 07, 2021 16:05
[2021-02-07 19:33] VITALS: BP 135/73
[2021-02-07 23:00] VITALS: BP 110/54
[2021-02-08] MEDS: NS IV 1000 ML 1,000 ML IV SCH ×2 (02:46→12:33)
[2021-02-08 03:23] VITALS: BP 136/61
[2021-02-08 06:20] LABS: HEMOGLOBIN 7.6 g/dL (11.5-16.0); MEAN PLATELET VOLUME 10.9 fL (9.0-12.2); WHITE BLOOD COUNT 6.7 10^3/uL (4.3-11.0)
[2021-02-08 06:31] LABS: POTASSIUM 3.5 MMOL/L (3.6-5.0)
[2021-02-08 06:32] LABS: CALCIUM 7.9 MG/DL (8.5-10.1)
[2021-02-08 06:37] LABS: CREATININE SERUM 0.85 MG/DL (0.60-1.30)
--- NOTE | 2021-02-08 07:06 | Progress Note ---
Standard Progress Note Progress Notes/Assess & Plan Date Seen by a Provider: Feb 08, 2021 Time Seen by a Provider: 07:05 Progress/Assessment & Plan confused to date no complaints Laboratory Tests Test 02/06/21 18:36 02/07/21 05:44 Range/Units Glucometer 142 H 70-110 MG/DL Hemoglobin 8.7 #L 11.5-16.0 g/dL Hematocrit 27 L 35-52 % Sodium Level 138 135-145 MMOL/L Potassium Level 3.9 3.6-5.0 MMOL/L Chloride Level 108 H 98-107 MMOL/L Carbon Dioxide Level 23 21-32 MMOL/L Anion Gap 7 5-14 MMOL/L Blood Urea Nitrogen 17 7-18 MG/DL Creatinine 1.20 0.60-1.30 MG/DL Estimat Glomerular Filtration Rate 43 BUN/Creatinine Ratio 14 Glucose Level 91 70-105 MG/DL Calcium Level 7.9 L 8.5-10.1 MG/DL Vital Signs Date Time Temp Pulse Resp B/P (MAP) Pulse Ox O2 Delivery O2 Flow Rate FiO2 02/07/21 04:22 36.4 82 16 106/55 (72) 98 Nasal Cannula 2.00 02/07/21 01:12 70 02/06/21 23:46 36.6 94 18 110/53 (72) 98 Nasal Cannula 2.00 02/06/21 21:34 91 20 107/54 (71) 97 Nasal Cannula 2.00 02/06/21 21:16 Nasal Cannula 2.00 02/06/21 21:12 97 Nasal Cannula 2.00 02/06/21 19:52 36.3 90 20 86/48 (61) 97 Nasal Cannula 2.00 02/06/21 17:00 84 02/06/21 16:58 97 Nasal Cannula 2.00 02/06/21 15:59 36.8 117 20 101/49 (66) 97 Nasal Cannula 2.00 02/06/21 12:45 103 02/06/21 11:43 36.4 94 20 112/59 (76) 97 Nasal Cannula 2.00 02/06/21 11:00 94 Nasal Cannula 2.00 02/06/21 10:15 95 Nasal Cannula 2.00 02/06/21 10:11 36.8 90 12 137/62 (87) 85 Room Air 02/06/21 10:00 Room Air 02/06/21 10:00 36.3 18 136/78 (97) 94 Room Air 02/06/21 09:50 18 133/62 (85) 94 Room Air 02/06/21 09:49 Room Air 02/06/21 09:45 Room Air 02/06/21 09:40 18 132/73 (92) 97 OxyMask 1 02/06/21 09:37 OxyMask 3 02/06/21 09:36 OxyMask 4 02/06/21 09:30 18 143/78 (99) 100 OxyMask 4 02/06/21 09:30 OxyMask 4 02/06/21 09:20 18 155/78 (103) 100 OxyMask 6 02/06/21 09:20 OxyMask 6 02/06/21 09:10 18 163/78 (106) 100 OxyMask 6 02/06/21 09:08 OxyMask 6 02/06/21 09:08 36.5 16 160/86 (110) 97 OxyMask 6 02/06/21 07:57 36.7 86 20 118/57 (77) 97 Room Air I & O 02/07/21 07:00 Intake Total 630 ml Output Total 885 ml Balance -255 ml L hip dressing intact. Intact DF and PF of toes and ankle with grossly intact sensation throughout. 2 plus DP pulse s/p L hip Im gilma PT/OT ARU? Final Diagnosis no complaints Vital Signs Date Time Temp Pulse Resp B/P (MAP) Pulse Ox O2 Delivery O2 Flow Rate FiO2 02/08/21 03:23 37.1 99 20 136/61 (86) 92 Room Air 02/08/21 01:19 90 02/07/21 23:00 36.4 98 20 110/54 (72) 92 Room Air 02/07/21 21:56 95 Nasal Cannula 2.00 02/07/21 21:17 Nasal Cannula 2.00 02/07/21 19:33 37.6 117 20 135/73 (93) 94 Room Air 02/07/21 19:00 104 02/07/21 16:00 36.9 110 20 118/56 (76) 95 Room Air 02/07/21 12:06 96 02/07/21 11:17 36.2 98 20 81/51 (61) 96 Room Air 02/07/21 08:15 Nasal Cannula 2.00 02/07/21 08:13 36.3 85 20 94/48 (63) 98 Nasal Cannula 2.00 I & O 02/08/21 06:59 Intake Total 2180 ml Output Total 875 ml Balance 1305 ml Laboratory Tests Test 02/07/21 15:25 02/08/21 05:15 02/08/21 06:16 Range/Units White Blood Count 9.3 6.7 4.3-11.0 10^3/uL Red Blood Count 3.00 L 2.52 L 3.80-5.11 10^6/uL Hemoglobin 9.3 L 7.6 L 11.5-16.0 g/dL Hematocrit 29 L 24 L 35-52 % Mean Corpuscular Volume 95 93 80-99 fL Mean Corpuscular Hemoglobin 31 30 25-34 pg Mean Corpuscular Hemoglobin Concent 33 32 32-36 g/dL Red Cell Distribution Width 13.5 13.1 10.0-14.5 % Platelet Count 171 129 L 130-400 10^3/uL Mean Platelet Volume 10.7 10.9 9.0-12.2 fL Immature Granulocyte % (Auto) 0 % Neutrophils (%) (Auto) 75 42-75 % Lymphocytes (%) (Auto) 13 12-44 % Monocytes (%) (Auto) 12 0-12 % Eosinophils (%) (Auto) 1 0-10 % Basophils (%) (Auto) 0 0-10 % Neutrophils # (Auto) 6.9 1.8-7.8 X 10^3 Lymphocytes # (Auto) 1.2 1.0-4.0 X 10^3 Monocytes # (Auto) 1.1 H 0.0-1.0 X 10^3 Eosinophils # (Auto) 0.1 0.0-0.3 10^3/uL Basophils # (Auto) 0.0 0.0-0.1 10^3/uL Immature Granulocyte # (Auto) 0.0 0.0-0.1 10^3/uL Sodium Level 139 137 135-145 MMOL/L Potassium Level 3.7 3.5 L 3.6-5.0 MMOL/L Chloride Level 108 H 110 H 98-107 MMOL/L Carbon Dioxide Level 22 19 L 21-32 MMOL/L Anion Gap 9 8 5-14 MMOL/L Blood Urea Nitrogen 17 13 7-18 MG/DL Creatinine 1.12 0.85 0.60-1.30 MG/DL Estimat Glomerular Filtration Rate 46 64 BUN/Creatinine Ratio 15 15 Glucose Level 98 100 70-105 MG/DL Calcium Level 8.2 L 7.9 L 8.5-10.1 MG/DL Percent Immature Platelet Fraction 3.9 0.0-7.6 % L ;hip incision clean and dry. No calf tenderness s/p L hip IM gilma PT [facility] placement BLAIR MOYA MD Feb 08, 2021 07:05
[2021-02-08 07:35] VITALS: BP 147/73
[2021-02-08] MEDS: ENOXAPARIN 40 MG/0.4 ML (LOVENOX) SYR SC SCH (08:19)
[2021-02-08] MEDS: VITAMIN D3 125 MCG (5,000 UNITS) CAPSULE PO SCH (08:20)
[2021-02-08] MEDS: ASPIRIN E.C. 81 MG (ECOTRIN) TAB PO SCH ×2 (08:20→09:03)
[2021-02-08] MEDS: MULTIVIT W/MINERALS TAB (THERAGRAN M) PO SCH (08:20)
[2021-02-08] MEDS: HYDROcodone/APAP 7.5 MG/325 MG (LORTAB, LORCET PLUS) TABLET PO PRN (08:27)
--- NOTE | 2021-02-08 09:35 | Physical Therapy Daily Note ---
PT Daily Note-Current Subjective Patient in bed pre tx, agrees to PT, has 4/10 pain in left leg. Appearance Patient in recliner post tx with nurse call, phone, tray, all needs met. Mental Status Patient Orientation: Person, Place, Situation Attachments: James Catheter, IV Transfers SCALE: Activities may be completed with or without assistive devices. 2-Ppaaxsjlll-ohnwuzl completes the activity by him/herself with no assistance from a helper. 5-Set-up or Clean-up Assistance-helper sets up or cleans up; patient completes activity. [place] assists only prior to or following the activity. 4-Supervision or Touching Assistance-helper provides verbal cues and/or touching/steadying and/or contact guard assistance as patient completes activity. Assistance may be provided throughout the activity or intermittently. 3-Partial/Moderate Assistance-helper does LESS THAN HALF the effort. [place] lifts, holds or supports trunk or limbs, but provides less than half the effort. 2-Substantial/Maximal Assistance-helper does MORE THAN HALF the effort. [place] lifts or holds trunk or limbs and provides more than half the effort. 1-Wqdewxwbf-hjwgaq does ALL the effort. Patient does none of the effort to complete the activity. Or, the assistance of 2 or more helpers is required for the patient to complete the activity. If activity was not attempted, code reason: 7-Patient Refused. 9-Not Applicable-not attempted and the patient did not perform the activity before the current illness, exacerbation or injury. 10-Not Attempted due to Environmental Limitations-(lack of equipment, weather restraints, etc.). 88-Not Attempted due to Medical Conditions or Safety Concerns. Roll Left & Right (QC): 3 Lying to Sitting/Side of Bed(Q: 2 Sit to Stand (QC): 3 Chair/Azc-ct-Zrfmc Xfer(QC): 4 Max assist for supine to sit today, patient states she is stiff and having trouble moving Weight Bearing Right Lower Extremity: Right Full Weight Bearing Left Lower Extremity: Left Partial Weight Bearing Gait Training Distance: 5' Gait Persons Needed: 1 Gait Assistive Device: FWW Patient ambulates from the bed to the recliner about 5', she bears weight through her arms to comply with PWB on the right side but it is very difficult for her. Exercises Seated Therapy Exercises: Ankle pumps, Long arc quads Seated Reps: 20 Treatments bed mobility and transfers, ambulation, LE strengthening Assessment Current Status: Poor Progress needed more assist with supine <-> sit PT Group Home Goals Tmh Teacher Goals PT Tmh Teacher Goals Time Frame: Feb 14, 2021 Roll Left & Right (QC): 4 Sit to Lying (QC): 4 Lying-Sitting on Side/Bed(QC): 4 Sit to Stand (QC): 4 (SBA) Chair/Yst-jy-Gsmlj Xfer(QC): 4 (SBA) Walk 10 feet (QC): 4 (SBA) Walk 50ft with 2 Turns (QC): 4 (SBA) PT Plan Problem List Problem List: Activity Tolerance, Functional Strength, Safety, Balance, Gait, Transfer, Bed Mobility, ROM Treatment/Plan Treatment Plan: Continue Plan of Care Treatment Plan: Bed Mobility, Education, Functional Activity Zafar, Functional Strength, Gait, Safety, Therapeutic Exercise, Transfers Treatment Duration: Feb 14, 2021 Frequency: 11 times per week Estimated Hrs Per Day: .25 hour per day Patient and/or Family Agrees t: Yes Safety Risks/Education Patient Education: Gait Training, Transfer Techniques, Reviewed Precautions, Correct Positioning, Safety Issues Teaching Recipient: Patient Teaching Methods: Demonstration, Discussion Response to Teaching: Reinforcement Needed Time/GCodes Time In: 908 Time Out: 922 Total Billed Treatment Time: 14 Total Billed Treatment 1 visit FA 14' CHRIS GOLD PT Feb 08, 2021 09:35
[2021-02-08] MEDS ORDERED: KCL 20 MEQ TAB (K-DUR) PO ONE (11:15)
--- NOTE | 2021-02-08 11:24 | Progress Note ---
Subjective Subjective/Events-last exam Feeling better today, pain was less with PT than it was yesterday. Objective Exam Last Set of Vital Signs Vital Signs Date Time Temp Pulse Resp B/P (MAP) Pulse Ox O2 Delivery O2 Flow Rate FiO2 02/08/21 08:56 96 Room Air 02/08/21 07:35 36.4 107 20 147/73 (97) 02/07/21 21:56 2.00 02/05/21 20:04 21 Capillary Refill : NONELess Than 3 Seconds I&O Intake and Output 02/08/21 00:00 Intake Total 1030 ml Output Total 640 ml Balance 390 ml Intake Oral 1030 ml Output Urine Total 640 ml General: Alert, No Acute Distress Lungs: Clear to Auscultation, Normal Air Movement Heart: Regular Rate, No Murmurs Neuro: Other (oriented to self and location, able to state date by reading off the board) Psych/Mental Status: Mood NL Results/Procedures Lab Laboratory Tests 02/07/21 15:25: White Blood Count 9.3, Red Blood Count 3.00L, Hemoglobin 9.3L, Hematocrit 29L, Mean Corpuscular Volume 95, Mean Corpuscular Hemoglobin 31, Mean Corpuscular Hemoglobin Concent 33, Red Cell Distribution Width 13.5, Platelet Count 171, Mean Platelet Volume 10.7, Immature Granulocyte % (Auto) 0, Neutrophils (%) (Auto) 75, Lymphocytes (%) (Auto) 13, Monocytes (%) (Auto) 12, Eosinophils (%) (Auto) 1, Basophils (%) (Auto) 0, Neutrophils # (Auto) 6.9, Lymphocytes # (Auto) 1.2, Monocytes # (Auto) 1.1H, Eosinophils # (Auto) 0.1, Basophils # (Auto) 0.0, Immature Granulocyte # (Auto) 0.0, Sodium Level 139, Potassium Level 3.7, Chloride Level 108H, Carbon Dioxide Level 22, Anion Gap 9, Blood Urea Nitrogen 17, Creatinine 1.12, Estimat Glomerular Filtration Rate 46, BUN/Creatinine Ratio 15, Glucose Level 98, Calcium Level 8.2L 02/08/21 05:15: Sodium Level 137, Potassium Level 3.5L, Chloride Level 110H, Carbon Dioxide Level 19L, Anion Gap 8, Blood Urea Nitrogen 13, Creatinine 0.85, Estimat Glomerular Filtration Rate 64, BUN/Creatinine Ratio 15, Glucose Level 100, Calcium Level 7.9L 02/08/21 06:16: White Blood Count 6.7, Red Blood Count 2.52L, Hemoglobin 7.6L, Hematocrit 24L, Mean Corpuscular Volume 93, Mean Corpuscular Hemoglobin 30, Mean Corpuscular Hemoglobin Concent 32, Red Cell Distribution Width 13.1, Platelet Count 129L, Mean Platelet Volume 10.9, Percent Immature Platelet Fraction 3.9 Microbiology 02/05/21 MRSA Screen - Final, Complete MRSA not isolated Assessment/Plan Assessment/Plan (1) Atrial fibrillation Status: Chronic Assessment & Plan: On rivaroxaban at home, holding due to surgery, will resume when okay with Surgery (2) Intertrochanteric fracture of left hip Status: Acute Assessment & Plan: s/p repair per Ortho on 02/06. Qualifiers: Qualified Codes: S72.145A - Nondisplaced intertrochanteric fracture of left femur, initial encounter for closed fracture (3) Hypertension Status: Acute Assessment & Plan: hypotensive on admit, holding home medications 02/08 BP increasing will start meds one at a time Qualifiers: Qualified Codes: I10 - Essential (primary) hypertension (4) JACQUI (acute kidney injury) Status: Resolved (5) Hypotension Status: Resolved Assessment & Plan: Increase IVF rate, monitor closely, is asymptomatic. (6) History of endometrial cancer Status: Chronic (7) Coronary artery disease Status: Chronic REBEKAH WILBURN MD Feb 08, 2021 11:24
[2021-02-08 12:00] VITALS: BP 129/59
--- NOTE | 2021-02-08 13:59 | Physical Therapy Daily Note ---
PT Daily Note-Current Subjective Patient in recliner pre tx, agrees to PT, has little pain at rest per patient. Appearance Patient in recliner post tx with nurse call, phone, tray, all needs met, chair alarm on. Mental Status Patient Orientation: Person, Place, Situation Attachments: James Catheter, IV Transfers SCALE: Activities may be completed with or without assistive devices. 5-Avrqwnwkzp-koomoxo completes the activity by him/herself with no assistance from a helper. 5-Set-up or Clean-up Assistance-helper sets up or cleans up; patient completes activity. [place] assists only prior to or following the activity. 4-Supervision or Touching Assistance-helper provides verbal cues and/or touching/steadying and/or contact guard assistance as patient completes activity. Assistance may be provided throughout the activity or intermittently. 3-Partial/Moderate Assistance-helper does LESS THAN HALF the effort. [place] lifts, holds or supports trunk or limbs, but provides less than half the effort. 2-Substantial/Maximal Assistance-helper does MORE THAN HALF the effort. [place] lifts or holds trunk or limbs and provides more than half the effort. 4-Jrxbmwyhg-nqmzuw does ALL the effort. Patient does none of the effort to complete the activity. Or, the assistance of 2 or more helpers is required for the patient to complete the activity. If activity was not attempted, code reason: 7-Patient Refused. 9-Not Applicable-not attempted and the patient did not perform the activity before the current illness, exacerbation or injury. 10-Not Attempted due to Environmental Limitations-(lack of equipment, weather restraints, etc.). 88-Not Attempted due to Medical Conditions or Safety Concerns. Sit to Stand (QC): 4 Chair/Jua-ny-Bluxv Xfer(QC): 4 Weight Bearing Right Lower Extremity: Right Full Weight Bearing Left Lower Extremity: Left Partial Weight Bearing Gait Training Distance: 10' Walk 10 feet (QC): 4 Gait Persons Needed: 1 Gait Assistive Device: FWW cues for PWB on left leg, cues for hand placement and safety for sit <-> stand, ambulation was very slow, had more pain Exercises Seated Therapy Exercises: Ankle pumps, Long arc quads Seated Reps: 20 Treatments ambulation, LE strengthening Assessment Current Status: Fair Progress slowly improving ambulation PT Booth Cashier Goals Booth Cashier Goals PT Longterm Goals Time Frame: Feb 14, 2021 Roll Left & Right (QC): 4 Sit to Lying (QC): 4 Lying-Sitting on Side/Bed(QC): 4 Sit to Stand (QC): 4 (SBA) Chair/Jql-td-Ufvcn Xfer(QC): 4 (SBA) Walk 10 feet (QC): 4 (SBA) Walk 50ft with 2 Turns (QC): 4 (SBA) PT Plan Problem List Problem List: Activity Tolerance, Functional Strength, Safety, Balance, Gait, Transfer, Bed Mobility, ROM Treatment/Plan Treatment Plan: Continue Plan of Care Treatment Plan: Bed Mobility, Education, Functional Activity Zafar, Functional Strength, Gait, Safety, Therapeutic Exercise, Transfers Treatment Duration: Feb 14, 2021 Frequency: 11 times per week Estimated Hrs Per Day: .25 hour per day Patient and/or Family Agrees t: Yes Safety Risks/Education Patient Education: Gait Training, Transfer Techniques, Reviewed Precautions, Correct Positioning, Safety Issues Teaching Recipient: Patient Teaching Methods: Demonstration, Discussion Response to Teaching: Reinforcement Needed Time/GCodes Time In: 1313 Time Out: 1327 Total Billed Treatment Time: 14 Total Billed Treatment 1 visit FA 14' CHRIS GOLD PT Feb 08, 2021 13:59
[2021-02-08 16:00] VITALS: BP 177/83
[2021-02-08 20:00] VITALS: BP 143/68
[2021-02-08] MEDS: SENNA W/DOCUSATE (SENOKOT S) TABLET PO SCH (21:00)
[2021-02-09] VITALS (7 sets, daily range): BP systolic 142–193; BP diastolic 77–84
[2021-02-09] MEDS: NS IV 1000 ML 1,000 ML IV SCH ×2 (00:21→10:44)
[2021-02-09 06:29] LABS: HEMOGLOBIN 7.1 g/dL (11.5-16.0); WHITE BLOOD COUNT 6.2 10^3/uL (4.3-11.0)
[2021-02-09 06:44] LABS: CALCIUM 7.8 MG/DL (8.5-10.1); CREATININE SERUM 0.79 MG/DL (0.60-1.30); POTASSIUM 3.6 MMOL/L (3.6-5.0)
[2021-02-09] MEDS: VITAMIN D3 125 MCG (5,000 UNITS) CAPSULE PO SCH (09:24)
[2021-02-09] MEDS: SENNA W/DOCUSATE (SENOKOT S) TABLET PO SCH ×2 (09:24→20:42)
[2021-02-09] MEDS: MULTIVIT W/MINERALS TAB (THERAGRAN M) PO SCH (09:24)
[2021-02-09] MEDS: FERROUS SULF 325 MG (IRON) TAB PO SCH ×2 (09:25→17:33)
[2021-02-09] MEDS: meTOprolol SUCCINATE 100 MG (TOPROL XL) TAB PO SCH (09:25)
[2021-02-09] MEDS: ASPIRIN E.C. 81 MG (ECOTRIN) TAB PO SCH (09:25)
[2021-02-09] MEDS: ENOXAPARIN 40 MG/0.4 ML (LOVENOX) SYR SC SCH (09:32)
--- NOTE | 2021-02-09 09:41 | Physical Therapy Daily Note ---
PT Daily Note-Current Subjective Patient in bed pre tx, agrees to PT, has no complaints of pain at rest. Appearance Patient in recliner post tx with nurse call, phone, tray, chair alarm on. Mental Status Patient Orientation: Person, Place, Situation Attachments: James Catheter, IV Transfers SCALE: Activities may be completed with or without assistive devices. 2-Ygmkyuiikq-hrdzcks completes the activity by him/herself with no assistance from a helper. 5-Set-up or Clean-up Assistance-helper sets up or cleans up; patient completes activity. [place] assists only prior to or following the activity. 4-Supervision or Touching Assistance-helper provides verbal cues and/or touching/steadying and/or contact guard assistance as patient completes a ctivity. Assistance may be provided throughout the activity or intermittently. 3-Partial/Moderate Assistance-helper does LESS THAN HALF the effort. [place] lifts, holds or supports trunk or limbs, but provides less than half the effort. 2-Substantial/Maximal Assistance-helper does MORE THAN HALF the effort. [place] lifts or holds trunk or limbs and provides more than half the effort. 0-Vrhrvjogn-dyvxay does ALL the effort. Patient does none of the effort to complete the activity. Or, the assistance of 2 or more helpers is required for the patient to complete the activity. If activity was not attempted, code reason: 7-Patient Refused. 9-Not Applicable-not attempted and the patient did not perform the activity before the current illness, exacerbation or injury. 10-Not Attempted due to Environmental Limitations-(lack of equipment, weather restraints, etc.). 88-Not Attempted due to Medical Conditions or Safety Concerns. Roll Left & Right (QC): 3 Lying to Sitting/Side of Bed(Q: 3 Sit to Stand (QC): 3 Chair/Ohp-eu-Dyuge Xfer(QC): 4 Weight Bearing Right Lower Extremity: Right Full Weight Bearing Left Lower Extremity: Left Partial Weight Bearing Gait Training Distance: 15' Walk 10 feet (QC): 4 Gait Persons Needed: 1 Gait Assistive Device: FWW very slow, antalgic, compliant with PWB on the left leg, poor step through on the right side Exercises Seated Therapy Exercises: Ankle pumps, Long arc quads Seated Reps: 20 Treatments bed mobility and transfers, ambulation, LE strengthening Assessment Current Status: Fair Progress slow improvement with functional mobility PT Assembler [employer] Spider Goals Assembler [employer] Spider Goals PT Prison Goals Time Frame: Feb 14, 2021 Roll Left & Right (QC): 4 Sit to Lying (QC): 4 Lying-Sitting on Side/Bed(QC): 4 Sit to Stand (QC): 4 (SBA) Chair/Nwh-dl-Znrkg Xfer(QC): 4 (SBA) Walk 10 feet (QC): 4 (SBA) Walk 50ft with 2 Turns (QC): 4 (SBA) PT Plan Problem List Problem List: Activity Tolerance, Functional Strength, Safety, Balance, Gait, Transfer, Bed Mobility, ROM Treatment/Plan Treatment Plan: Continue Plan of Care Treatment Plan: Bed Mobility, Education, Functional Activity Zafar, Functional Strength, Gait, Safety, Therapeutic Exercise, Transfers Treatment Duration: Feb 14, 2021 Frequency: 11 times per week Estimated Hrs Per Day: .25 hour per day Patient and/or Family Agrees t: Yes Safety Risks/Education Patient Education: Gait Training, Transfer Techniques, Reviewed Precautions, Correct Positioning, Safety Issues Teaching Recipient: Patient Teaching Methods: Demonstration, Discussion Response to Teaching: Reinforcement Needed Time/GCodes Time In: 902 Time Out: 919 Total Billed Treatment Time: 17 Total Billed Treatment 1 visit FA CHRIS GUTIERREZ PT Feb 09, 2021 09:41
--- NOTE | 2021-02-09 11:33 | Progress Note ---
Standard Progress Note Progress Notes/Assess & Plan Date Seen by a Provider: Feb 09, 2021 Time Seen by a Provider: 11:32 Progress/Assessment & Plan confused to date no complaints Laboratory Tests Test 02/06/21 18:36 02/07/21 05:44 Range/Units Glucometer 142 H 70-110 MG/DL Hemoglobin 8.7 #L 11.5-16.0 g/dL Hematocrit 27 L 35-52 % Sodium Level 138 135-145 MMOL/L Potassium Level 3.9 3.6-5.0 MMOL/L Chloride Level 108 H 98-107 MMOL/L Carbon Dioxide Level 23 21-32 MMOL/L Anion Gap 7 5-14 MMOL/L Blood Urea Nitrogen 17 7-18 MG/DL Creatinine 1.20 0.60-1.30 MG/DL Estimat Glomerular Filtration Rate 43 BUN/Creatinine Ratio 14 Glucose Level 91 70-105 MG/DL Calcium Level 7.9 L 8.5-10.1 MG/DL Vital Signs Date Time Temp Pulse Resp B/P (MAP) Pulse Ox O2 Delivery O2 Flow Rate FiO2 02/07/21 04:22 36.4 82 16 106/55 (72) 98 Nasal Cannula 2.00 02/07/21 01:12 70 02/06/21 23:46 36.6 94 18 110/53 (72) 98 Nasal Cannula 2.00 02/06/21 21:34 91 20 107/54 (71) 97 Nasal Cannula 2.00 02/06/21 21:16 Nasal Cannula 2.00 02/06/21 21:12 97 Nasal Cannula 2.00 02/06/21 19:52 36.3 90 20 86/48 (61) 97 Nasal Cannula 2.00 02/06/21 17:00 84 02/06/21 16:58 97 Nasal Cannula 2.00 02/06/21 15:59 36.8 117 20 101/49 (66) 97 Nasal Cannula 2.00 02/06/21 12:45 103 02/06/21 11:43 36.4 94 20 112/59 (76) 97 Nasal Cannula 2.00 02/06/21 11:00 94 Nasal Cannula 2.00 02/06/21 10:15 95 Nasal Cannula 2.00 02/06/21 10:11 36.8 90 12 137/62 (87) 85 Room Air 02/06/21 10:00 Room Air 02/06/21 10:00 36.3 18 136/78 (97) 94 Room Air 02/06/21 09:50 18 133/62 (85) 94 Room Air 02/06/21 09:49 Room Air 02/06/21 09:45 Room Air 02/06/21 09:40 18 132/73 (92) 97 OxyMask 1 02/06/21 09:37 OxyMask 3 02/06/21 09:36 OxyMask 4 02/06/21 09:30 18 143/78 (99) 100 OxyMask 4 02/06/21 09:30 OxyMask 4 02/06/21 09:20 18 155/78 (103) 100 OxyMask 6 02/06/21 09:20 OxyMask 6 02/06/21 09:10 18 163/78 (106) 100 OxyMask 6 02/06/21 09:08 OxyMask 6 02/06/21 09:08 36.5 16 160/86 (110) 97 OxyMask 6 02/06/21 07:57 36.7 86 20 118/57 (77) 97 Room Air I & O 02/07/21 07:00 Intake Total 630 ml Output Total 885 ml Balance -255 ml L hip dressing intact. Intact DF and PF of toes and ankle with grossly intact sensation throughout. 2 plus DP pulse s/p L hip Im gilma PT/OT ARU? Final Diagnosis no complaints Vital Signs Date Time Temp Pulse Resp B/P (MAP) Pulse Ox O2 Delivery O2 Flow Rate FiO2 02/09/21 09:27 Room Air 02/09/21 08:38 Room Air 02/09/21 08:00 36.8 101 18 142/77 (98) 90 Room Air 02/09/21 07:00 93 02/09/21 04:00 36.4 104 17 145/83 (103) 94 Room Air 02/09/21 01:23 90 02/09/21 00:00 36.7 101 18 147/80 (102) 97 Room Air 02/08/21 20:44 96 Room Air 0.00 02/08/21 20:00 38.0 121 20 143/68 (93) 96 Room Air 02/08/21 19:50 Room Air 02/08/21 19:00 122 02/08/21 16:00 36.6 101 20 177/83 (114) 99 Room Air 02/08/21 13:00 99 02/08/21 12:00 36.4 98 18 129/59 (82) 97 Room Air I & O 02/09/21 07:00 Intake Total 4200 ml Output Total 1225 ml Balance 2975 ml Laboratory Tests Test 02/09/21 06:05 Range/Units White Blood Count 6.2 4.3-11.0 10^3/uL Red Blood Count 2.29 L 3.80-5.11 10^6/uL Hemoglobin 7.1 L 11.5-16.0 g/dL Hematocrit 21 L 35-52 % Mean Corpuscular Volume 93 80-99 fL Mean Corpuscular Hemoglobin 31 25-34 pg Mean Corpuscular Hemoglobin Concent 33 32-36 g/dL Red Cell Distribution Width 13.1 10.0-14.5 % Platelet Count 137 130-400 10^3/uL Mean Platelet Volume 11.0 9.0-12.2 fL Percent Immature Platelet Fraction 3.8 0.0-7.6 % Sodium Level 138 135-145 MMOL/L Potassium Level 3.6 3.6-5.0 MMOL/L Chloride Level 111 H 98-107 MMOL/L Carbon Dioxide Level 18 L 21-32 MMOL/L Anion Gap 9 5-14 MMOL/L Blood Urea Nitrogen 13 7-18 MG/DL Creatinine 0.79 0.60-1.30 MG/DL Estimat Glomerular Filtration Rate 69 BUN/Creatinine Ratio 16 Glucose Level 95 70-105 MG/DL Calcium Level 7.8 L 8.5-10.1 MG/DL L hip incision clean and dry no calf tenderness s/p L hip IM gilma PT/OT await placement BLAIR MOYA MD Feb 09, 2021 11:33
--- NOTE | 2021-02-09 13:57 | Progress Note ---
Subjective Subjective/Events-last exam States feeling pretty well, still has pain with PT but is doing okay. Objective Exam Last Set of Vital Signs Vital Signs Date Time Temp Pulse Resp B/P (MAP) Pulse Ox O2 Delivery O2 Flow Rate FiO2 02/09/21 12:00 37.2 108 20 150/81 (104) 98 Room Air 02/08/21 20:44 0.00 02/05/21 20:04 21 Capillary Refill : NONELess Than 3 Seconds I&O Intake and Output 02/09/21 00:00 Intake Total 4250 ml Output Total 1325 ml Balance 2925 ml Intake Oral 1250 ml IV Total 3000 ml Output Urine Total 1325 ml # Bowel Movements 1 General: Alert, No Acute Distress Lungs: Clear to Auscultation, Normal Air Movement Heart: Other (tachycardic) Neuro: Normal Speech, Other (oriented to self and date, but states senior care as location) Psych/Mental Status: Mood NL Results/Procedures Lab Laboratory Tests 02/09/21 06:05: White Blood Count 6.2, Red Blood Count 2.29L, Hemoglobin 7.1L, Hematocrit 21L, Mean Corpuscular Volume 93, Mean Corpuscular Hemoglobin 31, Mean Corpuscular Hemoglobin Concent 33, Red Cell Distribution Width 13.1, Platelet Count 137, Mean Platelet Volume 11.0, Percent Immature Platelet Fraction 3.8, Sodium Level 138, Potassium Level 3.6, Chloride Level 111H, Carbon Dioxide Level 18L, Anion Gap 9, Blood Urea Nitrogen 13, Creatinine 0.79, Estimat Glomerular Filtration Rate 69, BUN/Creatinine Ratio 16, Glucose Level 95, Calcium Level 7.8L Microbiology 02/05/21 MRSA Screen - Final, Complete MRSA not isolated Assessment/Plan Assessment/Plan (1) Atrial fibrillation Status: Chronic Assessment & Plan: On rivaroxaban at home, holding due to surgery, will resume when okay with Surgery (2) Intertrochanteric fracture of left hip Status: Acute Assessment & Plan: s/p repair per Ortho on 02/06. 02/09 awaiting SNF placement, d/c [facility] today Qualifiers: Qualified Codes: S72.145A - Nondisplaced intertrochanteric fracture of left femur, initial encounter for closed fracture (3) Hypertension Status: Acute Assessment & Plan: hypotensive on admit, holding home medications 02/08 BP increasing will start meds one at a time Qualifiers: Qualified Codes: I10 - Essential (primary) hypertension (4) JACQUI (acute kidney injury) Status: Resolved (5) Hypotension Status: Resolved Assessment & Plan: Increased IVF rate, monitor closely, is asymptomatic. (6) History of endometrial cancer Status: Chronic (7) Coronary artery disease Status: Chronic REBEKAH WILBURN MD Feb 09, 2021 13:57
--- NOTE | 2021-02-09 14:01 | Physical Therapy Daily Note ---
PT Daily Note-Current Subjective Patient in recliner pre tx, agrees to PT, says she has severe pain in her left hip and would like to get back to bed. Pain is unrated. Appearance Patient in bed post tx with nurse call, phone, tray, all needs met, bed alarm on. Mental Status Patient Orientation: Person, Confused, Place, Situation Attachments: James Catheter Transfers SCALE: Activities may be completed with or without assistive devices. 6-Fpfyqqrqnt-sdmbicb completes the activity by him/herself with no assistance from a helper. 5-Set-up or Clean-up Assistance-helper sets up or cleans up; patient completes activity. [place] assists only prior to or following the activity. 4-Supervision or Touching Assistance-helper provides verbal cues and/or touching/steadying and/or contact guard assistance as patient completes activity. Assistance may be provided throughout the activity or intermittently. 3-Partial/Moderate Assistance-helper does LESS THAN HALF the effort. [place] lifts, holds or supports trunk or limbs, but provides less than half the effort. 2-Substantial/Maximal Assistance-helper does MORE THAN HALF the effort. [place] lifts or holds trunk or limbs and provides more than half the effort. 9-Xqdoyizzl-xvgmvp does ALL the effort. Patient does none of the effort to complete the activity. Or, the assistance of 2 or more helpers is required for the patient to complete the activity. If activity was not attempted, code reason: 7-Patient Refused. 9-Not Applicable-not attempted and the patient did not perform the activity before the current illness, exacerbation or injury. 10-Not Attempted due to Environmental Limitations-(lack of equipment, weather restraints, etc.). 88-Not Attempted due to Medical Conditions or Safety Concerns. Roll Left & Right (QC): 3 Sit to Lying (QC): 3 Sit to Stand (QC): 3 Chair/Efx-up-Ceuqb Xfer(QC): 4 Weight Bearing Right Lower Extremity: Right Full Weight Bearing Left Lower Extremity: Left Partial Weight Bearing Gait Training Distance: 5' Gait Persons Needed: 1 Gait Assistive Device: FWW CGA, very painful, compliant with PWB of LLE Treatments bed mobility and transfers, ambulation Assessment Current Status: Poor Progress Pain prevented her from doing much this afternoon. PT Performance Manager Goals [facility] Goals PT Performance Manager Goals Time Frame: Feb 14, 2021 Roll Left & Right (QC): 4 Sit to Lying (QC): 4 Lying-Sitting on Side/Bed(QC): 4 Sit to Stand (QC): 4 (SBA) Chair/Quh-gt-Nrter Xfer(QC): 4 (SBA) Walk 10 feet (QC): 4 (SBA) Walk 50ft with 2 Turns (QC): 4 (SBA) PT Plan Problem List Problem List: Activity Tolerance, Functional Strength, Safety, Balance, Gait, Transfer, Bed Mobility, ROM Treatment/Plan Treatment Plan: Continue Plan of Care Treatment Plan: Bed Mobility, Education, Functional Activity Zafar, Functional Strength, Gait, Safety, Therapeutic Exercise, Transfers Treatment Duration: Feb 14, 2021 Frequency: 11 times per week Estimated Hrs Per Day: .25 hour per day Patient and/or Family Agrees t: Yes Safety Risks/Education Patient Education: Gait Training, Transfer Techniques, Reviewed Precautions, Correct Positioning, Safety Issues Teaching Recipient: Patient Teaching Methods: Demonstration, Discussion Response to Teaching: Reinforcement Needed Time/GCodes Time In: 1330 Time Out: 1345 Total Billed Treatment Time: 15 Total Billed Treatment 1 visit FA CHRIS SUNG PT Feb 09, 2021 14:01
[2021-02-09] MEDS: ALPRAZolam 0.25 MG (XANAX) TAB PO PRN (20:42)
[2021-02-10 00:09] VITALS: BP 153/67
[2021-02-10 03:37] VITALS: BP 137/86
[2021-02-10 07:51] VITALS: BP 137/86
[2021-02-10 08:00] VITALS: BP 152/75
--- NOTE | 2021-02-10 08:04 | Progress Note ---
Standard Progress Note Progress Notes/Assess & Plan Date Seen by a Provider: Feb 10, 2021 Time Seen by a Provider: 08:03 Progress/Assessment & Plan confused to date no complaints Laboratory Tests Test 02/06/21 18:36 02/07/21 05:44 Range/Units Glucometer 142 H 70-110 MG/DL Hemoglobin 8.7 #L 11.5-16.0 g/dL Hematocrit 27 L 35-52 % Sodium Level 138 135-145 MMOL/L Potassium Level 3.9 3.6-5.0 MMOL/L Chloride Level 108 H 98-107 MMOL/L Carbon Dioxide Level 23 21-32 MMOL/L Anion Gap 7 5-14 MMOL/L Blood Urea Nitrogen 17 7-18 MG/DL Creatinine 1.20 0.60-1.30 MG/DL Estimat Glomerular Filtration Rate 43 BUN/Creatinine Ratio 14 Glucose Level 91 70-105 MG/DL Calcium Level 7.9 L 8.5-10.1 MG/DL Vital Signs Date Time Temp Pulse Resp B/P (MAP) Pulse Ox O2 Delivery O2 Flow Rate FiO2 02/07/21 04:22 36.4 82 16 106/55 (72) 98 Nasal Cannula 2.00 02/07/21 01:12 70 02/06/21 23:46 36.6 94 18 110/53 (72) 98 Nasal Cannula 2.00 02/06/21 21:34 91 20 107/54 (71) 97 Nasal Cannula 2.00 02/06/21 21:16 Nasal Cannula 2.00 02/06/21 21:12 97 Nasal Cannula 2.00 02/06/21 19:52 36.3 90 20 86/48 (61) 97 Nasal Cannula 2.00 02/06/21 17:00 84 02/06/21 16:58 97 Nasal Cannula 2.00 02/06/21 15:59 36.8 117 20 101/49 (66) 97 Nasal Cannula 2.00 02/06/21 12:45 103 02/06/21 11:43 36.4 94 20 112/59 (76) 97 Nasal Cannula 2.00 02/06/21 11:00 94 Nasal Cannula 2.00 02/06/21 10:15 95 Nasal Cannula 2.00 02/06/21 10:11 36.8 90 12 137/62 (87) 85 Room Air 02/06/21 10:00 Room Air 02/06/21 10:00 36.3 18 136/78 (97) 94 Room Air 02/06/21 09:50 18 133/62 (85) 94 Room Air 02/06/21 09:49 Room Air 02/06/21 09:45 Room Air 02/06/21 09:40 18 132/73 (92) 97 OxyMask 1 02/06/21 09:37 OxyMask 3 02/06/21 09:36 OxyMask 4 02/06/21 09:30 18 143/78 (99) 100 OxyMask 4 02/06/21 09:30 OxyMask 4 02/06/21 09:20 18 155/78 (103) 100 OxyMask 6 02/06/21 09:20 OxyMask 6 02/06/21 09:10 18 163/78 (106) 100 OxyMask 6 02/06/21 09:08 OxyMask 6 02/06/21 09:08 36.5 16 160/86 (110) 97 OxyMask 6 02/06/21 07:57 36.7 86 20 118/57 (77) 97 Room Air I & O 02/07/21 07:00 Intake Total 630 ml Output Total 885 ml Balance -255 ml L hip dressing intact. Intact DF and PF of toes and ankle with grossly intact sensation throughout. 2 plus DP pulse s/p L hip Im gilma PT/OT ARU? Final Diagnosis no complaints Vital Signs Date Time Temp Pulse Resp B/P (MAP) Pulse Ox O2 Delivery O2 Flow Rate FiO2 02/10/21 07:51 36.3 102 95 21 02/10/21 07:48 95 Room Air 0.00 02/10/21 07:00 94 02/10/21 03:37 36.3 86 20 137/86 (103) 98 Room Air 02/10/21 01:00 97 02/10/21 00:09 36.8 79 20 153/67 (95) 96 Room Air 02/09/21 22:53 95 Room Air 02/09/21 20:58 Room Air 02/09/21 20:00 36.8 95 22 163/79 (107) 95 Room Air 02/09/21 17:50 38.0 90 20 172/79 (110) 95 Room Air 02/09/21 16:00 37.6 106 22 193/84 (120) 100 Room Air 02/09/21 13:00 93 02/09/21 12:00 37.2 108 20 150/81 (104) 98 Room Air 02/09/21 09:27 Room Air 02/09/21 08:38 Room Air I & O 02/10/21 07:00 Intake Total 2010 ml Output Total 1000 ml Balance 1010 ml L hip incision clean and dry. No calf tenderness s/p L hip IM gilma PT/OT await placement BLAIR MOYA MD Feb 10, 2021 08:04
[2021-02-10] MEDS ORDERED: [UNRECOGNIZED DRUG - OTHER] PO SCH (09:00)
[2021-02-10] MEDS ORDERED: lisINopril 20 MG (PRINIVIL) TABLET PO SCH (09:00)
[2021-02-10] MEDS ORDERED: HYDROCHLOROTHIAZIDE PO SCH (09:00)
[2021-02-10] MEDS ORDERED: BENAZEPRIL PO SCH (09:00)
[2021-02-10] MEDS: meTOprolol SUCCINATE 100 MG (TOPROL XL) TAB PO SCH (09:28)
[2021-02-10] MEDS: SENNA W/DOCUSATE (SENOKOT S) TABLET PO SCH (09:28)
[2021-02-10] MEDS: MULTIVIT W/MINERALS TAB (THERAGRAN M) PO SCH (09:28)
[2021-02-10] MEDS: ASPIRIN E.C. 81 MG (ECOTRIN) TAB PO SCH (09:28)
[2021-02-10] MEDS: FERROUS SULF 325 MG (IRON) TAB PO SCH (09:28)
[2021-02-10] MEDS: VITAMIN D3 125 MCG (5,000 UNITS) CAPSULE PO SCH (09:28)
[2021-02-10] MEDS: ENOXAPARIN 40 MG/0.4 ML (LOVENOX) SYR SC SCH (09:28)
--- NOTE | 2021-02-10 09:42 | Physical Therapy Daily Note ---
PT Daily Note-Current Subjective Patient in recliner pre tx, agrees to PT, has 4/10 pain in left hip. Appearance Patient in recliner post tx with nurse call, phone, tray, all needs met, chair alarm on. Mental Status Patient Orientation: Person, Confused, Place, Situation Transfers SCALE: Activities may be completed with or without assistive devices. 4-Naeymwunde-ugjdhwe completes the activity by him/herself with no assistance from a helper. 5-Set-up or Clean-up Assistance-helper sets up or cleans up; patient completes activity. [place] assists only prior to or following the activity. 4-Supervision or Touching Assistance-helper provides verbal cues and/or touching/steadying and/or contact guard assistance as patient completes activity. Assistance may be provided throughout the activity or intermittently. 3-Partial/Moderate Assistance-helper does LESS THAN HALF the effort. [place] lifts, holds or supports trunk or limbs, but provides less than half the effort. 2-Substantial/Maximal Assistance-helper does MORE THAN HALF the effort. [place] lifts or holds trunk or limbs and provides more than half the effort. 6-Mlqdgkcyl-aekptb does ALL the effort. Patient does none of the effort to complete the activity. Or, the assistance of 2 or more helpers is required for the patient to complete the activity. If activity was not attempted, code reason: 7-Patient Refused. 9-Not Applicable-not attempted and the patient did not perform the activity before the current illness, exacerbation or injury. 10-Not Attempted due to Environmental Limitations-(lack of equipment, weather restraints, etc.). 88-Not Attempted due to Medical Conditions or Safety Concerns. Sit to Stand (QC): 4 Chair/Spv-om-Pindr Xfer(QC): 4 Weight Bearing Right Lower Extremity: Right Full Weight Bearing Left Lower Extremity: Left Partial Weight Bearing Gait Training Distance: 20' Gait Persons Needed: 1 Gait Assistive Device: FWW very slow, antalgic, she is compliant with her PWB on the left leg. Exercises Seated Therapy Exercises: Ankle pumps, Long arc quads Seated Reps: 20 Treatments transfers, ambulation, LE strengthening Assessment Current Status: Fair Progress patient is making progress with functional mobility but very slow PT [facility]ent[facility] Goals [facility] Goals PT Process Cheese Cooker Goals Time Frame: Feb 14, 2021 Roll Left & Right (QC): 4 Sit to Lying (QC): 4 Lying-Sitting on Side/Bed(QC): 4 Sit to Stand (QC): 4 (SBA) Chair/Iev-im-Gtmho Xfer(QC): 4 (SBA) Walk 10 feet (QC): 4 (SBA) Walk 50ft with 2 Turns (QC): 4 (SBA) PT Plan Problem List Problem List: Activity Tolerance, Functional Strength, Safety, Balance, Gait, Transfer, Bed Mobility, ROM Treatment/Plan Treatment Plan: Continue Plan of Care Treatment Plan: Bed Mobility, Education, Functional Activity Zafar, Functional Strength, Gait, Safety, Therapeutic Exercise, Transfers Treatment Duration: Feb 14, 2021 Frequency: 11 times per week Estimated Hrs Per Day: .25 hour per day Patient and/or Family Agrees t: Yes Safety Risks/Education Patient Education: Gait Training, Transfer Techniques, Reviewed Precautions, Correct Positioning, Safety Issues Teaching Recipient: Patient Teaching Methods: Demonstration, Discussion Response to Teaching: Reinforcement Needed Time/GCodes Time In: 918 Time Out: 933 Total Billed Treatment Time: 15 Total Billed Treatment 1 visit FA 15' CHRIS GOLD PT Feb 10, 2021 09:41
[2021-02-10 09:54] LABS: HEMATOCRIT 25 % (35-52); HEMOGLOBIN 8.4 g/dL (11.5-16.0); MEAN CORPUSCULAR HEMOGLOBIN 31 pg (25-34); MEAN CORPUSCULAR HGB CONC 33 g/dL (32-36); MEAN CORPUSCULAR VOLUME 93 fL (80-99); MEAN PLATELET VOLUME 10.8 fL (9.0-12.2); PLATELET COUNT 223 10^3/uL (130-400)
[2021-02-10 12:00] VITALS: BP 165/74
[2021-02-10] MEDS ORDERED: HYDR-34 PO (12:13)
[2021-02-10] MEDS ORDERED: SENN1TAB76 PO (12:13)
[2021-02-10] MEDS ORDERED: FERR325T24 PO (12:13)
--- NOTE | 2021-02-10 12:16 | Discharge Summary ---
Discharge Summary Hospital Course Hospital Course Date of Admission: Feb 05, 2021 at 18:23 Admission Diagnosis : Left hip fracture Family Physician/Provider: Rosario Luis MD Date of Discharge: 02/10/21 Discharge Diagnosis: Left hip fracture Acute blood loss anemia Hypotension post-operatively Atrial fibrillation Hypertension Hospital Course: Admitted with left hip fracture, repaired and had fairly unremarkable post-op course, significant anemia not requiring transfusion, started iron. Mild confusion at times but alert and oriented x 3. Initially hypotensive after surgery, resolved with IVF and became hypertensive ultimately requiring resum ption of home meds. Labs and Pending Lab Test: Laboratory Tests 02/10/21 09:42: White Blood Count 8.0, Red Blood Count 2.72L, Hemoglobin 8.4L, Hematocrit 25L, Mean Corpuscular Volume 93, Mean Corpuscular Hemoglobin 31, Mean Corpuscular Hemoglobin Concent 33, Red Cell Distribution Width 13.4, Platelet Count 223, Mean Platelet Volume 10.8 Microbiology 02/05/21 MRSA Screen - Final, Complete MRSA not isolated Home Meds Active Stool Softener-Laxative Tablet (Sennosides/Docusate Sodium) 1 Each Tablet 2 Ea PO BID Ferosul (Ferrous Sulfate) 325 Mg Tablet 325 Mg PO BID WITH MEALS Reported Vitamin D3 (Cholecalciferol (Vitamin D3)) 125 Mcg Capsule 125 Mcg PO DAILY Xarelto (Rivaroxaban) 20 Mg Tablet 20 Mg PO DAILY Amlodipine Besylate 5 Mg Tablet 5 Mg PO DAILY Benazepril-Hctz 20-25 mg Tab (Benazepril/Hydrochlorothiazide) 1 Each Tablet 1 Each PO DAILY Metoprolol Succinate 100 Mg Tab.er.24h 100 Mg PO DAILY Flintstones (Multivitamin) 1 Each Tab.chew 1 Each PO DAILY Skilled NF Admit to: [facility] Certification (SNF) I certify that SNF services are required to be given on an inpatient basis because of the above named patient's need for penitentiary care on a c ontinuing basis for the conditions(s) for which he/she was receiving inpatient hospital services prior to his/her transfer to the SNF. Shelter Facility Order: Nursing Services, Physical Therapy-Evaluate & Treat Oxygen Delivery Method: Room Air Discharge Diet: Cardiac Diet Rebekah Champagne Feb 10, 2021 12:14 Discharge Physical Exam General: Alert, Oriented X3 Lungs: Clear to Auscultation, Normal Air Movement Heart: Regular Rate, No Murmurs Neuro: Normal Speech Psych/Mental Status: Mood NL REBEKAH CHAMPAGNE MD Feb 10, 2021 12:16
[2021-02-10] MEDS ORDERED: ACHD5005 PO (14:02)
[2021-02-11] MEDS ORDERED: RIVAROXABAN 20 MG TABLET (XARELTO) PO SCH (08:00)
--- NOTE | 2021-02-11 11:51 | Physician Query Clarification ---
PQ-Further Specificity Admission/Discharge Admission Date: Feb 05, 2021 at 18:23 Discharge Date: Feb 10, 2021 at 13:49 Dr. Champagne, The medical record reflects the following clinical scenario: History/Risk Factors: Lt intertrochanteric fx, persistent atrial fibrillation Clinical Findings: 02/05 lt hip xray - Acute intertrochanteric fracture of left proximal femur, with varus angulation. Underlying osteopenia and mild degenerative changes. Treatment: IM nailing Lt femur Question: Can you further specify if the intertrochanteric fx is due to osteoporosis or trauma per the clinical indicators above? Dr. Issa PN stated; This is highly likely a pathologic fracture due to osteoporosis Please document a response in the Progress Notes or Discharge Summary. 1. Lt.intertrochanteric fx due to osteoporosis 2. Lt. intertrochanteric fx due to trauma 3. Other, with explanation of the clinical findings. 4. Clinically undetermined, no explanation for the clinical findings. PHYSICIAN RESPONSE Can you specify per above: Clinically undetermined Please remember a lack of response to the above will prompt a phone page by CDI/Coding staff. In responding to this query, please exercise your independent professional judgment. The purpose of this communication is to more accurately reflect the complexity of your patients condition. The fact that a question is asked does not imply that any particular answer is desired or expected. Thank you for your timely response to this clarification. Requestors name: [place] THIS PHYSICIAN QUERY FORM IS A PERMANENT PART OF THE MEDICAL RECORD [place] Feb 11, 2021 11:51 REBEKAH CHAMPAGNE MD Feb 11, 2021 16:45
== END 2021-02-10 13:49 | DRG 481 ==
LOC: EDUNIT# 16:22 → ER 16:23 → 4TH 18:23
PROVIDERS: ADMIT Internal Medicine; ATTEND Family Medicine
PROC: 0QS736Z Reposition Left Upper Femur with Intramedullary Internal Fixation Device, Percutaneous Approach (ICD-10-PCS; principal; 2021-02-06 07:53)
DX: S72.142A Displaced intertrochanteric fracture of left femur, initial encounter for closed fracture (principal); D62 Acute posthemorrhagic anemia; I48.19 Other persistent atrial fibrillation; N17.9 Acute kidney failure, unspecified; I95.9 Hypotension, unspecified; I34.0 Nonrheumatic mitral (valve) insufficiency; I10 Essential (primary) hypertension; H54.7 Unspecified visual loss; Z20.822 Contact with and (suspected) exposure to COVID-19; I25.10 Atherosclerotic heart disease of native coronary artery without angina pectoris; I25.2 Old myocardial infarction; Z95.5 Presence of coronary angioplasty implant and graft; Z85.42 Personal history of malignant neoplasm of other parts of uterus; Z79.82 Long term (current) use of aspirin; Z88.8 Allergy status to other drugs, medicaments and biological substances; W19.XXXA Unspecified fall, initial encounter
CPT/HCPCS: 36415; 71045; 76000; 80048; 82947; 83970; 85014; 85018; 85025; 85027; 87081; 87635; 87636; 93005; 94664; 94760; 96374; 96375; 96376

== ENCOUNTER → 2021-02-19 | Outpatient (CLI) | payer MEDICARE ==
[~2021-02-19] MED LIST changes: +ACHD5005 PO; +AMLO-250 PO; +BENA1TAB15 PO; +CHOL500050 PO; +FERR325T24 PO; +MTP100TCR PO; +RIVA20TA PO; +SENN1TAB76 PO
[2021-02-19 21:38] LABS: BILIRUBIN,URINE NEGATIVE (NEGATIVE); COLOR,URINE YELLOW; GLUCOSE, URINE (UA) NEGATIVE (NEGATIVE); KETONES,URINE NEGATIVE (NEGATIVE); LEUKOCYTE ESTERASE ,URINE 2+ (NEGATIVE); NITRITE,URINE POSITIVE (NEGATIVE); PROTEIN,URINE TRACE (NEGATIVE)
[2021-02-19 21:44] LABS: CLARITY,URINE SL CLOUDY
[2021-02-19 21:45] LABS: BACTERIA,URINE MODERATE /HPF; RBC,URINE RARE /HPF; SQUAMOUS EPITHELIAL CELL,UR RARE /HPF; WBC,URINE 50-100 /HPF
== END ==
LOC: LABNPT 21:31
PROVIDERS: ATTEND Internal Medicine
DX: D64.9 Anemia, unspecified (principal)
CPT/HCPCS: 81000; 87077; 87088; 87186

== ENCOUNTER → 2021-12-30 | Outpatient (CLI) | payer MEDICARE | LOC: CARD 08:22 | PROVIDERS: ATTEND Physician Assistant | DX: I08.1 Rheumatic disorders of both mitral and tricuspid valves (principal); I11.9 Hypertensive heart disease without heart failure | CPT/HCPCS: 93306 ==

== ENCOUNTER → 2022-11-01 | Outpatient (CLI) | payer MEDICARE ==
[~2022-11-01] MED LIST changes: +SENN-271 PO; -SENN1TAB76 PO
[2022-11-01 07:48] LABS: ALBUMIN 4.4 GM/DL (3.2-4.5); BILIRUBIN,TOTAL 1.5 MG/DL (0.1-1.0); CALCIUM 9.8 MG/DL (8.5-10.1); CREATININE SERUM 1.23 MG/DL (0.60-1.30); POTASSIUM 3.7 MMOL/L (3.6-5.0); TOTAL PROTEIN 7.7 GM/DL (6.4-8.2)
== END ==
LOC: LAB 07:01
PROVIDERS: ATTEND Physician Assistant
DX: E78.2 Mixed hyperlipidemia (principal)
CPT/HCPCS: 36415; 80053; 80061

== ENCOUNTER → 2022-11-01 | Outpatient (CLI) | payer MEDICARE ==
[~2022-11-01] MED LIST changes: +REGADENOSON 0.4 MG/5 ML SYR IV ONE
[2022-11-01] MEDS: CATHETER FLUSH 10 ML SYR IVP PRN ×2 (08:24→09:46)
[2022-11-01 09:41] VITALS: BP 189/108
--- NOTE | 2022-11-01 11:31 | Cardiology Stress Test Report ---
Stress Test Report Date of Procedure/Referring: Date of Procedure: Nov 01, 2022 PCP Rosario Luis MD Admitting Physician Admitting Physician: Attending Physician: Tai Arango MD Baseline Heart Rate: 94 Baseline Blood Pressure: Blood Pressure Systolic: 189 Blood Pressure Diastolic: 108 Baseline Vitals Vital Signs Date Time Temp Pulse Resp B/P (MAP) Pulse Ox O2 Delivery O2 Flow Rate FiO2 11/01/22 09:41 93 16 189/108 (135) 95 Baseline EKG: Baseline EKG: a fib Summary After explaining the procedure to the patient, she signed a consent and then brought to the stress nuclear laboratory. Patient received 0.4 mg Lexiscan for stress test, ECG, heart rate and blood pressure were monitored continuously. Resting and stress dose of radio tracer were injected, imaging was acquired and reviewed in short axis, horizontal long axis and vertical long axis views. TID: 1.04 SSS: 4 SDS: 4 EF: 86 Patient tolerated Lexiscan well Baseline atrial fibrillation with occasional PVCs and ventricular couplets noted during test Breast attenuation with mild decrease uptake at the anterior lateral segment with mild reversibility, overall there is no significant ischemia or infarction on SPECT images Small left ventricular size with good contractibility ejection fraction 86%. Copy Copies To 1: [facility] [place] Nov 01, 2022 11:30
== END ==
LOC: CARD 08:07
PROVIDERS: ATTEND Internal Medicine Cardiovascular Disease
DX: I10 Essential (primary) hypertension (principal); I25.10 Atherosclerotic heart disease of native coronary artery without angina pectoris
CPT/HCPCS: 78452; 93017; A9502